=== PATIENT | male | born 1935 | race Caucasian/White ===

== ENCOUNTER 2017-09-25 11:55 | Inpatient (IN) | payer OTHER ==
[2017-09-25] MEDS ORDERED: NA CHLORIDE 0.9% 500 ML ONE ×2 (12:19→13:33)
[2017-09-25] MEDS ORDERED: LEVALBUTEROL 1.25 MG/3 ML NEB ONE (12:19)
[2017-09-25] MEDS ORDERED: ACETAMINOPHEN 325 MG TABLET ONE (12:20)
[2017-09-25 12:47] LABS: Absolute Lymphocytes (CBC) 0.6 K/uL (0.7-4.9); Absolute Monocytes 0.9 K/uL (0.1-1.3); Absolute Neutrophil 5.3 K/uL (1.8-8.0); Basophils % 0.5 % (0-1.3); Eosinophils % 0.2 % (0-4.4); Hematocrit 38.5 % (39.6-49.0); Lymphocytes % 8.1 % (15.3-44.8); MCH 30.7 pg (27.0-35.0); MCV 90.7 fL (80-100); MPV 8.2 fL (7.6-11.3); Monocytes % 12.6 % (3.3-12.3); RBC Red Blood Cell Count 4.24 M/uL (4.33-5.43)
[2017-09-25 13:06] LABS: Albumin 2.8 g/dL (3.4-5.0); Bilirubin Direct 0.1 mg/dL (0-0.2); Bilirubin Total 0.5 mg/dL (0.2-1.0); Potassium 3.7 mmol/L (3.5-5.1); Protein, Total 6.6 g/dL (6.4-8.2)
[2017-09-25 13:11] LABS: Urine Blood 2+ (NEG); Urine Glucose NEGATIVE (NEG); Urine Protein 2+ (NEG); Urine pH 5.5 (5.0-7.0)
[2017-09-25 13:18] LABS: Urine Bacteria >50 /HPF (NONE SEEN); Urine Culture Reflex Order NOT NEEDED
[2017-09-25] MEDS ORDERED: CEFTRIAXONE/SWI 1gm 1 GM/10 ML SYR ONE (13:33)
--- NOTE | 2017-09-25 14:16 | RAD REPORT ---
EXAM DESCRIPTION: [place] Single View09/25/2017 12:40 pm CLINICAL HISTORY: cough COMPARISON: January 2017 FINDINGS: The lungs appear clear of acute infiltrate. The heart is normal size IMPRESSION: No acute abnormalities displayed
[2017-09-25] MEDS ORDERED: ACETAMINOPHEN 500 MG TAB PO PRN (14:59)
[2017-09-25] MEDS ORDERED: ONDANSETRON 4 MG/2 ML VIAL IV PRN (14:59)
[2017-09-25] MEDS: NA CHLORIDE 0.9% 1,000 ML IV SCH ×2 (15:00→20:20)
--- NOTE | 2017-09-25 15:12 | ER ---
Nurse's Notes [facility] Name: Selvin Florentino Age: 82 yrs Sex: Male : 1935 Arrival Date: 09/25/2017 Time: 11:56 Bed 17 Private MD: Diagnosis: Urinary tract infection, site not specified;Altered mental status, unspecified;Dehydration Presentation: 09/25 12:04 Presenting complaint: EMS states: called out for weakness since the , pt bed bound em normally, SPO2 90% RA, placed on NC, 94% on 2L, BP 152/79, HR 89, denies chest pain or shortness of breath. Transition of care: patient was not received from another setting of care. Onset of symptoms was September 21, 2017. Risk Assessment: Do you want to hurt yourself or someone else? Patient reports no desire to harm self or others. Care prior to arrival: None. 12:04 Method Of Arrival: EMS: [facility] em 12:04 Acuity: TRACI 3 iw 12:42 Initial Sepsis Screen: Does the patient meet any 2 criteria? RR > 20 per min. Temp em <36.0*C (96.8*F)) or > 38.3*C (100.4*F). Yes Does the patient have a suspected source of infection? No. Patient's initial sepsis screen is negative. Triage Assessment: 12:09 General: Appears in no apparent distress. uncomfortable, Behavior is calm. Pain: Denies em pain. Historical: - Allergies: 12:09 No Known Allergies; em - Home Meds: 13:14 aspirin 81 mg Oral TbEC 1 tab once daily [Active]; lisinopril 2.5 mg oral tab 1 tab em once daily [Active]; omeprazole 40 mg oral cpDR 1 cap once daily [Active]; metformin 1,000 mg Oral tab 1 tab 2 times per day [Active]; metoprolol tartrate 50 mg oral tab [Active]; tamsulosin 0.4 mg Oral cp24 2 caps once daily [Active]; cetirizine 10 mg oral tab 1 tab once daily [Active]; - PMHx: 12:09 Diabetes - NIDDM; Hypertension; neuropathy; urinary incontinence; em - PSHx: 15:40 Hernia repair; Appendectomy; bunion; iw - Immunization history:: Adult Immunizations up to date. - Social history:: Smoking status: unknown. - Ebola Screening: : Patient negative for fever greater than or equal to 101.5 degrees Fahrenheit, and additional compatible Ebola Virus Disease symptoms Patient denies exposure to infectious person Patient denies travel to an Ebola-affected area in the 21 days before illness onset No symptoms or risks identified at this time. - Family history:: not pertinent. - Hospitalizations: : No recent hospitalization is reported. Screenin:11 Abuse screen: Denies threats or abuse. Nutritional screening: No deficits noted. em Tuberculosis screening: No symptoms or risk factors identified. Fall Risk None identified. Assessment: 12:33 General: Appears in no apparent distress. uncomfortable, warm to touch. Behavior is em calm, cooperative. Pain: Denies pain. Neuro: Level of Consciousness is awake, alert, obeys commands, Oriented to person, place, time, situation. Cardiovascular: Capillary refill < 3 seconds Patient's skin is warm and dry. Respiratory: Airway is patent Respiratory effort is even, shallow, Respiratory pattern is regular, tachypnea Breath sounds are diminished in right upper lobe, right middle lobe and right lower lobe Onset: The symptoms/episode began/occurred reports weakness since September,, the patient has mild shortness of breath Parent/caregiver reports the patient having cough that is non-productive. GI: Abdomen is flat, Bowel sounds present X 4 quads. Abd is soft and non tender X 4 quads. : Parent/caregiver report the patient having incontinence. EENT: No signs and/or symptoms were reported regarding the EENT system. Derm: Skin is intact, Skin is pink, warm \T\ dry. Musculoskeletal: Parent/caregiver report the patient having reports he is bed bound due to neuropathy. 12:45 Reassessment: Patient appears in no apparent distress at this time. I agree with above iw assessment by Sukhdeep Wilkins LVN. 13:30 Reassessment: Patient appears in no apparent distress at this time. Patient and/or em family updated on plan of care and expected duration. Pain level reassessed. Patient is alert, oriented x 3, equal unlabored respirations, skin warm/dry/pink. BP 90/57, HR 87, SPO2 94 2L via [place], Dr. Cole notified of VS, will continue to monitor. 14:18 Reassessment: Patient appears in no apparent distress at this time. resting comfortably em with eyes closed, family at bedside. 15:10 Reassessment: Patient appears in no apparent distress at this time. Patient and/or em family updated on plan of care and expected duration. Pain level reassessed. Patient states symptoms have improved. 15:41 Reassessment: Patient appears in no apparent distress at this time. Patient and/or iw family updated on plan of care and expected duration. Pain level reassessed. given socks and warm blanket. Vital Signs: 12:09 BP 152 / 79; Pulse 79; Resp 24; Pulse Ox 92% on 2 lpm NC; Weight 83.91 kg; Height 6 ft. em 2 in. (187.96 cm); Pain 0/10; 12:12 Temp 101.3(R); em 13:18 BP 95 / 59; Pulse 87; Resp 19; Pulse Ox 95% on 2 lpm NC; em 13:30 BP 90 / 57; Pulse 84; Resp 22; Pulse Ox 94% on 2 lpm NC; iw 14:00 BP 94 / 55; Pulse 82; Resp 22; Temp 99.2(R); Pulse Ox 92% on 2 lpm NC; em 14:30 BP 107 / 61; Pulse 76; Resp 20; Pulse Ox 97% on 2 lpm NC; em 12:09 Body Mass Index 23.75 (83.91 kg, 187.96 cm) em ED Course: 11:56 Patient arrived in ED. rn 11:56 Morris Cole MD is Attending Physician. rn 11:59 Sukhdeep Wilkins LVN is Primary Nurse. em 12:11 Arm band placed on. em 12:12 Patient has correct armband on for positive identification. Bed in low position. Call em light in reach. Side rails up X2. Adult w/ patient. 12:30 Initial lab(s) drawn, by id, sent to lab. First set of blood cultures drawn by id, [facility] Second set of blood cultures drawn by id. 12:36 Inserted saline lock: 22 gauge in right forearm, using aseptic technique. Blood 5 collected. 12:38 Pillow given. client representative on. Pulse ox on. NIBP on. mh5 12:40 XRAY CXR (1 view) In Process Unspecified. EDMS 13:08 Urine collected: straight cath specimen, cloudy, Amount Returned: 200mL. 5 13:09 Urine Culture Sent. 5 13:09 Urine Microscopic Only Sent. 5 13:10 Triage completed. iw 13:10 Lactate Sent. 5 13:10 Procalcitonin Sent. 5 13:10 Blood Culture Adult (2) Sent. 5 14:37 No provider procedures requiring assistance completed. em 15:11 Genevieve Lanier MD is Hospitalizing Provider. rn 15:38 Patient admitted, IV remains in place. iw Administered Medications: 12:29 Drug: Xopenex 1.25 mg Route: Inhalation; em 13:00 Follow up: Response: No adverse reaction em 12:29 Drug: Tylenol 650 mg Route: PO; em 14:15 Follow up: Response: No adverse reaction; Pain is decreased em 12:45 Drug: NS 0.9% 500 ml Route: IV; Rate: bolus; Site: right forearm; em 13:30 Follow up: IV Status: Completed infusion; IV Intake: 500ml em 13:34 Drug: NS 0.9% 500 ml Route: IV; Rate: bolus; Site: right forearm; em 14:16 Follow up: IV Status: Completed infusion; IV Intake: 500ml em 13:35 Drug: Rocephin - (cefTRIAXone) 1 grams Route: IVPB; Infused Over: 30 mins; Site: right iw forearm; 14:17 Follow up: IV Status: Completed infusion; IV Intake: 10ml em 15:21 Not Given (Physician Discretion): D5-NS 1000 ml IV at 125 ml/hr continuous iw 15:27 Drug: NS 0.9% 1000 ml Route: IV; Rate: 100 ml/hr; Site: right forearm; em 15:35 Follow up: IV Status: Infusion continued upon admission em Intake: 13:30 IV: 500ml; Total: 500ml. em 14:16 IV: 500ml; Total: 1000ml. em 14:17 IV: 10ml; Total: 1010ml. em Outcome: 15:11 Decision to Hospitalize by Provider. rn 15:42 Admitted to Tele accompanied by tech, family with patient, via stretcher, room 403, iw with oxygen, with chart, Report called to SHERIE Collier 15:42 Condition: good 15:42 Instructed on the need for admit, Demonstrated understanding of instructions. 16:00 Patient left the ED. em Signatures: Dispatcher [employer] EDSukhdeep Harman, IT ARCHITECT IT ARCHITECT em Kamila Moreland, Morris Najera RN, MD MD rn Martinez, Maria [facility] Corrections: (The following items were deleted from the chart) 12:12 12:04 Presenting complaint: EMS states: called out for weakness since the , pt bed em bound normally, SPO2 90% RA, placed on NC, 94% on 2L, BP 152/79, HR 89 em
--- NOTE | 2017-09-25 15:12 | EDPHYS ---
Physician Documentation [facility] Name: Selvin Flornetino Age: 82 yrs Sex: Male : 1935 Arrival Date: 09/25/2017 Time: 11:56 Bed 17 Private MD: ED Physician Morris Cole HPI: 09/25 12:11 This 82 yrs old Male presents to ER via EMS with complaints of altered mental rn status. 12:11 The patient presents with confusion, decreased responsiveness. Onset: The rn symptoms/episode began/occurred yesterday. Possible causes: unknown. Current symptoms: In the emergency department the patient's symptoms are unchanged from the initial presentation. It is unknown whether or not the patient has had similar symptoms in the past. + altered mental status since yesterday, + cough, feels warm, decreased responsiveness.. Historical: - Allergies: 12:09 No Known Allergies; em - Home Meds: 13:14 aspirin 81 mg Oral TbEC 1 tab once daily [Active]; lisinopril 2.5 mg oral tab 1 tab em once daily [Active]; omeprazole 40 mg oral cpDR 1 cap once daily [Active]; metformin 1,000 mg Oral tab 1 tab 2 times per day [Active]; metoprolol tartrate 50 mg oral tab [Active]; tamsulosin 0.4 mg Oral cp24 2 caps once daily [Active]; cetirizine 10 mg oral tab 1 tab once daily [Active]; - PMHx: 12:09 Diabetes - NIDDM; Hypertension; neuropathy; urinary incontinence; em - PSHx: 15:40 Hernia repair; Appendectomy; bunion; iw - Immunization history:: Adult Immunizations up to date. - Social history:: Smoking status: unknown. - Ebola Screening: : Patient negative for fever greater than or equal to 101.5 degrees Fahrenheit, and additional compatible Ebola Virus Disease symptoms Patient denies exposure to infectious person Patient denies travel to an Ebola-affected area in the 21 days before illness onset No symptoms or risks identified at this time. - Family history:: not pertinent. - Hospitalizations: : No recent hospitalization is reported. 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 Eyes: Pupils equal round and reactive to light, extra-ocular motions intact. Lids and lashes normal. Conjunctiva and sclera are non-icteric and not injected. Cornea within normal limits. Periorbital areas with no swelling, redness, or edema. ENT: dry MM Cardiovascular: Regular rate and rhythm with a normal S1 and S2. No gallops, murmurs, or rubs. Normal PMI, no JVD. No pulse deficits. Respiratory: + tachypnea with mouth breathing, diminished breath sounds right side Abdomen/GI: Soft, non-tender, with normal bowel sounds. No distension or tympany. No guarding or rebound. No evidence of tenderness throughout. Skin: Warm, dry, no evidence of cellulitis. MS/ Extremity: Pulses equal, no cyanosis. Neurovascular intact. Neuro: Somnolent, answers questions, moves all 4 extremities with moderate weakness, can't keep limbs off of bed, slow speech Vital Signs: 12:09 BP 152 / 79; Pulse 79; Resp 24; Pulse Ox 92% on 2 lpm NC; Weight 83.91 kg; Height 6 ft. em 2 in. (187.96 cm); Pain 0/10; 12:12 Temp 101.3(R); em 13:18 BP 95 / 59; Pulse 87; Resp 19; Pulse Ox 95% on 2 lpm NC; em 13:30 BP 90 / 57; Pulse 84; Resp 22; Pulse Ox 94% on 2 lpm NC; iw 14:00 BP 94 / 55; Pulse 82; Resp 22; Temp 99.2(R); Pulse Ox 92% on 2 lpm NC; em 14:30 BP 107 / 61; Pulse 76; Resp 20; Pulse Ox 97% on 2 lpm NC; em 12:09 Body Mass Index 23.75 (83.91 kg, 187.96 cm) em MDM: 11:56 Patient medically screened. rn 15:09 Differential Diagnosis: electrolyte abnormality, pneumonia, sepsis, UTI, volume rn depletion. Data reviewed: vital signs, nurses notes, lab test result(s), EKG, radiologic studies, plain films, and as a result, I will admit patient. Counseling: I had a detailed discussion with the patient and/or guardian regarding: the historical points, exam findings, and any diagnostic results supporting the discharge/admit diagnosis, lab results, radiology results, the need for further work-up and treatment in the hospital. Response to treatment: the patient's symptoms have mildly improved after treatment, and as a result, I will admit patient. Admission orders: after a detailed discussion of the patient's condition and case, the admit orders are written by me. ED course: Admitted to Dr. Lanier for UTI and delirium/dehydration. Improved BP with fluids.. 09/25 12:00 Order name: Blood Culture Adult (2) rn 09/25 12:00 Order name: BMP; Complete Time: 13:46 rn 09/25 12:00 Order name: CBC with Diff; Complete Time: 13:04 rn 09/25 12:00 Order name: Hepatic Function; Complete Time: 13:46 rn 09/25 12:00 Order name: Lipase; Complete Time: 13:46 rn 09/25 12:00 Order name: NT PRO-BNP; Complete Time: 13:46 rn 09/25 12:00 Order name: XRAY CXR (1 view); Complete Time: 14:17 rn 09/25 12:00 Order name: Troponin (emerg Dept Use Only); Complete Time: 13:46 rn 09/25 12:00 Order name: Procalcitonin; Complete Time: 13:46 rn 09/25 12:00 Order name: Lactate; Complete Time: 13:46 rn 09/25 12:00 Order name: Urine Microscopic Only; Complete Time: 13:46 rn 09/25 12:00 Order name: Urine Culture rn 09/25 13:09 Order name: Urine Dipstick--Ancillary (enter results); Complete Time: 13:46 bd 09/25 12:00 Order name: EKG; Complete Time: 12:00 rn 09/25 12:00 Order name: Cardiac monitoring; Complete Time: 12:13 rn 09/25 12:00 Order name: EKG - Nurse/Tech; Complete Time: 12:13 rn 09/25 12:00 Order name: IV Saline Lock; Complete Time: 12:13 rn 09/25 12:00 Order name: Labs collected and sent; Complete Time: 12: rn 09/25 12:00 Order name: O2 Per Protocol; Complete Time: 12:13 rn 09/25 12:00 Order name: O2 Sat Monitoring; Complete Time: 12: rn 09/25 12:00 Order name: Urine Dipstick-Ancillary (obtain specimen); Complete Time: 13: rn 09/25 15:02 Order name: Physical Therapy Consult EDMS 09/25 15:02 Order name: Heart Healthy EDMS Administered Medications: 12:29 Drug: Xopenex 1.25 mg Route: Inhalation; em 13:00 Follow up: Response: No adverse reaction em 12:29 Drug: Tylenol 650 mg Route: PO; em 14:15 Follow up: Response: No adverse reaction; Pain is decreased em 12:45 Drug: NS 0.9% 500 ml Route: IV; Rate: bolus; Site: right forearm; em 13:30 Follow up: IV Status: Completed infusion; IV Intake: 500ml em 13:34 Drug: NS 0.9% 500 ml Route: IV; Rate: bolus; Site: right forearm; em 14:16 Follow up: IV Status: Completed infusion; IV Intake: 500ml em 13:35 Drug: Rocephin - (cefTRIAXone) 1 grams Route: IVPB; Infused Over: 30 mins; Site: right iw forearm; 14:17 Follow up: IV Status: Completed infusion; IV Intake: 10ml em 15:21 Not Given (Physician Discretion): D5-NS 1000 ml IV at 125 ml/hr continuous iw 15:27 Drug: NS 0.9% 1000 ml Route: IV; Rate: 100 ml/hr; Site: right forearm; em 15:35 Follow up: IV Status: Infusion continued upon admission em Disposition: 09/25/17 15:11 Hospitalization ordered by Genevieve Lanier for Inpatient Admission. Preliminary diagnosis are Urinary tract infection, site not specified, Altered mental status, unspecified, Dehydration. - Bed requested for Telemetry/MedSurg (Inpatient). - Status is Inpatient Admission. em - Condition is Stable. - Problem is new. - Symptoms have improved. UTI on Admission? Yes Signatures: Dispatcher [employer] EDMS Katherine Jorgensen bd Maryjane Doshi, SHERIE REHMAN dw Sukhdeep Wilkins, BRAZING FURNACE FEEDER BRAZING FURNACE FEEDER em Kamila Moreland, RN SHERIE iw Morris Cole MD MD heel varnisher: (The following items were deleted from the chart) 15:24 15:11 Hospitalization Ordered by Genevieve Lanier MD for Inpatient Admission. Preliminary dw diagnosis is Urinary tract infection, site not specified; Altered mental status, unspecified; Dehydration. Bed requested for Telemetry/MedSurg (Inpatient). Status is Inpatient Admission. Condition is Stable. Problem is new. Symptoms have improved. UTI on Admission? Yes. rn 15:24 15:24 09/25/2017 15:11 Hospitalization Ordered by Genevieve Lanier MD for Inpatient bd Admission. Preliminary diagnosis is Urinary tract infection, site not specified; Altered mental status, unspecified; Dehydration. Bed requested for Telemetry/MedSurg (Inpatient). Status is Inpatient Admission. Condition is Stable. Problem is new. Symptoms have improved. UTI on Admission? Yes. dw 16:00 15:24 09/25/2017 15:11 Hospitalization Ordered by Genevieve Lanier MD for Inpatient em Admission. Preliminary diagnosis is Urinary tract infection, site not specified; Altered mental status, unspecified; Dehydration. Bed requested for Telemetry/MedSurg (Inpatient). Status is Inpatient Admission. Condition is Stable. Problem is new. Symptoms have improved. UTI on Admission? Yes. bd
--- NOTE | 2017-09-25 16:11 | P.HP ---
Certification for Inpatient Patient admitted to: Inpatient With expected LOS: >2 Midnights Patient will require the following post-hospital care: None Practitioner: I am a practitioner with admitting privileges, knowledge of patient current condition, hospital course, and medical plan of care. Services: Services provided to patient in accordance with Admission requirements found in Title 42 Section 412.3 of the Code of Federal Regulations Patient History Date of Service: 09/25/17 Primary Care Provider: Dr Emmett gunter Reason for admission: AMS History of Present Illness: This is a 82-year-old male with significant past medical history of AAA, diabetes, hypertension, CAD, hyperlipidemia, who presented to the ED complaining of having generalized weakness and has been somnolence since past 4 days. Patient's at bedside stated that patient has been increasingly sleepy for past 4 days and has been having some generalized weakness. Patient at baseline usually does sleep a lot per at bedside and his bed-bound does get around with electric scooter however noted that recently he has been sleeping more than usual and has been not able to get up to his electric scooter. Did have fever at the house however patient shins did not measure that at home and having some trouble urinating as well. No other complaints to offer this time denies having any shortness of breath chest pain nausea vomiting or any other associated symptoms at this time. In the ER patient was found to be hypotensive along with UA which was concerning for UTI and thus medicine team was consulted to admit the patient for further care. Patient also had a T-max of 101 in the ER. Allergies No Known Allergies Allergy (Unverified 01/19/17 07:00) Home Medications: Aspirin 81 mg PO DAILY 12/13/12 Fluvastatin Sodium [Lescol Xl] 80 mg PO DAILY 12/13/12 Tamsulosin [Flomax*] 2 cap PO BEDTIME 12/13/12 Ascorbate Calcium [Vitamin C] 500 mg PO DAILY 01/19/17 Cetirizine HCl 10 mg PO DAILY 01/19/17 Cinnamon Bark [Cinnamon] 1,000 mg PO DAILY 01/19/17 Cyanocobalamin (Vitamin B-12) [Vitamin B-12] 1,000 mcg PO DAILY 01/19/17 Suri Root 550 mg PO DAILY 01/19/17 Green Tea [place] Extract [Green Tea] 315 mg PO DAILY 01/19/17 Krill/[place]-3/Dha/Epa/Lipids [[place]-3 Krill Oil 500 mg Sfgl] 1 cap PO DAILY Lisinopril [Zestril] 2.5 mg PO DAILY 01/19/17 Lutein 20 mg PO DAILY 01/19/17 Magnesium Oxide [Magnesium] 500 mg PO DAILY 01/19/17 Metformin HCl 1,000 mg PO BID 01/19/17 Metoprolol Succinate [Toprol Xl] 50 mg PO DAILY 01/19/17 Niacin 500 mg PO DAILY 01/19/17 Omeprazole [Prilosec] 40 mg PO DAILY 01/19/17 Potassium 99 mg PO DAILY 01/19/17 Prasterone (Dhea) [Dhea] 50 mg PO DAILY 01/19/17 Red Yeast Rice 1,200 mg PO DAILY 01/19/17 Turmeric Root Extract [Turmeric] 500 mg PO DAILY 01/19/17 Ubidecarenone [Ultra Coq10] 1 cap PO DAILY 01/19/17 Zinc 50 mg PO DAILY 01/19/17 - Past Medical/Surgical History Diabetic: Yes -: diabetes -: high cholesterol -: GERD -: HTN -: pneumonia -: Inguinal hernia -: Aortic Stent -: Hernia repair -: appendectomy -: Cholecystectomy - Social History Alcohol use: No CD- Drugs: No Caffeine use: No Review of Systems General: As per HPI Physical Examination - Physical Exam General: In no apparent distress, Oriented x1, Other ([place]om[place]onentq) HEENT: Atraumatic Neck: Supple Respiratory: Clear to auscultation bilaterally, Normal air movement Cardiovascular: Regular rate/rhythm, Normal S1 S2 Gastrointestinal: Normal bowel sounds, Soft and benign, Non-distended, No tenderness Musculoskeletal: No tenderness Integumentary: No rashes Neurological: Normal gait, Normal speech, Normal strength at 5/5 x4 extr, Normal tone, Normal affect Lymphatics: No axilla or inguinal lymphadenopathy - Studies Laboratory Data (last 24 hrs) 09/25/17 12:15: WBC 6.8, Hgb 13.0 L, Hct 38.5 L, Plt Count 211 09/25/17 12:15: Sodium 139, Potassium 3.7, BUN 13, Creatinine 1.10, Glucose 176 H, Total Bilirubin 0.5, AST 10 L, ALT 15, Alkaline Phosphatase 78, Lipase 71 L Assessment and Plan - Problems (Diagnosis) (1) Toxic encephalopathy Current Visit: Yes Status: Acute Plan: AMS most likely secondary to urinary tract infection. -will go ahead and get an head CT to rule out any acute CVA. -UA was positive for more than 50 bacteria along with leuk Estrace. Patient will be started on IV antibiotics at this time. Will monitor for improvement. (2) UTI (urinary tract infection) Current Visit: Yes Status: Acute Plan: UA positive for UTI. -IV antibiotics at this time Rocephin. -will get blood culture and urine culture this time as well. -will follow up with labs in morning. Qualifiers: Urinary tract infection type: acute cystitis Hematuria presence: without hematuria Qualified Code(s): N30.00 - Acute cystitis without hematuria (3) Generalized weakness Current Visit: No Status: Chronic Plan: Generalized weakness most likely secondary to infectious disease. Will go ahead and hydrate patient along with IV antibiotics. Will also consult physical therapy at this time. Patient generally is not very mobile at home he uses electric scooter to get around. assists with his activities of daily living. At most patient is able to sit up in the chair or at the edge of the bed. Will go ahead and get physical therapy for rehab here in the hospital. (4) AAA (abdominal aortic aneurysm) Onset Date: 01/19/17 Current Visit: No Status: Chronic Plan: Currently stable at this time will go ahead and restart all the medications at this time. Qualifiers: Presence of rupture: without rupture (5) CAD (coronary artery disease) Onset Date: 01/19/17 Current Visit: No Status: Chronic Plan: Currently stable at this time in no chest pain noted. Will restart medications from home Qualifiers: Coronary Disease-Associated Artery/Lesion type: [place] artery [place] vs. transplanted heart: [place] heart Associated angina: without angina Qualified Code(s): I25.10 - Atherosclerotic heart disease of [place] coronary artery without angina pectoris (6) Diabetes mellitus Onset Date: 01/19/17 Current Visit: No Status: Chronic Plan: Will place patient on insulin sliding scale moderate at this Qualifiers: Diabetes mellitus type: type 2 Diabetes mellitus long-term insulin use: without long-term use Diabetes mellitus complication status: without complication Qualified Code(s): E11.9 - Type 2 diabetes mellitus without complications (7) HTN (hypertension) Onset Date: 01/19/17 Current Visit: No Status: Chronic Plan: Patient is initial blood pressure in the ER was hypotensive will hold blood pressure medication at this time. Most likely secondary to infectious process. Patient is currently status post 500 bolus and blood pressure has normalized. Will continue to monitor here along with cardiac tele. Qualifiers: Hypertension type: essential hypertension Discharge Plan: Home Plan to discharge in: 48 Hours - Advance Directives Does patient have a Living Will: No Does patient have a Durable POA for Healthcare: Yes - Code Status/Comfort Care Code Status Assessed: Yes Critical Care: No
[2017-09-25] MEDS: INSULIN -REGULAR HUMAN 50 UNIT/0.5 ML ML SQ SCH ×2 (16:30→20:20)
[2017-09-25 16:33] VITALS: BMI 23.2
[2017-09-25] MEDS: ENOXAPARIN 40 MG/0.4 ML SQ SCH (17:50)
[2017-09-25] MEDS: TAMSULOSIN 0.4 MG SR CAP PO SCH (20:20)
[2017-09-25] MEDS ORDERED: POTASSIUM 25 MEQ EFFERV TAB PO ONE (21:00)
[2017-09-26] MEDS: PANTOPRAZOLE 40MG TABLET PO SCH (05:31)
[2017-09-26 07:02] LABS: Absolute Lymphocytes (CBC) 0.8 K/uL (0.7-4.9); Absolute Monocytes 0.7 K/uL (0.1-1.3); Absolute Neutrophil 4.5 K/uL (1.8-8.0); Basophils % 0.5 % (0-1.3); Eosinophils % 0.3 % (0-4.4); Hematocrit 35.1 % (39.6-49.0); Lymphocytes % 12.5 % (15.3-44.8); MCH 30.8 pg (27.0-35.0); MCV 91.2 fL (80-100); MPV 8.5 fL (7.6-11.3); Monocytes % 11.8 % (3.3-12.3); RBC Red Blood Cell Count 3.85 M/uL (4.33-5.43)
[2017-09-26 07:11] LABS: Albumin 2.4 g/dL (3.4-5.0); Bilirubin Total 0.4 mg/dL (0.2-1.0); Magnesium 1.6 mg/dL (1.8-2.4); Phosphorus 2.8 mg/dL (2.5-4.9); Potassium 3.9 mmol/L (3.5-5.1); Protein, Total 5.8 g/dL (6.4-8.2)
[2017-09-26] MEDS: INSULIN -REGULAR HUMAN 50 UNIT/0.5 ML ML SQ SCH ×4 (07:30→21:00)
[2017-09-26] MEDS ORDERED: GLUCAGON 1 MG/VIAL IM PRN (07:32)
[2017-09-26] MEDS ORDERED: D50W 25 GM/50 ML SYRINGE IV PRN (07:32)
[2017-09-26] MEDS ORDERED: Magnesium Sulfate 1gm IVPB 1 GM/50 ML BAG IV ONE (07:45)
[2017-09-26] MEDS: LISINOPRIL 5 MG TAB PO SCH (08:31)
[2017-09-26] MEDS: METOPROLOL XL 50 MG TAB PO SCH (08:32)
[2017-09-26] MEDS: ASCORBIC ACID 500 MG TABLET PO SCH (08:32)
[2017-09-26] MEDS: CYANOCOBALAMIN 1,000 MCG TAB PO SCH (08:32)
[2017-09-26] MEDS: ASPIRIN 81 MG CHEWABLE TABLET PO SCH (08:32)
[2017-09-26] MEDS: CETIRIZINE HCL 5 MG TABLET PO SCH (08:32)
[2017-09-26] MEDS: CEFTRIAXONE/SWI 1gm 1 GM/10 ML SYR IV SCH (08:33)
[2017-09-26] MEDS ORDERED: CEFTRIAXONE 1 GM/NS 50 ML 1 GM/50 ML BAG IV SCH (09:00)
[2017-09-26] MEDS ORDERED: HOME MED 1 EA UNK (Omeprazole [Prilosec] 40 MG) PO SCH (09:00)
[2017-09-26] MEDS ORDERED: POTASSIUM 25 MEQ EFFERV TAB PO ONE (09:00)
[2017-09-26] MEDS: NA CHLORIDE 0.9% 1,000 ML IV SCH ×2 (11:00→22:54)
--- NOTE | 2017-09-26 12:23 | P.PN ---
Subjective Date of Service: 09/26/17 Primary Care Provider: Dr Emmett gunter Chief Complaint: AMS Patient seen and examined at bedside with RN. Chart reviewed. Currently patient is doing much better than before. Alert and oriented x2. Still appears to be a little drowsy however improved from yesterday. No other complaints to offer. Patient remained afebrile overnight did have runs of 7 seconds of V-tach at night time. Review of Systems General: As per HPI Physical Examination - Vital Signs Temperature: 98.6 F Blood Pressure: 160/78 Pulse: 68 Respirations: 16 Pulse Ox (%): 97 - Physical Exam General: Alert, In no apparent distress, Oriented x2 HEENT: Atraumatic, PERRLA, EOMI Neck: Supple, JVD not distended Respiratory: Clear to auscultation bilaterally, Normal air movement Cardiovascular: Regular rate/rhythm, Normal S1 S2 Gastrointestinal: Normal bowel sounds, No tenderness Musculoskeletal: No tenderness Integumentary: No rashes Neurological: Normal speech, Normal tone, Normal affect Lymphatics: No axilla or inguinal lymphadenopathy - Studies Laboratory Data (last 24 hrs) 09/25/17 12:15: WBC 6.8, Hgb 13.0 L, Hct 38.5 L, Plt Count 211 09/25/17 12:15: Sodium 139, Potassium 3.7, BUN 13, Creatinine 1.10, Glucose 176 H, Total Bilirubin 0.5, AST 10 L, ALT 15, Alkaline Phosphatase 78, Lipase 71 L Medications List Reviewed: Yes Assessment & Plan - Problems (Diagnosis) (1) Toxic encephalopathy Current Visit: Yes Status: Acute Plan: AMS most likely secondary to UTI -UA was positive for more than 50 bacteria along with leuk Estrace. -Patient on IV antibiotics at this time. Will monitor for improvement. (2) UTI (urinary tract infection) Current Visit: Yes Status: Acute Plan: UA positive for UTI. -IV antibiotics at this time Rocephin. -urine culture and blood culture pending this time -will follow up with labs in morning. Qualifiers: Urinary tract infection type: acute cystitis Hematuria presence: without hematuria Qualified Code(s): N30.00 - Acute cystitis without hematuria (3) Generalized weakness Current Visit: No Status: Chronic Plan: Generalized weakness most likely secondary to infectious disease. Will go ahead and hydrate patient along with IV antibiotics. Will also consult physical therapy at this time. Patient generally is not very mobile at home he uses electric scooter to get around. assists with his activities of daily living. At most patient is able to sit up in the chair or at the edge of the bed. Will go ahead and get physical therapy for rehab here in the hospital. (4) AAA (abdominal aortic aneurysm) Onset Date: 01/19/17 Current Visit: No Status: Chronic Plan: Currently stable at this time will go ahead and restart all the medications at this time. Qualifiers: Presence of rupture: without rupture (5) CAD (coronary artery disease) Onset Date: 01/19/17 Current Visit: No Status: Chronic Plan: Currently stable at this time in no chest pain noted. Will restart medications from home Qualifiers: Coronary Disease-Associated Artery/Lesion type: [place] artery [place] vs. transplanted heart: [place] heart Associated angina: without angina Qualified Code(s): I25.10 - Atherosclerotic heart disease of [place] coronary artery without angina pectoris (6) Diabetes mellitus Onset Date: 01/19/17 Current Visit: No Status: Chronic Plan: Will place patient on insulin sliding scale moderate at this Qualifiers: Diabetes mellitus type: type 2 Diabetes mellitus adjunct faculty for medical terminology insulin use: without adjunct faculty for medical terminology use Diabetes mellitus complication status: without complication Qualified Code(s): E11.9 - Type 2 diabetes mellitus without complications (7) HTN (hypertension) Onset Date: 01/19/17 Current Visit: No Status: Chronic Plan: Patient is initial blood pressure in the ER was hypotensive will hold blood pressure medication at this time. Most likely secondary to infectious process. Patient is currently status post 500 bolus and blood pressure has normalized. Will continue to monitor here along with cardiac tele. Qualifiers: Hypertension type: essential hypertension Discharge Plan: Home Plan to discharge in: 48 Hours - Code Status/Comfort Care Code Status Assessed: Yes Critical Care: No
[2017-09-26] MEDS: ENOXAPARIN 40 MG/0.4 ML SQ SCH (17:59)
[2017-09-26] MEDS: TAMSULOSIN 0.4 MG SR CAP PO SCH (21:02)
[2017-09-27 04:16] LABS: Absolute Lymphocytes (CBC) 0.8 K/uL (0.7-4.9); Absolute Monocytes 0.6 K/uL (0.1-1.3); Absolute Neutrophil 3.1 K/uL (1.8-8.0); Basophils % 0.7 % (0-1.3); Eosinophils % 4.1 % (0-4.4); Hematocrit 34.6 % (39.6-49.0); Lymphocytes % 17.1 % (15.3-44.8); MCH 31.1 pg (27.0-35.0); MCV 91.1 fL (80-100); MPV 8.2 fL (7.6-11.3); Monocytes % 13.5 % (3.3-12.3); RBC Red Blood Cell Count 3.79 M/uL (4.33-5.43)
[2017-09-27 04:28] LABS: Albumin 2.2 g/dL (3.4-5.0); Bilirubin Total 0.2 mg/dL (0.2-1.0); Potassium 4.2 mmol/L (3.5-5.1); Protein, Total 5.7 g/dL (6.4-8.2)
[2017-09-27] MEDS: PANTOPRAZOLE 40MG TABLET PO SCH (05:06)
[2017-09-27] MEDS: INSULIN -REGULAR HUMAN 50 UNIT/0.5 ML ML SQ SCH ×4 (07:30→20:56)
--- NOTE | 2017-09-27 07:46 | EKG ---
Test Date: 2017-09-25 Test Time: 12:03:33 Pan Dumper: LAINEY MEASUREMENT RESULTS: Intervals: Rate: 87 NM: 178 QRSD: 122 QT: 394 QTc: 474 [place]: P: 60 NM: 178 QRS: -39 T: 54 INTERPRETIVE STATEMENTS: Sinus rhythm with premature supraventricular complexes Left axis deviation Right bundle branch block Septal infarct, age undetermined Abnormal ECG Compared to ECG 01/19/2017 01:05:31 Atrial premature complex(es) now present Myocardial infarct finding now present First degree AV block no longer present Electronically Signed On 09-27-17 07:46:02 CDT by Forrest Zayas
[2017-09-27] MEDS: CEFTRIAXONE/SWI 1gm 1 GM/10 ML SYR IV SCH (08:27)
[2017-09-27] MEDS: CETIRIZINE HCL 5 MG TABLET PO SCH (08:28)
[2017-09-27] MEDS: CYANOCOBALAMIN 1,000 MCG TAB PO SCH (08:28)
[2017-09-27] MEDS: ASCORBIC ACID 500 MG TABLET PO SCH (08:28)
[2017-09-27] MEDS: LISINOPRIL 5 MG TAB PO SCH (08:28)
[2017-09-27] MEDS: ASPIRIN 81 MG CHEWABLE TABLET PO SCH (08:28)
[2017-09-27] MEDS: METOPROLOL XL 50 MG TAB PO SCH (08:28)
[2017-09-27] MEDS: NA CHLORIDE 0.9% 1,000 ML IV SCH ×3 (08:33→18:20)
[2017-09-27 08:48] VITALS: O2SAT 93
--- NOTE | 2017-09-27 11:51 | P.PN ---
Subjective Date of Service: 09/27/17 Primary Care Provider: Dr Emmett gunter Chief Complaint: AMS Patient seen and examined at bedside with RN. Chart reviewed. Currently patient is doing much better than before. Alert and oriented x2. Patient still exhibiting signs of generalized weakness. Currently has not worked with physical therapy today. Physically therapy saw the patient yesterday however patient was quite lethargic with them yesterday and had no strength bilateral lower extremity. Currently patient is awaiting physical therapy this morning. Review of Systems General: As per HPI Physical Examination - Vital Signs Temperature: 97.6 F Blood Pressure: 175/82 Pulse: 68 Respirations: 16 Pulse Ox (%): 93 - Physical Exam General: Alert, In no apparent distress, Oriented x2, [place] HEENT: Atraumatic, PERRLA, EOMI Neck: Supple, JVD not distended Respiratory: Clear to auscultation bilaterally, Normal air movement Cardiovascular: Regular rate/rhythm, Normal S1 S2 Gastrointestinal: Normal bowel sounds, No tenderness Musculoskeletal: No tenderness Integumentary: No rashes Neurological: Normal speech, Normal tone, Normal affect Lymphatics: No axilla or inguinal lymphadenopathy - Studies Microbiology Data (last 24 hrs): 09/25/17 13:07 Catheterized Urine Atkins Count - Final >100,000 CFU/ML. 09/25/17 13:07 Catheterized Urine - Final Escherichia Coli Medications List Reviewed: Yes Assessment & Plan - Problems (Diagnosis) (1) Generalized weakness Onset Date: 09/27/17 Current Visit: Yes Status: Chronic Plan: Generalized weakness most likely secondary to infectious disease. - Patient generally is not very mobile at home he uses electric scooter to get around. assists with his activities of daily living. At most patient is able to sit up in the chair or at the edge of the bed. - will have patient worked with physical therapy today. Give him 1 more days of IV antibiotics and therapy here in the hospital and will be able to be discharge in next 24-48 hr. (2) Toxic encephalopathy Onset Date: 09/27/17 Current Visit: Yes Status: Acute Plan: AMS most likely secondary to UTI, Resolved now -Urine culture positive for E. coli. [place] sensitive to of antibiotics. -patient currently on IV Rocephin can be switched to Augmentin on discharge. (3) UTI (urinary tract infection) Onset Date: 09/27/17 Current Visit: Yes Status: Acute Plan: UA positive for UTI. Urine culture positive for E. coli pansensitive to antibiotics. Will switch to Augmentin on discharge. Qualifiers: Urinary tract infection type: acute cystitis Hematuria presence: without hematuria Qualified Code(s): N30.00 - Acute cystitis without hematuria (4) AAA (abdominal aortic aneurysm) Onset Date: 01/19/17 Current Visit: No Status: Chronic Plan: Currently stable. Qualifiers: Presence of rupture: without rupture (5) CAD (coronary artery disease) Onset Date: 01/19/17 Current Visit: No Status: Chronic Plan: Currently stable at this time in no chest pain noted. Qualifiers: Coronary Disease-Associated Artery/Lesion type: [place] artery [place] vs. transplanted heart: [place] heart Associated angina: without angina Qualified Code(s): I25.10 - Atherosclerotic heart disease of [place] coronary artery without angina pectoris (6) Diabetes mellitus Onset Date: 01/19/17 Current Visit: No Status: Chronic Plan: On insulin sliding scale moderate at this Qualifiers: Diabetes mellitus type: type 2 Diabetes mellitus nursing home insulin use: without director human services use Diabetes mellitus complication status: without complication Qualified Code(s): E11.9 - Type 2 diabetes mellitus without complications (7) HTN (hypertension) Onset Date: 01/19/17 Current Visit: No Status: Chronic Plan: Currently stable. Restart home medication as needed. Qualifiers: Hypertension type: essential hypertension Discharge Plan: Home Plan to discharge in: 24 Hours - Code Status/Comfort Care Code Status Assessed: Yes Critical Care: No
[2017-09-27] MEDS: ENOXAPARIN 40 MG/0.4 ML SQ SCH (18:21)
[2017-09-27] MEDS: TAMSULOSIN 0.4 MG SR CAP PO SCH (20:56)
[2017-09-28] MEDS: NA CHLORIDE 0.9% 1,000 ML IV SCH ×2 (04:46→13:00)
[2017-09-28 05:53] LABS: Absolute Monocytes 0.7 K/uL (0.1-1.3); Absolute Neutrophil 2.9 K/uL (1.8-8.0); Basophils % 0.7 % (0-1.3); Eosinophils % 5.9 % (0-4.4); Hematocrit 35.5 % (39.6-49.0); Lymphocytes % 19.5 % (15.3-44.8); MCH 30.9 pg (27.0-35.0); MCV 91.4 fL (80-100); Monocytes % 14.7 % (3.3-12.3); RBC Red Blood Cell Count 3.88 M/uL (4.33-5.43)
[2017-09-28 06:07] LABS: Albumin 2.3 g/dL (3.4-5.0); Bilirubin Total 0.3 mg/dL (0.2-1.0); Magnesium 1.9 mg/dL (1.8-2.4); Protein, Total 5.7 g/dL (6.4-8.2)
[2017-09-28] MEDS: PANTOPRAZOLE 40MG TABLET PO SCH (06:34)
[2017-09-28] MEDS: INSULIN -REGULAR HUMAN 50 UNIT/0.5 ML ML SQ SCH ×2 (07:30→11:30)
[2017-09-28] MEDS: CEFTRIAXONE/SWI 1gm 1 GM/10 ML SYR IV SCH (10:38)
[2017-09-28] MEDS: LISINOPRIL 5 MG TAB PO SCH (10:40)
[2017-09-28] MEDS: METOPROLOL XL 50 MG TAB PO SCH (10:41)
[2017-09-28] MEDS: CETIRIZINE HCL 5 MG TABLET PO SCH (10:42)
[2017-09-28] MEDS: ASCORBIC ACID 500 MG TABLET PO SCH (10:42)
[2017-09-28] MEDS: ASPIRIN 81 MG CHEWABLE TABLET PO SCH (10:43)
[2017-09-28] MEDS: CYANOCOBALAMIN 1,000 MCG TAB PO SCH (10:43)
[2017-09-28 13:26] VITALS: BP 110/63; TEMP 97.1
--- NOTE | 2017-09-28 13:47 | P.DS ---
Admission Date: 09/25/17 Discharge Date: 09/28/17 Primary Care Provider: Dr. Christine([place], [place]); [facility] Disposition: ROUTINE DISCHARGE Discharge Condition: GOOD Reason for Admission: AMS - Problems (1) Toxic encephalopathy Onset Date: 09/27/17 Current Visit: Yes Status: Acute (2) UTI (urinary tract infection) Onset Date: 09/27/17 Current Visit: Yes Status: Acute Qualifiers: Urinary tract infection type: acute cystitis Hematuria presence: without hematuria Qualified Code(s): N30.00 - Acute cystitis without hematuria (3) CAD (coronary artery disease) Onset Date: 01/19/17 Current Visit: No Status: Chronic Qualifiers: Coronary Disease-Associated Artery/Lesion type: [place] artery [place] vs. transplanted heart: [place] heart Associated angina: without angina Qualified Code(s): I25.10 - Atherosclerotic heart disease of [place] coronary artery without angina pectoris (4) Diabetes mellitus Onset Date: 01/19/17 Current Visit: No Status: Chronic Qualifiers: Diabetes mellitus type: type 2 Diabetes mellitus half-way insulin use: without termination clerk use Diabetes mellitus complication status: without complication Qualified Code(s): E11.9 - Type 2 diabetes mellitus without complications (5) HTN (hypertension) Onset Date: 01/19/17 Current Visit: No Status: Chronic Qualifiers: Hypertension type: essential hypertension (6) BPH (benign prostatic hyperplasia) Current Visit: Yes Status: Chronic Qualifiers: Lower urinary tract symptom presence: unspecified whether lower urinary tract symptoms present Qualified Code(s): N40.0 - Benign prostatic hyperplasia without lower urinary tract symptoms (7) Hyperlipidemia Current Visit: Yes Status: Chronic Qualifiers: Hyperlipidemia type: unspecified Qualified Code(s): E78.5 - Hyperlipidemia , unspecified Brief History of Present Illness: 82-year-old male presented emergency room with altered mental status and increased fatigue. Patient found to have a UTI. Patient was admitted for treatment. Hospital Course: During the course of his stay the patient was treated for UTI. Patient responded well to medical therapy. Urine culture was positive for E coli. At discharge patient will continue with Bactrim DS 1 pill twice daily for 7 days. Recommendation on UTI prevention will need to be enforced. Patient has hypertension. Patient will continue with his medication including lisinopril 2.5 mg daily. Recommendation is to maintain blood pressures less 150 /80. Further adjust can be done by his PCP. Patient has Hyperlipidemia. He may continue with his medication-Niacin. Patient has BPH. He may continue with Flomax 0.8mg daily. Patient has DM. He may continue with Metformin 1000 mg one pill twice daily. Recommendation for BS less than 140 fasting and less than 200 after meals. Further adjustment can be done by his PCP. Fall precautions addressed. Patient may need PT as an outpatient. This can be done with the help of his PCP. Vital Signs/Physical Exam: Temp Pulse Resp BP Pulse Ox 97.1 F 76 20 110/63 95 09/28/17 12:00 09/28/17 12:00 09/28/17 12:00 09/28/17 12:00 09/28/17 12:00 General: Alert, In no apparent distress, Oriented x3, Cooperative HEENT: Atraumatic Neck: Supple Respiratory: Clear to auscultation bilaterally, Normal air movement Cardiovascular: Normal pulses, Regular rate/rhythm Gastrointestinal: Normal bowel sounds, Soft and benign, Non-distended, No tenderness, No masses, No rebound, No guarding Musculoskeletal: No erythema, No tenderness, No warmth Integumentary: No tenderness/swelling, No erythema, No warmth, No cyanosis Neurological: Normal speech, Normal strength at 5/5 x4 extr, Normal tone Laboratory Data at Discharge: WBC 4.9 K/uL (4.3-10.9) 09/28/17 05:21 Hgb 12.0 g/dL (13.6-17.9) L 09/28/17 05:21 Hct 35.5 % (39.6-49.0) L 09/28/17 05:21 Plt Count 240 K/uL (152-406) D 09/28/17 05:21 Sodium 141 mmol/L (136-145) 09/28/17 05:21 Potassium 4.0 mmol/L (3.5-5.1) 09/28/17 05:21 BUN 14 mg/dL (7-18) 09/28/17 05:21 Creatinine 0.90 mg/dL (0.55-1.3) 09/28/17 05:21 Glucose 139 mg/dL (74-106) H 09/28/17 05:21 Phosphorus 2.8 mg/dL (2.5-4.9) 09/26/17 06:02 Magnesium 1.9 mg/dL (1.8-2.4) 09/28/17 05:21 Total Bilirubin 0.3 mg/dL (0.2-1.0) 09/28/17 05:21 AST 15 U/L (15-37) 09/28/17 05:21 ALT 24 U/L (12-78) 09/28/17 05:21 Alkaline Phosphatase 60 U/L (45-117) 09/28/17 05:21 Lipase 71 U/L (73-393) L 09/25/17 12:15 Home Medications: Aspirin 81 mg PO DAILY 12/13/12 Tamsulosin [Flomax*] 2 cap PO BEDTIME 12/13/12 Ascorbate Calcium [Vitamin C] 500 mg PO DAILY 01/19/17 Cetirizine HCl 10 mg PO DAILY 01/19/17 Cinnamon Bark [Cinnamon] 1,000 mg PO DAILY 01/19/17 Cyanocobalamin (Vitamin B-12) [Vitamin B-12] 1,000 mcg PO DAILY 01/19/17 Suri Root 550 mg PO DAILY 01/19/17 Green Tea [place] Extract [Green Tea] 315 mg PO DAILY 01/19/17 Krill/[place]-3/Dha/Epa/Lipids [[place]-3 Krill Oil 500 mg Sfgl] 1 cap PO DAILY Lisinopril [Zestril] 2.5 mg PO DAILY 01/19/17 Lutein 20 mg PO DAILY 01/19/17 Magnesium Oxide [Magnesium] 500 mg PO DAILY 01/19/17 Metformin HCl 1,000 mg PO BID 01/19/17 Metoprolol Succinate [Toprol Xl] 50 mg PO DAILY 01/19/17 Niacin 500 mg PO DAILY 01/19/17 Omeprazole [Prilosec] 40 mg PO DAILY 01/19/17 Prasterone (Dhea) [Dhea] 50 mg PO DAILY 01/19/17 Red Yeast Rice 1,200 mg PO DAILY 01/19/17 Turmeric Root Extract [Turmeric] 500 mg PO DAILY 01/19/17 Ubidecarenone [Ultra Coq10] 100 mg PO DAILY 01/19/17 Zinc 50 mg PO DAILY 01/19/17 [place] 250 mg PO DAILY 09/25/17 Sulfamethoxazole/Trimethoprim [Bactrim Ds Tablet] 1 each PO BID #14 tablet 09/28 New Medications: Sulfamethoxazole/Trimethoprim [Bactrim Ds Tablet] 1 each PO BID #14 tablet Patient Discharge Instructions: 1. Follow up with PCP in one week. 2. Patient found to have a UTI. Patient responded well to medical therapy. Urine culture was positive for E coli. At discharge patient will continue with Bactrim DS 1 pill twice daily for 7 days. Recommendation on UTI prevention will need to be enforced. 3. Patient has hypertension. Patient will continue with his medication including lisinopril 2.5 mg daily. Recommendation is to maintain blood pressures less 150/80. Further adjust can be done by his PCP. 4. Patient has Hyperlipidemia. He may continue with his medication-Niacin. 5. Patient has BPH. He may continue with Flomax 0.8mg daily. 6. Patient has DM. He may continue with Metformin 1000 mg one pill twice daily. Recommendation for BS less than 140 fasting and less than 200 after meals. Further adjustment can be done by his PCP. 7. Fall precautions addressed. Patient may need PT as an outpatient. This can be done with the help of his PCP. Diet: AHA Activity: Fall precautions Time spent managing pt's care (in minutes): 55
== END 2017-09-28 15:19 | disposition home health service (06) | DRG 689 ==
LOC: ER 11:55 → ERHOLD 14:59 → 4TH 15:49
PROVIDERS: ADMIT Family Medicine; ATTEND Family Medicine
DX: N30.00 Acute cystitis without hematuria (principal); G92 Toxic encephalopathy; E86.0 Dehydration; I10 Essential (primary) hypertension; E11.40 Type 2 diabetes mellitus with diabetic neuropathy, unspecified; I25.10 Atherosclerotic heart disease of native coronary artery without angina pectoris; K21.9 Gastro-esophageal reflux disease without esophagitis; N40.0 Benign prostatic hyperplasia without lower urinary tract symptoms; E78.5 Hyperlipidemia, unspecified; B96.20 Unspecified Escherichia coli [E. coli] as the cause of diseases classified elsewhere; R53.1 Weakness; I71.4 Abdominal aortic aneurysm, without rupture; Z79.82 Long term (current) use of aspirin; Z79.84 Long term (current) use of oral hypoglycemic drugs; Z74.01 Bed confinement status
CPT/HCPCS: 36415; 71045; 80048; 80053; 80076; 81003; 81015; 82962; 83605; 83690; 83735; 83880; 84100; 84145; 84484; 85025; 87040; 87077; 87086; 87088; 87186; 93005; 96361; 96365; 97163; 99285; J0696; J1650; J3475; J7030

== ENCOUNTER 2018-05-24 23:33 | Observation (INO) | payer OTHER ==
[2018-05-25 00:15] LABS: Absolute Monocytes 0.6 K/uL (0.1-1.3); Absolute Neutrophil 5.8 K/uL (1.8-8.0); Basophils % 0.7 % (0-1.3); Eosinophils % 2.7 % (0-4.4); Hematocrit 39.5 % (39.6-49.0); Lymphocytes % 12.5 % (15.3-44.8); MPV 8.9 fL (7.6-11.3); RBC Red Blood Cell Count 4.17 M/uL (4.33-5.43)
[2018-05-25 00:37] LABS: ALT/SGPT 24 U/L (12-78); AST/SGOT 12 U/L (15-37); Albumin 3.4 g/dL (3.4-5.0); Alkaline Phosphatase 103 U/L (45-117); BUN Blood Urea Nitrogen 21 mg/dL (7-18); Bicarbonate 27 mmol/L (21-32); Bilirubin Direct 0.2 mg/dL (0-0.2); Bilirubin Total 0.4 mg/dL (0.2-1.0); Glucose Level 165 mg/dL (74-106); Magnesium 1.9 mg/dL (1.8-2.4); NT PRO-BNP 170 pg/mL (<450); Potassium 4.5 mmol/L (3.5-5.1); Protein, Total 6.4 g/dL (6.4-8.2); Sodium Level 141 mmol/L (136-145); Troponin (Emerg Dept Use Only) < 0.02 ng/mL (0.0-0.045)
--- NOTE | 2018-05-25 01:50 | ER ---
Nurse's Notes [facility] Name: Selvin Florentino Age: 83 yrs Sex: Male : 1935 Arrival Date: 05/24/2018 Time: 23:38 Bed 4 Private MD: Diagnosis: Syncope and collapse;Hypotension, unspecified Presentation: 05/24 23:38 Presenting complaint: EMS states: pt with diarrhea [id number]. pt in restroom at home ak1 feeling weak, dizzy. FSBG 176. 500mL NS given in route. pt with gait belt on, ambulates with assistance at home. at bedside. Transition of care: patient was not received from another setting of care. Onset of symptoms was May 24, 2018. Risk Assessment: Do you want to hurt yourself or someone else? Patient reports no desire to harm self or others. Initial Sepsis Screen: Does the patient meet any 2 criteria? No. Patient's initial sepsis screen is negative. Does the patient have a suspected source of infection? No. Patient's initial sepsis screen is negative. Care prior to arrival: IV in place. 23:38 Method Of Arrival: EMS: [facility] ak1 23:38 Acuity: TRACI 3 ak1 Triage Assessment: 23:43 General: Appears ill, slender, Behavior is cooperative, quiet. Pain: Denies pain. EENT: ak1 No signs and/or symptoms were reported regarding the EENT system. Neuro: Level of Consciousness is awake, alert, obeys commands, Oriented to person, place, situation, Moves all extremities. Speech is normal. Cardiovascular: No deficits noted. Respiratory: No deficits noted. GI: Reports diarrhea. : Reports incontinence. Derm: No signs and/or symptoms reported regarding the dermatologic system. Musculoskeletal: Reports weakness in general weakness. Historical: - Allergies: 23:43 No Known Allergies; ak1 - Home Meds: 23:43 aspirin 81 mg Oral TbEC 1 tab once daily [Active]; cetirizine 10 mg Oral tab 1 tab once ak1 daily [Active]; lisinopril 2.5 mg Oral tab 1 tab once daily [Active]; metoprolol tartrate 100 mg oral tab 1 tab once daily [Active]; metformin 1,000 mg Oral tab 1 tab 2 times per day [Active]; tamsulosin 0.4 mg Oral cp24 2 caps once daily [Active]; atorvastatin 80 mg oral tab 1 tab once daily [Active]; 23:58 magnesium oral 500 mg daily oral [Active]; niacin 500 mg daily [Active]; omega-3 Srill bb oil 500 mg daily [Active]; Zinc 50 mg daily [Active]; ultra CoQ10 100 mg daily [Active]; Cinnamon oral 1000 mg daily oral [Active]; potassium 99 mg daily [Active]; Vitamin C 500 mg daily [Active]; B-12 1000 mcg daily [Active]; lutein 20 mg daily [Active]; DHEA 50 mg daily [Active]; Lemon grass 400 mg daily [Active]; turmeric curcumin 500 mg daily [Active]; bilberry 250 mg daily [Active]; garlic 1000 mg miller [Active]; Vit E 400 IU daily [Active]; Folic acid 800 mcg daily [Active]; L-Carnitine 500 mg Oral tab daily [Active]; - PMHx: 23:43 Diabetes - NIDDM; Hypertension; Urinary incontinence; neuropathy; ak1 - PSHx: 23:43 Hernia repair; Appendectomy; bunion; ak1 - Immunization history:: Adult Immunizations unknown. - Social history:: Smoking status: unknown. - Ebola Screening: : No symptoms or risks identified at this time. Screenin:45 Abuse screen: Denies threats or abuse. Denies injuries from another. Nutritional ak1 screening: No deficits noted. Tuberculosis screening: No symptoms or risk factors identified. Fall Risk IV access (20 points). Ambulatory Aid- None/Bed Rest/Nurse Assist (0 pts). Gait- Weak (10 pts.). Assessment: 23:46 General: Appears ill, slender, pale. Behavior is cooperative, quiet. ak1 05/25 01:21 Reassessment: Patient appears in no apparent distress at this time. Patient and/or ak1 family updated on plan of care and expected duration. Pain level reassessed. Patient is alert, oriented x 3, equal unlabored respirations, skin warm/dry/pink. Patient states feeling better. Patient states symptoms have improved. 02:23 Reassessment: Patient appears in no apparent distress at this time. No changes from ak1 previously documented assessment. Patient and/or family updated on plan of care and expected duration. Pain level reassessed. Patient is alert, oriented x 3, equal unlabored respirations, skin warm/dry/pink. Patient states symptoms have improved. Vital Signs: 05/24 23:43 BP 112 / 66; Pulse 57; Resp 16; Temp 97.7(A); Pulse Ox 99% on R/A; Weight 79.38 kg (R); ak1 Height 6 ft. 2 in. (187.96 cm) (R); Pain 0/10; 05/25 01:02 BP 105 / 57; Pulse 61; Resp 16; Temp 97.7; Pulse Ox 99% on R/A; ak1 01:20 BP 100 / 62; Pulse 59; Resp 14; Temp 97.9(A); Pulse Ox 100% on R/A; ak1 01:38 BP 84 / 55; Pulse 58; bb 02:23 BP 110 / 62; Pulse 66; Resp 20; Temp 97.6; Pulse Ox 99% on R/A; Pain 0/10; ak1 05/24 23:43 Body Mass Index 22.47 (79.38 kg, 187.96 cm) ak1 ED Course: 05/24 23:38 Patient arrived in ED. ak1 23:38 Des Seaman MD is Attending Physician. tw4 23:40 Triage completed. ak1 23:43 Arm band placed on Patient placed in an exam room, on a stretcher, on oxygen, on ak1 monitoring tech, on pulse oximetry, Patient notified of wait time. 23:45 Patient has correct armband on for positive identification. Placed in gown. Bed in low ak1 position. Call light in reach. Side rails up X2. Adult w/ patient. court recording monitor on. Pulse ox on. NIBP on. Door closed. Warm blanket given. 23:45 Maintain EMS IV. Dressing intact. Site clean \T\ dry. Gauge \T\ site: 20g left AC. ak 1 23:47 Maddie Lujan RN is Primary Nurse. ak1 23:53 X-ray completed. Portable x-ray completed in exam room. Patient tolerated procedure kw well. 23:54 XRAY Chest (1 view) In Process Unspecified. EDMS 05/25 01:48 Cristiana Pavon MD is Hospitalizing Provider. tw4 02:24 No provider procedures requiring assistance completed. Straight cath inserted, using ak1 sterile technique, 16 Fr. Specimen obtained. Patient admitted, IV remains in place. Administered Medications: :49 Drug: NS 0.9% 1000 ml Route: IV; Rate: 1 bolus; Site: left antecubital; bb 03:40 Follow up: IV Status: Completed infusion ak1 Outcome: :49 Decision to Hospitalize by Provider. tw4 02:25 Admitted to Med/surg accompanied by nurse, via wheelchair, room 214, with oxygen, with ak1 chart. 02:25 Condition: good 02:25 Instructed on the need for admit. 03:40 Patient left the ED. ak1 Signatures: Dispatcher [employer] EDMS Kayce Mora, RN RN Saskia Geronimo Amber, RN RN ak1 Des Seaman MD MD tw4
--- NOTE | 2018-05-25 01:50 | EDPHYS ---
Physician Documentation [facility] Name: Selvin Florentino Age: 83 yrs Sex: Male : 1935 Arrival Date: 05/24/2018 Time: 23:38 Bed 4 Private MD: ED Physician Des Seaman HPI: 05/25 01:21 This 83 yrs old Male presents to ER via EMS with complaints of General tw4 Weakness, Diarrhea. 01:21 The patient presents to the emergency department with nausea, vomiting, diarrhea. tw4 Onset: The symptoms/episode began/occurred today. Possible causes: unknown. The symptoms are aggravated by nothing. The symptoms are alleviated by nothing. Associated signs and symptoms: The patient has no apparent associated signs or symptoms. Severity of symptoms: At their worst the symptoms were moderate in the emergency department the symptoms are unchanged. The patient has not experienced similar symptoms in the past. Historical: - Allergies: 05/24 23:43 No Known Allergies; ak1 - Home Meds: 23:43 aspirin 81 mg Oral TbEC 1 tab once daily [Active]; cetirizine 10 mg Oral tab 1 tab once ak1 daily [Active]; lisinopril 2.5 mg Oral tab 1 tab once daily [Active]; metoprolol tartrate 100 mg oral tab 1 tab once daily [Active]; metformin 1,000 mg Oral tab 1 tab 2 times per day [Active]; tamsulosin 0.4 mg Oral cp24 2 caps once daily [Active]; atorvastatin 80 mg oral tab 1 tab once daily [Active]; 23:58 magnesium oral 500 mg daily oral [Active]; niacin 500 mg daily [Active]; omega-3 Srill bb oil 500 mg daily [Active]; Zinc 50 mg daily [Active]; ultra CoQ10 100 mg daily [Active]; Cinnamon oral 1000 mg daily oral [Active]; potassium 99 mg daily [Active]; Vitamin C 500 mg daily [Active]; B-12 1000 mcg daily [Active]; lutein 20 mg daily [Active]; DHEA 50 mg daily [Active]; Lemon grass 400 mg daily [Active]; turmeric curcumin 500 mg daily [Active]; bilberry 250 mg daily [Active]; garlic 1000 mg miller [Active]; Vit E 400 IU daily [Active]; Folic acid 800 mcg daily [Active]; L-Carnitine 500 mg Oral tab daily [Active]; - PMHx: 23:43 Diabetes - NIDDM; Hypertension; Urinary incontinence; neuropathy; ak1 - PSHx: 23:43 Hernia repair; Appendectomy; bunion; ak1 - Immunization history:: Adult Immunizations unknown. - Social history:: Smoking status: unknown. - Ebola Screening: : No symptoms or risks identified at this time. ROS: 05/25 01:21 Constitutional: Negative for fever, chills, and weight loss, Eyes: Negative for injury, tw4 pain, redness, and discharge, Cardiovascular: Negative for chest pain, palpitations, and edema, Respiratory: Negative for shortness of breath, cough, wheezing, and pleuritic chest pain, Abdomen/GI: Negative for abdominal pain, nausea, vomiting, diarrhea, and constipation, Back: Negative for injury and pain, MS/Extremity: Negative for injury and deformity, Skin: Negative for injury, rash, and discoloration. Exam: 01:21 Constitutional: This is a well developed, well nourished patient who is awake, alert, tw4 and in no acute distress. Head/Face: Normocephalic, atraumatic. Chest/axilla: Normal chest wall appearance and motion. Nontender with no deformity. No lesions are appreciated. Cardiovascular: Regular rate and rhythm with a normal S1 and S2. No gallops, murmurs, or rubs. Normal PMI, no JVD. No pulse deficits. Respiratory: Lungs have equal breath sounds bilaterally, clear to auscultation and percussion. No rales, rhonchi or wheezes noted. No increased work of breathing, no retractions or nasal flaring. Abdomen/GI: Soft, non-tender, with normal bowel sounds. No distension or tympany. No guarding or rebound. No evidence of tenderness throughout. Back: No spinal tenderness. No costovertebral tenderness. Full range of motion. MS/ Extremity: Pulses equal, no cyanosis. Neurovascular intact. Full, normal range of motion. Neuro: Awake and alert, GCS 15, oriented to person, place, time, and situation. Cranial nerves II-XII grossly intact. Motor strength 5/5 in all extremities. Sensory grossly intact. Cerebellar exam normal. Normal gait. Vital Signs: 05/24 23:43 BP 112 / 66; Pulse 57; Resp 16; Temp 97.7(A); Pulse Ox 99% on R/A; Weight 79.38 kg (R); ak1 Height 6 ft. 2 in. (187.96 cm) (R); Pain 0/10; 05/25 01:02 BP 105 / 57; Pulse 61; Resp 16; Temp 97.7; Pulse Ox 99% on R/A; ak1 01:20 BP 100 / 62; Pulse 59; Resp 14; Temp 97.9(A); Pulse Ox 100% on R/A; ak1 01:38 BP 84 / 55; Pulse 58; bb 02:23 BP 110 / 62; Pulse 66; Resp 20; Temp 97.6; Pulse Ox 99% on R/A; Pain 0/10; ak1 05/24 23:43 Body Mass Index 22.47 (79.38 kg, 187.96 cm) ak MDM: 05/24 23:44 Patient medically screened. 4 05/25 01:21 Differential diagnosis: Nonspecific abd pain, gastritis. Data reviewed: vital signs, tw4 nurses notes. Data interpreted: Pulse oximetry: Interpretation:. Counseling: I had a detailed discussion with the patient and/or guardian regarding: the historical points, exam findings, and any diagnostic results supporting the discharge/admit diagnosis, lab results, radiology results. 05/24 23:39 Order name: Basic Metabolic Panel; Complete Time: 01:31 [facility] 05/24 23:39 Order name: CBC with Diff; Complete Time: 01:32 [facility] 05/24 23:39 Order name: LFT's [facility] 05/24 23:39 Order name: Magnesium tw 05/24 23:39 Order name: NT PRO-BNP [facility] 05/24 23:39 Order name: PT-INR [facility] 05/24 23:39 Order name: Troponin (emerg Dept Use Only) [facility] 05/24 23:39 Order name: XRAY Chest (1 view) [facility] 05/24 23:39 Order name: EKG; Complete Time: 23:40 tw 05/24 23:39 Order name: Cardiac monitoring; Complete Time: 23:47 [facility] 05/25 01:45 Order name: Urinalysis EDMS 05/25 02:23 Order name: Urine Dipstick--Ancillary (enter results) 2 05/25 02:30 Order name: Urine Dipstick-Ancillary EDNY 05/24 23:39 Order name: EKG - Nurse/Tech; Complete Time: 00:03 tw4 05/24 23:39 Order name: IV Saline Lock; Complete Time: 23:47 tw4 05/24 23:39 Order name: Labs collected and sent; Complete Time: 00:03 tw4 05/24 23:39 Order name: O2 Per Protocol; Complete Time: 23:47 tw4 05/24 23:39 Order name: O2 Sat Monitoring; Complete Time: 23:47 tw4 EC: Rate is 55 beats/min. Rhythm is regular, 1st Degree Block with Right bundle branch tw4 block. QRS Ackerly is Normal. QRS interval is normal. QT interval is normal. No Q waves. T waves are Normal. No ST changes noted. Clinical impression: 1st degree heart block. Interpreted by me. Reviewed by me. Administered Medications: 01:49 Drug: NS 0.9% 1000 ml Route: IV; Rate: 1 bolus; Site: left antecubital; wayne 03:40 Follow up: IV Status: Completed infusion ak1 Disposition: 05/25/18 01:49 Hospitalization ordered by Cristiana Pavon for Observation. Preliminary diagnosis are Syncope and collapse, Hypotension, unspecified. - Bed requested for Telemetry/MedSurg (observation). - Status is Observation. ak1 - Condition is Stable. - Problem is new. - Symptoms are unchanged. UTI on Admission? No Signatures: Dispatcher [employer] EDNY Arlet Carbone RN RN mw Ballard, Brenda RN Maddie Argueta RN RN ak1 Des Seaman MD MD tw4 Corrections: (The following items were deleted from the chart) 02:05 01:49 Hospitalization Ordered by Cristiana Pavon MD for Observation. Preliminary mw diagnosis is Syncope and collapse; Hypotension, unspecified. Bed requested for Telemetry/MedSurg (observation). Status is Observation. Condition is Stable. Problem is new. Symptoms are unchanged. UTI on Admission? No. tw4 03:40 02:05 05/25/2018 01:49 Hospitalization Ordered by Cristiana Pavon MD for Observation. ak1 Preliminary diagnosis is Syncope and collapse; Hypotension, unspecified. Bed requested for Telemetry/MedSurg (observation). Status is Observation. Condition is Stable. Problem is new. Symptoms are unchanged. UTI on Admission? No. mw
[2018-05-25] MEDS ORDERED: NA CHLORIDE 0.9% 1,000 ML ONE (01:51)
--- NOTE | 2018-05-25 02:01 | P.HP ---
Certification for Inpatient Patient admitted to: Inpatient With expected LOS: >2 Midnights Practitioner: I am a practitioner with admitting privileges, knowledge of patient current condition, hospital course, and medical plan of care. Services: Services provided to patient in accordance with Admission requirements found in Title 42 Section 412.3 of the Code of Federal Regulations Patient History Date of Service: 05/25/18 Reason for admission: pre-syncope, volume depleteion, hypotension History of Present Illness: Mr Florentino is an 83 years old male with history of DM II, hypertension, urinary incontinence, neuropathy, who start this morning with diarrhea. He had 2 episodes of diarrhea. His gave him Imodium, subsequently diarrhea stop. Then, the patient went to the restroom again, and he become pale, weak, unable to stand up from the toilette, never loss his conscious. His then called 911. When EMS arrived found the patient hypotensive. No history of fever or chills. No abdominal pain, nausea or vomiting. Wild Life Photographer started an IV and transferred the patient to ER. At arrival his BP was 112/66. Subsequent BP readings were lower, 74/50's. O2 sat was 99% on RA, he denied chest pain or SOB. Allergies No Known Allergies Allergy (Unverified 01/19/17 07:00) Home medications list reviewed: Yes Home Medications: Aspirin 81 mg PO DAILY 12/13/12 Tamsulosin [Flomax*] 2 cap PO BEDTIME 12/13/12 Ascorbate Calcium [Vitamin C] 500 mg PO DAILY 01/19/17 Cetirizine HCl 10 mg PO DAILY 01/19/17 Cinnamon Bark [Cinnamon] 1,000 mg PO DAILY 01/19/17 Cyanocobalamin (Vitamin B-12) [Vitamin B-12] 1,000 mcg PO DAILY 01/19/17 Suri Root 550 mg PO DAILY 01/19/17 Green Tea Glasco Extract [Green Tea] 315 mg PO DAILY 01/19/17 Krill/Hickory-3/Dha/Epa/Lipids [Hickory-3 Krill Oil 500 mg Sfgl] 1 cap PO DAILY Lisinopril [Zestril] 2.5 mg PO DAILY 01/19/17 Lutein 20 mg PO DAILY 01/19/17 Magnesium Oxide [Magnesium] 500 mg PO DAILY 01/19/17 Metformin HCl 1,000 mg PO BID 01/19/17 Metoprolol Succinate [Toprol Xl] 50 mg PO DAILY 01/19/17 Niacin 500 mg PO DAILY 01/19/17 Omeprazole [Prilosec] 40 mg PO DAILY 01/19/17 Prasterone (Dhea) [Dhea] 50 mg PO DAILY 01/19/17 Red Yeast Rice 1,200 mg PO DAILY 01/19/17 Turmeric Root Extract [Turmeric] 500 mg PO DAILY 01/19/17 Ubidecarenone [Ultra Coq10] 100 mg PO DAILY 01/19/17 Zinc 50 mg PO DAILY 01/19/17 Bilberry 250 mg PO DAILY 09/25/17 Sulfamethoxazole/Trimethoprim [Bactrim Ds Tablet] 1 each PO BID #14 tablet 09/28 - Past Medical/Surgical History Diabetic: Yes -: diabetes -: high cholesterol -: GERD -: HTN -: pneumonia -: Inguinal hernia -: Aortic Stent -: Hernia repair -: appendectomy -: Cholecystectomy - Family History Father -: Hypertension, Diabetes - Social History Smoking Status: Former smoker Alcohol use: No CD- Drugs: No Caffeine use: No Place of Residence: Home Review of Systems 10-point ROS is otherwise unremarkable Physical Examination - Physical Exam General: Alert, In no apparent distress HEENT: Atraumatic, PERRLA, Mucous membr. moist/pink, EOMI, Sclerae nonicteric Neck: Supple, 2+ carotid pulse no bruit, No LAD, Without JVD or thyroid abnormality Respiratory: Clear to auscultation bilaterally, Normal air movement Cardiovascular: Normal S1 S2, No gallops Gastrointestinal: Normal bowel sounds, No tenderness Musculoskeletal: No tenderness Integumentary: No rashes Neurological: Normal speech, Normal strength at 5/5 x4 extr, Normal tone, Normal affect Lymphatics: No axilla or inguinal lymphadenopathy - Studies Laboratory Data (last 24 hrs) 05/24/18 23:59: PT 11.8, INR 1.00 05/24/18 23:59: WBC 7.7, Hgb 13.1 L, Hct 39.5 L, Plt Count 181 05/24/18 23:59: Sodium 141, Potassium 4.5, BUN 21 H, Creatinine 1.17, Glucose 165 H, Magnesium 1.9, Total Bilirubin 0.4, AST 12 L, ALT 24, Alkaline Phosphatase 103 Assessment and Plan - Problems (Diagnosis) (1) Pre-syncope Current Visit: Yes Status: Acute (2) Acute renal injury Current Visit: Yes Status: Acute (3) Volume depletion Current Visit: Yes Status: Acute (4) Diabetes mellitus Onset Date: 01/19/17 Current Visit: No Status: Chronic Qualifiers: Diabetes mellitus type: type 2 Diabetes mellitus residential insulin use: without termite control service representative use Diabetes mellitus complication status: without complication Qualified Code(s): E11.9 - Type 2 diabetes mellitus without complications (5) Generalized weakness Onset Date: 09/27/17 Current Visit: No Status: Chronic - Plan Will admit the patient to the hospital due to pre-syncopal episode in context of hypotension due to volume depletion. Perhaps underlying infection as precipitant, however, no obvious source so far. Awaiting UA. WKG shows no acute changes on ST-T. Will continue aggressive volume replacement. - Advance Directives Does patient have a Living Will: No Does patient have a Durable POA for Healthcare: Yes - Code Status/Comfort Care Code Status Assessed: Yes Code Status: Full Code
[2018-05-25 02:30] LABS: Urine Blood NEGATIVE (NEG); Urine Glucose NEGATIVE (NEG); Urine Protein TRACE (NEG); Urine Specific Gravity >1.030 (1.005-1.030); Urine pH 5.5 (5.0-7.0)
[2018-05-25 03:09] VITALS: BMI 22.4
[2018-05-25 04:01] LABS: Urine Appearance CLEAR; Urine Bilirubin NEGATIVE (NEG); Urine Blood NEGATIVE (NEG); Urine Color YELLOW; Urine Glucose NEGATIVE (NEG); Urine Protein NEGATIVE (NEG); Urine Urobilinogen 0.2 mg/dL (0.2-1.0); Urine pH 5.5 (5.0-7.0)
[2018-05-25] MEDS ORDERED: ONDANSETRON 4 MG/2 ML VIAL IV PRN (04:10)
[2018-05-25] MEDS ORDERED: NA CHLORIDE 0.9% 1,000 ML IV SCH (04:10)
[2018-05-25 04:26] LABS: Urine Microscopic Reflex ORDER UMIC
[2018-05-25 05:10] LABS: Urine Bacteria >50 /HPF (NONE SEEN); Urine Culture Reflex Order REFLEXED; Urine RBC NONE SEEN /HPF (NONE SEEN)
[2018-05-25 05:11] LABS: Urine Mucus MOD /HPF (NONE SEEN)
[2018-05-25 06:39] LABS: Absolute Lymphocytes (CBC) 0.8 K/uL (0.7-4.9); Absolute Monocytes 0.5 K/uL (0.1-1.3); Basophils % 0.4 % (0-1.3); Eosinophils % 1.1 % (0-4.4); Hematocrit 35.6 % (39.6-49.0); Lymphocytes % 11.8 % (15.3-44.8); MPV 9.5 fL (7.6-11.3); Monocytes % 7.7 % (3.3-12.3); RBC Red Blood Cell Count 3.76 M/uL (4.33-5.43)
[2018-05-25 06:56] LABS: Potassium 4.3 mmol/L (3.5-5.1)
[2018-05-25] MEDS: INSULIN -REGULAR HUMAN 50 UNIT/0.5 ML ML SQ SCH ×3 (07:30→16:30)
--- NOTE | 2018-05-25 07:41 | EKG ---
Test Date: 2018-05-24 Test Time: 23:43:33 Electroplating Worker: AER MEASUREMENT RESULTS: Intervals: Rate: 55 WA: 304 QRSD: 120 QT: 470 QTc: 449 [place]: P: 82 WA: 304 QRS: -34 T: 12 INTERPRETIVE STATEMENTS: Sinus bradycardia with 1st degree AV block with premature atrial complexes Left axis deviation Right bundle branch block Abnormal ECG Compared to ECG 09/25/2017 12:03:33 First degree AV block now present Sinus rhythm no longer present Myocardial infarct finding no longer present Electronically Signed On 05-25-18 07:40:36 CDT by Forrest Zayas
[2018-05-25] MEDS: NA CHLORIDE 0.9% 1,000 ML IV SCH ×2 (08:00→16:48)
--- NOTE | 2018-05-25 08:32 | RAD REPORT ---
EXAM DESCRIPTION: [place] Single View05/24/2018 11:56 pm CLINICAL HISTORY: Chest pain COMPARISON: September 2017 FINDINGS: Left basilar opacities are unchanged consistent with scarring The lungs appear clear of acute infiltrate. The heart is borderline enlarged IMPRESSION: No acute abnormalities displayed
[2018-05-25] MEDS ORDERED: GARLIC 1000 MG PO SCH (09:00)
[2018-05-25] MEDS ORDERED: FOLIC ACID 1 MG TABLET PO SCH (09:00)
[2018-05-25] MEDS ORDERED: ASPIRIN 81 MG CHEWABLE TABLET PO SCH (09:00)
[2018-05-25] MEDS ORDERED: LMEFOLATE CA PO SCH (09:00)
[2018-05-25] MEDS ORDERED: ASCORB SOD PO SCH (09:00)
[2018-05-25] MEDS ORDERED: VIT C PO SCH (09:00)
[2018-05-25] MEDS ORDERED: NIACIN 500 MG SR TAB PO SCH (09:00)
[2018-05-25] MEDS ORDERED: VIT B6 PO SCH (09:00)
[2018-05-25] MEDS ORDERED: B2 PO SCH (09:00)
[2018-05-25] MEDS ORDERED: CALCIUM CARB PO SCH (09:00)
[2018-05-25] MEDS ORDERED: ZINC SULFATE 220 MG CAP PO SCH (09:00)
[2018-05-25] MEDS ORDERED: CINNAMON BARK 1000 MG PO SCH (09:00)
[2018-05-25] MEDS ORDERED: VITAMIN E 400 IU CAP PO SCH (09:00)
[2018-05-25] MEDS ORDERED: MULTIVIT MIN PO SCH (09:00)
[2018-05-25] MEDS ORDERED: PRASTERONE PO SCH (09:00)
[2018-05-25] MEDS ORDERED: [UNRECOGNIZED DRUG - OTHER] PO SCH (09:00)
[2018-05-25] MEDS ORDERED: TAMSULOSIN 0.4 MG SR CAP PO SCH (09:00)
[2018-05-25] MEDS ORDERED: ENOXAPARIN 40 MG/0.4 ML SQ SCH (09:00)
[2018-05-25] MEDS ORDERED: VIT B12 PO SCH (09:00)
[2018-05-25] MEDS ORDERED: MAGNESIUM OXIDE 400 MG TAB PO SCH (09:00)
[2018-05-25] MEDS ORDERED: UBIDECARENONE 100 MG PO SCH (09:00)
[2018-05-25] MEDS ORDERED: CETIRIZINE HCL 5 MG TABLET PO SCH (09:00)
[2018-05-25] MEDS ORDERED: HOME MED 1 EA UNK (Omega-3/Dha/Epa/Fish Oil [Omega 3 500 Softgel] 1 CAP) PO SCH (09:00)
--- NOTE | 2018-05-25 09:40 | P.PN ---
Subjective Date of Service: 05/25/18 Chief Complaint: pre-syncope, volume depleteion, hypotension Subjective: Improving (Patient appears improved. Patient sitting waiting for breakfast.) Physical Examination - Vital Signs Temperature: 97.6 F Blood Pressure: 100/55 Pulse: 64 Respirations: 16 Pulse Ox (%): 95 - Physical Exam General: Alert, In no apparent distress, Oriented x3, Cooperative HEENT: Atraumatic Neck: Supple Respiratory: Clear to auscultation bilaterally, Normal air movement Cardiovascular: Normal pulses, Regular rate/rhythm Gastrointestinal: Normal bowel sounds, Soft and benign, Non-distended, No tenderness, No masses, No rebound, No guarding Musculoskeletal: No erythema, No tenderness, No warmth Integumentary: No tenderness/swelling, No erythema, No warmth, No cyanosis Neurological: Normal speech, Normal strength at 5/5 x4 extr, Normal tone, Normal affect - Studies Laboratory Data (last 24 hrs) 05/24/18 23:59: PT 11.8, INR 1.00 05/24/18 23:59: WBC 7.7, Hgb 13.1 L, Hct 39.5 L, Plt Count 181 05/24/18 23:59: Sodium 141, Potassium 4.5, BUN 21 H, Creatinine 1.17, Glucose 165 H, Magnesium 1.9, Total Bilirubin 0.4, AST 12 L, ALT 24, Alkaline Phosphatase 103 Medications List Reviewed: Yes Assessment & Plan Discharge Plan: Home Plan to discharge in: 24 Hours Physician Review Additional Text: Impression: Acute renal injury likely from dehydration and recent diarrhea Hypertension Diabetes mellitus type 2 BPH Hyperlipidemia Plan: Acute renal injury likely from dehydration and recent diarrhea: Blood pressure improved. Continue to hold blood pressure medication at this time. Continue IV fluids. No more diarrhea noted. Lab work shows improvement. Will have physical therapy assess ambulation. If taking good oral intake will stop IV fluids today. Anticipate discharge in the next 24 hr. Patient may require home health at discharge. Hypertension: Patient takes metoprolol and lisinopril at home. Will continue to hold medication due to dehydration and low blood pressure. Diabetes mellitus type 2: Continue sliding scale. BPH: Continue home medication. Hyperlipidemia: Continue home medication. Time Spent Managing Pts Care (In Minutes): 55
[2018-05-25 13:10] VITALS: TEMP 99.1
[2018-05-25 13:13] VITALS: O2SAT 96
--- NOTE | 2018-05-25 16:02 | P.DS ---
Admission Date: 05/25/18 Discharge Date: 05/25/18 Primary Care Provider: unknown Disposition: DC HOME/HOME HEALTH CARE Discharge Condition: GOOD Reason for Admission: pre-syncope, volume depleteion, hypotension Consultations: None Procedures: Medical problem list: Acute renal injury likely from dehydration and recent diarrhea Hypertension Diabetes mellitus type 2 BPH Hyperlipidemia Brief History of Present Illness: 83-year-old male presented to emergency room with dehydration and recent diarrhea. Patient was evaluated and found to have low blood pressure. Patient was admitted for treatment. Hospital Course: Patient presented with acute renal injury likely from dehydration and recent diarrhea. Patient given IV fluids. No more diarrhea noted. Lab shows improvement. At discharge patient will continue back home. Physical therapy did evaluate the patient. Will recommend home health and physical therapy at discharge. Will help arrange. This was discussed with who takes care of him. Patient with underlying hypertension, diabetes, BPH and hyperlipidemia. Patient may continue his current medication. Recommend to follow up with his PCP in 1 week to follow up this hospitalization. Recommend to monitor blood pressures closely. Blood pressure medication may need to be held if blood pressure systolic less than 120. Vital Signs/Physical Exam: Temp Pulse Resp BP Pulse Ox 99.1 F 73 18 160/85 H 97 05/25/18 12:00 05/25/18 12:00 05/25/18 12:00 05/25/18 12:00 05/25/18 12:00 General: Alert, In no apparent distress, Oriented x3, Cooperative HEENT: Atraumatic Neck: Supple Respiratory: Clear to auscultation bilaterally, Normal air movement Cardiovascular: Normal pulses, Regular rate/rhythm Gastrointestinal: Normal bowel sounds, Soft and benign, Non-distended Musculoskeletal: No erythema, No tenderness, No warmth Integumentary: No tenderness/swelling, No erythema, No warmth, No cyanosis Neurological: Normal speech, Normal strength at 5/5 x4 extr, Normal tone, Normal affect Laboratory Data at Discharge: WBC 6.4 K/uL (4.3-10.9) D 05/25/18 05:37 Hgb 11.7 g/dL (13.6-17.9) L 05/25/18 05:37 Hct 35.6 % (39.6-49.0) L 05/25/18 05:37 Plt Count 185 K/uL (152-406) 05/25/18 05:37 PT 11.8 SECONDS (9.5-12.5) 05/24/18 23:59 INR 1.00 05/24/18 23:59 Sodium 142 mmol/L (136-145) 05/25/18 05:37 Potassium 4.3 mmol/L (3.5-5.1) 05/25/18 05:37 BUN 20 mg/dL (7-18) H 05/25/18 05:37 Creatinine 0.86 mg/dL (0.55-1.3) 05/25/18 05:37 Glucose 144 mg/dL (74-106) H 05/25/18 05:37 Magnesium 1.9 mg/dL (1.8-2.4) 05/24/18 23:59 Total Bilirubin 0.4 mg/dL (0.2-1.0) 05/24/18 23:59 AST 12 U/L (15-37) L 05/24/18 23:59 ALT 24 U/L (12-78) 05/24/18 23:59 Alkaline Phosphatase 103 U/L (45-117) 05/24/18 23:59 Home Medications: Acetylcarnitine [Acetyl l-Carnitine] 500 mg PO DAILY 05/25/18 Aspirin 81 mg PO DAILY 05/25/18 Atorvastatin Calcium [Lipitor] 80 mg PO DAILY 05/25/18 Bilberry 250 mg PO DAILY 05/25/18 Cetirizine HCl 10 mg PO DAILY 05/25/18 Cinnamon Bark [Cinnamon] 1,000 mg PO DAILY 05/25/18 Folic Acid 800 mcg PO DAILY 05/25/18 Garlic 1,000 mg PO DAILY 05/25/18 Lemon Grass 400 mg PO DAILY 05/25/18 Lisinopril [Zestril] 2.5 mg PO DAILY 05/25/18 Lutein 20 mg PO DAILY 05/25/18 Magnesium Oxide [Magnesium] 500 mg PO DAILY 05/25/18 Metformin HCl [Metformin ER Gastric] 1,000 mg PO DAILY 05/25/18 Metoprolol Succinate [Toprol Xl] 100 mg PO DAILY 05/25/18 Niacin [Niacin ER] 500 mg PO DAILY 05/25/18 [place]-3/Dha/Epa/Fish Oil [[place] 3 500 Softgel] 1 cap PO DAILY 05/25/18 Prasterone (Dhea)/Calcium Carb [Dhea 50 mg Tablet] 1 tab PO DAILY 05/25/18 Tamsulosin [Flomax*] 0.4 mg PO BID 05/25/18 Turmeric Root Extract [Turmeric] 500 mg PO DAILY 05/25/18 Ubidecarenone [Ultra Coq10] 100 mg PO DAILY 05/25/18 Vit B12/Lmefolate Ca/Vit B6/B2 [Metafolbic Tablet] 1 tab PO DAILY 05/25/18 Vit C/Ascorb Sod/Multivit-Min [Emergen-C 500 mg Chewable Tab] 500 mg PO DAILY Vitamin E [Vitamin E*] 400 iu PO DAILY 05/25/18 Zinc 50 mg PO DAILY 05/25/18 Patient Discharge Instructions: 1. Recommend to follow up with his PCP within 1 week to follow up this hospitalization. 2. Home health and physical therapy will be arranged prior to discharge. 3. Patient presented with acute renal injury likely from dehydration and recent diarrhea. Patient given IV fluids. No more diarrhea noted. Lab shows improvement. At discharge patient will continue back home. Physical therapy did evaluate the patient. Will recommend home health and physical therapy at discharge. Will help arrange. This was discussed with who takes care of him. Patient with underlying hypertension , diabetes, BPH and hyperlipidemia. Patient may continue his current medication. Recommend to follow up with his PCP in 1 week to follow up this hospitalization. 4. Recommend to monitor blood pressures closely. Blood pressure medication may need to be held if blood pressure systolic less than 120. Diet: AHA Activity: Fall precautions Time spent managing pt's care (in minutes): 55
[2018-05-25] MEDS ORDERED: HYDRALAZINE HCL 20 MG/ML VIAL IV ONE (17:00)
[2018-05-25 17:45] VITALS: BP 190/85
[2018-05-25] MEDS ORDERED: ATORVASTATIN 80 MG TAB PO SCH (21:00)
== END 2018-05-25 18:48 | disposition home health service (06) ==
LOC: ER 23:33 → INTOOBSV 05-25 02:00 → ERHOLD 05-25 02:00 → 2ND 05-25 03:19
PROVIDERS: ADMIT Internal Medicine; ATTEND Internal Medicine
DX: N17.9 Acute kidney failure, unspecified (principal); I10 Essential (primary) hypertension; E11.9 Type 2 diabetes mellitus without complications; N40.0 Benign prostatic hyperplasia without lower urinary tract symptoms; E78.5 Hyperlipidemia, unspecified
CPT/HCPCS: 36415; 51702; 71045; 80048; 80076; 81003; 81015; 82962; 83605; 83735; 83880; 84145; 84484; 85025; 85610; 87040; 87077; 87086; 87088; 87186; 93005; 94760; 96360; 96361; 97163; 99285; G0378; J0360; J1650; J7030

== ENCOUNTER 2019-04-24 00:31 | Inpatient (IN) | payer OTHER ==
[2019-04-24] MEDS ORDERED: NA CHLORIDE 0.9% 2,000 ML ONE (00:50)
[2019-04-24 01:05] LABS: Absolute Lymphocytes (CBC) 0.4 K/uL (0.7-4.9); Basophils % 0.5 % (0-1.3); Hematocrit 37.7 % (39.6-49.0); Lymphocytes % 5.6 % (15.3-44.8); RBC Red Blood Cell Count 3.98 M/uL (4.33-5.43)
[2019-04-24 01:08] LABS: Protime INR 0.98
[2019-04-24 01:21] LABS: ALT/SGPT 36 U/L (12-78); AST/SGOT 24 U/L (15-37); Albumin 3.4 g/dL (3.4-5.0); Alkaline Phosphatase 99 U/L (45-117); Amylase Level 52 U/L (25-115); BUN Blood Urea Nitrogen 16 mg/dL (7-18); Bicarbonate 24 mmol/L (21-32); Bilirubin Direct 0.2 mg/dL (0-0.2); Bilirubin Total 0.7 mg/dL (0.2-1.0); CKMB Creatine Kinase MB 1.1 ng/mL (0.3-3.6); Creatine Phosphokinase 59 U/L (39-308); Glucose Level 133 mg/dL (74-106); Lipase 201 U/L (73-393); Potassium 4.5 mmol/L (3.5-5.1); Protein, Total 6.5 g/dL (6.4-8.2); Sodium Level 140 mmol/L (136-145); Troponin (Emerg Dept Use Only) < 0.02 ng/mL (0.0-0.045)
[2019-04-24] MEDS ORDERED: CEFTRIAXONE/SWI 1gm 1 GM/10 ML SYR ONE (01:29)
--- NOTE | 2019-04-24 01:58 | ER ---
Nurse's Notes [facility] Name: Selvin Florentino Age: 84 yrs Sex: Male : 1935 Arrival Date: 04/24/2019 Time: 00:34 Bed 14 Private MD: Diagnosis: Cystitis, unspecified without hematuria;Sepsis due to other Gram-negative organisms;Altered mental status, unspecified Presentation: 04/24 00:40 Presenting complaint: EMS states: we were called for a patient as per the caregiver, rr5 started yesterday complaining of shaky movement both legs and feet. normally only his arms is shaking. he feels nauseous and no BM for 7 days. he become more sleepy than usual. 00:40 Transition of care: patient was not received from another setting of care. Onset of rr5 symptoms was April 23, 2019. Risk Assessment: Do you want to hurt yourself or someone else? Patient reports no desire to harm self or others. Initial Sepsis Screen: Does the patient meet any 2 criteria? RR > 20 per min. Altered Mental Status. Yes Does the patient have a suspected source of infection? Yes: Productive cough/pneumonia Other: decrease LOC If YES to both, name of provider notified: Adrienne Avila MD. Care prior to arrival: Medication(s) given: Normal saline infusion, zofran 4 mg. 00:40 Method Of Arrival: EMS: [facility] rr5 00:40 Acuity: TRACI 2 rr5 Historical: - Allergies: 00:54 No Known Allergies; rr5 - Home Meds: 00:54 aspirin 81 mg Oral TbEC 1 tab once daily [Active]; metoprolol tartrate 100 mg Oral tab rr5 1 tab once daily [Active]; metformin 1,000 mg Oral tab 1 tab 2 times per day [Active]; lisinopril 2.5 mg Oral tab 1 tab once daily [Active]; cetirizine 10 mg Oral tab 1 tab once daily [Active]; tamsulosin 0.4 mg Oral cp24 2 caps once daily [Active]; atorvastatin 80 mg Oral tab 1 tab once daily [Active]; magnesium 500 mg daily Oral [Active]; niacin 500 mg daily [Active]; omega-3 Srill oil 500 mg daily [Active]; Zinc 50 mg daily [Active]; ultra CoQ10 100 mg daily [Active]; Cinnamon 1000 mg daily Oral [Active]; turmeric curcumin 500 mg daily [Active]; Folic acid 800 mcg daily [Active]; Vit E 400 IU daily [Active]; garlic 1000 mg miller [Active]; DHEA 50 mg daily [Active]; lutein 20 mg daily [Active]; L-Carnitine 500 mg Oral tab daily [Active]; B-12 1000 mcg daily [Active]; bilberry 250 mg daily [Active]; Lemon grass 400 mg daily [Active]; potassium 99 mg daily [Active]; Vitamin C 500 mg daily [Active]; - PMHx: 00:54 Diabetes - NIDDM; Hypertension; neuropathy; Urinary incontinence; rr5 - PSHx: 00:54 Appendectomy; Heart stents; back surgery; rr5 - Immunization history:: Adult Immunizations up to date. - Coronavirus screen:: The patient has NOT traveled to [place] in the past 14 days. - Social history:: Patient/guardian denies using alcohol, street drugs, The patient lives with family, Smoking status: unknown. - Family history:: not pertinent. - Ebola Screening: : Patient negative for fever greater than or equal to 101.5 degrees Fahrenheit, and additional compatible Ebola Virus Disease symptoms Patient denies exposure to infectious person Patient denies travel to an Ebola-affected area in the 21 days before illness onset. - Hospitalizations: : No recent hospitalization is reported. Screenin:48 Abuse screen: Denies threats or abuse. Denies injuries from another. Nutritional rv screening: No deficits noted. Tuberculosis screening: No symptoms or risk factors identified. Fall Risk None identified. Assessment: 01:00 General: Appears in no apparent distress. Behavior is drowsy. rv 01:00 Pain: Denies pain. Neuro: Level of Consciousness is confused, Oriented to person, rv place. Cardiovascular: Patient's skin is warm and dry. Respiratory: Airway is patent Respiratory pattern is tachypnea. GI: Parent/caregiver reports the patient having constipation. Derm: Skin with poor turgor. 02:40 Reassessment: Patient appears in no apparent distress at this time. Patient and/or rv family updated on plan of care and expected duration. Pain level reassessed. Patient is alert, oriented x 3, equal unlabored respirations, skin warm/dry/pink. blood pressure is dropping below systolic 90s. referred to Dr Avila. NS bolus given as ordered. 03:40 Reassessment: Patient appears in no apparent distress at this time. Patient and/or rv family updated on plan of care and expected duration. Pain level reassessed. Patient is alert, oriented x 3, equal unlabored respirations, skin warm/dry/pink. blood pressure elevated. vital signs stable. 03:57 Reassessment: CONFIRMED WITH DR AVILA IF THE PATIENT NEEDS ADDITIONAL ANTIBIOTICS. rv Vital Signs: 00:40 BP 181 / 74; Pulse 63; Resp 25; Temp 98.6; Pulse Ox 93% ; Weight 85.73 kg; Height 6 ft. rv 2 in. (187.96 cm); 01:00 BP 119 / 61; Pulse 88; Resp 26; Pulse Ox 93% on R/A; rv 01:30 BP 121 / 64; Pulse 84; Resp 21; Pulse Ox 95% on R/A; rv 02:00 BP 96 / 59; Pulse 90; Resp 25; Pulse Ox 94% on R/A; rv 02:15 BP 93 / 53; Pulse 91; Resp 24; Pulse Ox 94% on R/A; rv 02:30 BP 89 / 49; Pulse 88; Resp 21; Pulse Ox 95% on R/A; rv 02:45 BP 101 / 54; Pulse 89; Resp 19; Pulse Ox 94% on R/A; rv 03:00 BP 98 / 56; Pulse 87; Resp 18; Pulse Ox 94% on R/A; rv 03:15 BP 92 / 55; Pulse 91; Resp 20; Pulse Ox 95% on R/A; rv 03:55 BP 99 / 57; Pulse 90; Resp 18; Pulse Ox 95% on R/A; rv 00:40 Body Mass Index 24.27 (85.73 kg, 187.96 cm) rv Johny Coma Score: 00:40 Eye Response: to voice(3). Verbal Response: confused(4). Motor Response: obeys rr5 commands(6). Total: 13. ED Course: 00:34 Patient arrived in ED. rr5 00:35 Adrienne Avila MD is Attending Physician. ma2 00:40 Arm band placed on. rr5 00:40 Patient has correct armband on for positive identification. Placed in gown. Bed in low rr5 position. Call light in reach. Side rails up X2. Adult w/ patient. court recording monitor on. Pulse ox on. NIBP on. 00:40 First set of blood cultures drawn by me. rv 00:48 Triage completed. rr5 00:53 Vineet Umanzor, SHERIE is Primary Nurse. rv 00:55 Maintain EMS IV. Dressing intact. Good blood return noted. Site clean \T\ dry. Gauge \T\ rv site: g20 RIGHT FA. 01:20 Inserted saline lock: 18 gauge in left forearm, using aseptic technique. rv 01:20 Second set of blood cultures drawn by me. rv 01:30 Straight cath inserted, using sterile technique, 16 Fr. Specimen obtained. Returned rr5 cloudy urine. Patient tolerated well. 01:50 Chest Single View XRAY In Process Unspecified. EDMS 01:50 CT Head Brain wo Cont In Process Unspecified. EDMS 01:54 Adrienne Jacobs MD is Hospitalizing Provider. ma2 03:41 No provider procedures requiring assistance completed. Patient admitted, IV remains in rv place. Administered Medications: 00:45 Drug: NS 0.9% (30 ml/kg) 30 ml/kg Route: IV; Rate: bolus; Site: right forearm; rv 02:48 Follow up: IV Status: Completed infusion; IV Intake: 2000ml rv 01:31 Drug: Rocephin 1 grams Route: IV; Rate: calculated rate; Site: left forearm; rr5 02:48 Follow up: IV Status: Completed infusion rv 02:42 Drug: NS 0.9% 1000 ml Route: IV; Rate: 1 bolus; Site: right forearm; rv 03:21 Follow up: IV Status: Completed infusion; IV Intake: 1000ml rv Intake: 02:48 IV: 2000ml; Total: 2000ml. rv 03:21 IV: 1000ml; Total: 3000ml. rv Output: 01:30 Urine: 100ml (Straight Cath); Total: 100ml. rr5 Outcome: 01:55 Decision to Hospitalize by Provider. ma2 03:41 Admitted to Med/surg accompanied by nurse, via stretcher, room 202, with chart, Report rv called to ROBIN 03:41 Condition: stable 03:41 Discharge instructions given to patient, family, Instructed on the need for admit, Demonstrated understanding of instructions. 03:59 Patient left the ED. rv Signatures: Dispatcher [facility] Adrienne Medina MD MD ma2 Vineet Umanzor RN RN rv Yonis Brown RN RN rr5 Corrections: (The following items were deleted from the chart) 01:55 00:40 BP 181 / 74; Pulse 63bpm; Resp 15bpm; Pulse Ox 93%; Temp 98.6F; 85.73 kg; Height rv 6 ft. 2 in.; BMI: 24.2; rr5 01:56 00:40 Initial Sepsis Screen: Does the patient meet any 2 criteria? Altered Mental rr5 Status. Yes Does the patient have a suspected source of infection? Yes: Other: decrease LOC If YES to both, name of provider notified: Adrienne Avila MD rr5 02:48 02:47 IV Status: Completed infusion; IV Intake: 2000ml rv rv 03:40 03:40 Reassessment: blood pressure elevated. vital signs stable. rv rv
--- NOTE | 2019-04-24 01:58 | EDPHYS ---
Physician Documentation [facility] Name: Selvin Florentino Age: 84 yrs Sex: Male : 1935 Arrival Date: 04/24/2019 Time: 00:34 Bed 14 Private MD: ED Physician Adrienne Whitehead HPI: 04/24 01:52 This 84 yrs old Male presents to ER via EMS with complaints of tremors, ma2 nausea and no BM. 01:52 The patient presents with confusion. Onset: The symptoms/episode began/occurred ma2 gradually, 2 day(s) ago. Possible causes: low blood sugar, sepsis. Associated signs and symptoms: Pertinent positives: Pertinent negatives: ataxia, chest pain, combativeness, diaphoresis, diarrhea. The patient has experienced similar episodes in the past. Historical: - Allergies: 00:54 No Known Allergies; rr5 - Home Meds: 00:54 aspirin 81 mg Oral TbEC 1 tab once daily [Active]; metoprolol tartrate 100 mg Oral tab rr5 1 tab once daily [Active]; metformin 1,000 mg Oral tab 1 tab 2 times per day [Active]; lisinopril 2.5 mg Oral tab 1 tab once daily [Active]; cetirizine 10 mg Oral tab 1 tab once daily [Active]; tamsulosin 0.4 mg Oral cp24 2 caps once daily [Active]; atorvastatin 80 mg Oral tab 1 tab once daily [Active]; magnesium 500 mg daily Oral [Active]; niacin 500 mg daily [Active]; omega-3 Srill oil 500 mg daily [Active]; Zinc 50 mg daily [Active]; ultra CoQ10 100 mg daily [Active]; Cinnamon 1000 mg daily Oral [Active]; turmeric curcumin 500 mg daily [Active]; Folic acid 800 mcg daily [Active]; Vit E 400 IU daily [Active]; garlic 1000 mg miller [Active]; DHEA 50 mg daily [Active]; lutein 20 mg daily [Active]; L-Carnitine 500 mg Oral tab daily [Active]; B-12 1000 mcg daily [Active]; bilberry 250 mg daily [Active]; Lemon grass 400 mg daily [Active]; potassium 99 mg daily [Active]; Vitamin C 500 mg daily [Active]; - PMHx: 00:54 Diabetes - NIDDM; Hypertension; neuropathy; Urinary incontinence; rr5 - PSHx: 00:54 Appendectomy; Heart stents; back surgery; rr5 - Immunization history:: Adult Immunizations up to date. - Coronavirus screen:: The patient has NOT traveled to [place] in the past 14 days. - Social history:: Patient/guardian denies using alcohol, street drugs, The patient lives with family, Smoking status: unknown. - Family history:: not pertinent. - Ebola Screening: : Patient negative for fever greater than or equal to 101.5 degrees Fahrenheit, and additional compatible Ebola Virus Disease symptoms Patient denies exposure to infectious person Patient denies travel to an Ebola-affected area in the 21 days before illness onset. - Hospitalizations: : No recent hospitalization is reported. ROS: 01:52 Constitutional: Negative for fever, chills, and weight loss. ma2 01:52 All other systems are negative. Exam: 01:52 Head/Face: Normocephalic, atraumatic. Eyes: Pupils equal round and reactive to light, ma2 extra-ocular motions intact. Lids and lashes normal. Conjunctiva and sclera are non-icteric and not injected. Cornea within normal limits. Periorbital areas with no swelling, redness, or edema. ENT: Nares patent. No nasal discharge, no septal abnormalities noted. Tympanic membranes are normal and external auditory canals are clear. Oropharynx with no redness, swelling, or masses, exudates, or evidence of obstruction, uvula midline. Mucous membranes moist. Neck: Trachea midline, no thyromegaly or masses palpated, and no cervical lymphadenopathy. Supple, full range of motion without nuchal rigidity, or vertebral point tenderness. No Meningismus. Chest/axilla: Normal chest wall appearance and motion. Nontender with no deformity. No lesions are appreciated. Cardiovascular: Regular rate and rhythm with a normal S1 and S2. No gallops, murmurs, or rubs. Normal PMI, no JVD. No pulse deficits. Respiratory: Lungs have equal breath sounds bilaterally, clear to auscultation and percussion. No rales, rhonchi or wheezes noted. No increased work of breathing, no retractions or nasal flaring. Abdomen/GI: Soft, non-tender, with normal bowel sounds. No distension or tympany. No guarding or rebound. No evidence of tenderness throughout. 01:52 Constitutional: The patient appears lethargic. 01:52 Neuro: Orientation: unable to test, Mentation: slow to respond, confused. Vital Signs: 00:40 BP 181 / 74; Pulse 63; Resp 25; Temp 98.6; Pulse Ox 93% ; Weight 85.73 kg; Height 6 ft. rv 2 in. (187.96 cm); 01:00 BP 119 / 61; Pulse 88; Resp 26; Pulse Ox 93% on R/A; rv 01:30 BP 121 / 64; Pulse 84; Resp 21; Pulse Ox 95% on R/A; rv 02:00 BP 96 / 59; Pulse 90; Resp 25; Pulse Ox 94% on R/A; rv 02:15 BP 93 / 53; Pulse 91; Resp 24; Pulse Ox 94% on R/A; rv 02:30 BP 89 / 49; Pulse 88; Resp 21; Pulse Ox 95% on R/A; rv 02:45 BP 101 / 54; Pulse 89; Resp 19; Pulse Ox 94% on R/A; rv 03:00 BP 98 / 56; Pulse 87; Resp 18; Pulse Ox 94% on R/A; rv 03:15 BP 92 / 55; Pulse 91; Resp 20; Pulse Ox 95% on R/A; rv 03:55 BP 99 / 57; Pulse 90; Resp 18; Pulse Ox 95% on R/A; rv 00:40 Body Mass Index 24.27 (85.73 kg, 187.96 cm) rv [place] Coma Score: 00:40 Eye Response: to voice(3). Verbal Response: confused(4). Motor Response: obeys rr5 commands(6). Total: 13. MDM: 00:35 Patient medically screened. ma2 01:52 Differential Diagnosis: electrolyte abnormality, sepsis, UTI, volume depletion. Data ma2 reviewed: vital signs, nurses notes. Counseling: I had a detailed discussion with the patient and/or guardian regarding: the historical points, exam findings, and any diagnostic results supporting the discharge/admit diagnosis, the presence of at least one elevated blood pressure reading (>120/80) during this emergency department visit, the need for outpatient follow up. Response to treatment: the patient's symptoms have markedly improved after treatment. 04/24 00:42 Order name: Urine Culture ma2 04/24 00:42 Order name: Amylase, Serum ut2 04/24 00:42 Order name: Basic Metabolic Panel ut2 04/24 00:42 Order name: Blood Culture Adult (2) ut2 04/24 00:42 Order name: CBC with Diff ut2 04/24 00:42 Order name: Ckmb ut2 04/24 00:42 Order name: CPK ut2 04/24 00:42 Order name: Lactate ut2 04/24 00:42 Order name: LFT's ut2 04/24 00:42 Order name: Lipase ut2 04/24 00:42 Order name: Procalcitonin ut2 04/24 00:42 Order name: Protime (+inr) ut2 04/24 00:42 Order name: Ptt, Activated [facility] 04/24 00:42 Order name: Troponin (emerg Dept Use Only) ut2 04/24 00:42 Order name: Urine Microscopic Only ut2 04/24 01:02 Order name: Glucose, Ancillary Testing; Complete Time: 01: EDCO 04/24 01:13 Order name: Protime (+INR); Complete Time: 01: EDMS 04/24 01:13 Order name: PTT, Activated Partial Thromb; Complete Time: 01: EDMS 04/24 01:14 Order name: CBC with Automated Diff EDCO 04/24 01:22 Order name: Basic Metabolic Panel; Complete Time: 01: EDMS 04/24 01:22 Order name: Liver (Hepatic) Function; Complete Time: 01:31 EDMS 04/24 01:23 Order name: Creatine Phosphokinase; Complete Time: 01: EDMS 04/24 01:23 Order name: CKMB Creatine Kinase MB; Complete Time: 01:31 EDMS 04/24 01:23 Order name: Troponin (Emerg Dept Use Only); Complete Time: 01:31 EDMS 04/24 01:23 Order name: Amylase Level; Complete Time: 01: EDMS 04/24 01:23 Order name: Lipase; Complete Time: 01: EDMS 04/24 01:45 Order name: Urine Dipstick--Ancillary (enter results) [place] 04/24 01:55 Order name: Manual Differential EDCO 04/24 03:20 Order name: Lactate rv 04/24 03:52 Order name: Lactate Sepsis 2 HR Follow-up EDCO 04/24 00:42 Order name: Chest Single View XRAY [facility] 04/24 00:42 Order name: Accucheck; Complete Time: 00:55 [facility] 04/24 00:42 Order name: Cardiac monitoring; Complete Time: 00:55 [facility] 04/24 00:42 Order name: EKG - Nurse/Tech; Complete Time: 01:45 [facility] 04/24 00:42 Order name: IV Saline Lock - Large Bore; Complete Time: 00:55 [facility] 04/24 00:42 Order name: Labs collected and sent; Complete Time: 00:55 [facility] 04/24 00:42 Order name: O2 Per Protocol; Complete Time: 00:55 [facility] 04/24 00:42 Order name: O2 Sat Monitoring; Complete Time: 00:55 [facility] 04/24 00:42 Order name: Urine Dipstick-Ancillary (obtain specimen); Complete Time: 01:45 [facility] 04/24 00:42 Order name: CT Head Brain wo Cont [facility] 04/24 02:54 Order name: CONS Pharmacy Consult [facility] 04/24 02:54 Order name: Heart Healthy [facility] Administered Medications: 00:45 Drug: NS 0.9% (30 ml/kg) 30 ml/kg Route: IV; Rate: bolus; Site: right forearm; rv 02:48 Follow up: IV Status: Completed infusion; IV Intake: 2000ml rv 01:31 Drug: Rocephin 1 grams Route: IV; Rate: calculated rate; Site: left forearm; rr5 02:48 Follow up: IV Status: Completed infusion rv 02:42 Drug: NS 0.9% 1000 ml Route: IV; Rate: 1 bolus; Site: right forearm; rv 03:21 Follow up: IV Status: Completed infusion; IV Intake: 1000ml rv Disposition: 04/24/19 01:55 Hospitalization ordered by Adrienne Jacobs for Inpatient Admission. Preliminary diagnosis are Cystitis, unspecified without hematuria, Sepsis due to other Gram-negative organisms, Altered mental status, unspecified. - Bed requested for Telemetry/MedSurg (Inpatient). - Status is Inpatient Admission. rv - Condition is Guarded. - Problem is new. - Symptoms are unchanged. Signatures: Dispatcher [employer] EDCO Brandi Pa mt, Mohammad, MD MD ma2 Vineet Umanzor RN RN rv Yonis Brown RN RN rr5 Corrections: (The following items were deleted from the chart) 03:16 01:55 Hospitalization Ordered by Adrienne Jacobs MD for Inpatient Admission. Preliminary mt diagnosis is Cystitis, unspecified without hematuria; Sepsis due to other Gram-negative organisms; Altered mental status, unspecified. Bed requested for Telemetry/MedSurg (Inpatient). Status is Inpatient Admission. Condition is Guarded. Problem is new. Symptoms are unchanged. ma2 03:59 03:16 04/24/2019 01:55 Hospitalization Ordered by Adrienne Jacobs MD for Inpatient rv Admission. Preliminary diagnosis is Cystitis, unspecified without hematuria; Sepsis due to other Gram-negative organisms; Altered mental status, unspecified. Bed requested for Telemetry/MedSurg (Inpatient). Status is Inpatient Admission. Condition is Guarded. Problem is new. Symptoms are unchanged. mt
[2019-04-24] MEDS ORDERED: ACETAMINOPHEN 500 MG TAB PO PRN (02:48)
[2019-04-24] MEDS ORDERED: MORPHINE 2 MG/ML SYR IV PRN (02:48)
[2019-04-24] MEDS ORDERED: ONDANSETRON 4 MG/2 ML VIAL IV PRN (02:48)
[2019-04-24] MEDS ORDERED: NA CHLORIDE 0.9% 1,000 ML IV SCH (03:00)
[2019-04-24 03:24] LABS: Blood Morphology Comment NOTED (NOT SEEN); Platelet Estimate ADEQ
[2019-04-24 03:33] LABS: Urine Culture Reflex Order NOT NEEDED
[2019-04-24 03:35] LABS: Urine Bacteria >50 /HPF (NONE SEEN); Urine RBC <5 /HPF (NONE SEEN); Urine Urothelial Cells <5 /HPF (NONE SEEN)
[2019-04-24 03:40] LABS: Urine Blood TRACE (NEG); Urine Glucose NEGATIVE (NEG); Urine Protein TRACE (NEG); Urine Specific Gravity 1.025 (1.005-1.030); Urine pH 5.5 (5.0-7.0)
[2019-04-24] MEDS ORDERED: ACETAMINOPHEN 500 MG TAB ONE (03:55)
[2019-04-24 04:42] VITALS: BMI 21.9
[2019-04-24 06:38] LABS: Potassium 4.7 mmol/L (3.5-5.1)
--- NOTE | 2019-04-24 06:48 | P.HP ---
Certification for Inpatient Patient admitted to: Inpatient With expected LOS: >2 Midnights Patient will require the following post-hospital care: None Practitioner: I am a practitioner with admitting privileges, knowledge of patient current condition, hospital course, and medical plan of care. Services: Services provided to patient in accordance with Admission requirements found in Title 42 Section 412.3 of the Code of Federal Regulations Patient History Date of Service: 04/24/19 Reason for admission: Altered mental status History of Present Illness: Patient is an 84-year-old gentleman who came to the hospital with altered mental status. Patient was found have confusion and he has not been acting like himself for the last couple of days. He has been having some tremors as well. His physician credentialing specialist called the EMS for further evaluation. In the emergency room patient was found have a urinary tract infection. Patient was also hypotensive. Patient was given some IV fluids. His blood pressure has stabilized. Patient most likely has toxic encephalopathy. Patient may be bacteremic to most likely causing his confusion. He does not meet SIRS criteria at this time. Will continue monitoring him closely on the telemetry floor. Allergies No Known Allergies Allergy (Verified 04/24/19 04:42) Home Medications: Acetylcarnitine [Acetyl l-Carnitine] 500 mg PO DAILY 05/25/18 Aspirin 81 mg PO DAILY 05/25/18 Atorvastatin Calcium [Lipitor] 80 mg PO BEDTIME 05/25/18 Bilberry 250 mg PO DAILY 05/25/18 Cetirizine HCl 10 mg PO DAILY 05/25/18 Cinnamon Bark [Cinnamon] 1,000 mg PO DAILY 05/25/18 Folic Acid 800 mcg PO DAILY 05/25/18 Garlic 1,000 mg PO DAILY 05/25/18 Lemon Grass 400 mg PO DAILY 05/25/18 Lisinopril [Zestril] 2.5 mg PO DAILY 05/25/18 Lutein 20 mg PO DAILY 05/25/18 Magnesium Oxide [Magnesium] 500 mg PO DAILY 05/25/18 Metformin HCl [Metformin ER Gastric] 1,000 mg PO DAILY 05/25/18 Niacin [Niacin ER] 500 mg PO DAILY 05/25/18 Dickens-3/Dha/Epa/Fish Oil [Dickens 3 500 Softgel] 500 mg PO DAILY 05/25/18 Prasterone (Dhea)/Calcium Carb [Dhea 50 mg Tablet] 50 mg PO DAILY 05/25/18 Tamsulosin [Flomax*] 0.4 mg PO BID 05/25/18 Turmeric Root Extract [Turmeric] 500 mg PO DAILY 05/25/18 Ubidecarenone [Ultra Coq10] 100 mg PO DAILY 05/25/18 Vit B12/Levomefolate/Vit B6/B2 [Metafolbic Tablet] 1,000 mcg PO DAILY 05/25/18 Vit C/Ascorb Sod/Multivit-Min [Emergen-C 500 mg Chewable Tab] 500 mg PO DAILY Vitamin E [Vitamin E*] 400 iu PO DAILY 05/25/18 Zinc 50 mg PO DAILY 05/25/18 Metoprolol Tartrate 1 tab PO DAILY 04/24/19 Potassium Gluconate [Potassium] 1 tab PO DAILY 04/24/19 - Past Medical/Surgical History Has patient received pneumonia vaccine in the past: Yes Diabetic: Yes -: diabetes -: high cholesterol -: GERD -: HTN -: pneumonia -: Inguinal hernia -: Aortic Stent -: Hernia repair -: appendectomy -: Cholecystectomy - Family History Father Medical History: Hypertension, Diabetes, Other (see notes) Notes: Urinary incontinence - Social History Smoking Status: Former smoker Alcohol use: No Place of Residence: Home Review of Systems 10-point ROS is otherwise unremarkable Physical Examination - Vital Signs Temperature: 99.4 F Blood Pressure: 97/59 Pulse: 70 Respirations: 18 Pulse Ox (%): 94 - Physical Exam General: Alert, In no apparent distress, Oriented x1 HEENT: Atraumatic, PERRLA, Mucous membr. moist/pink, EOMI, Sclerae nonicteric Neck: Supple, 2+ carotid pulse no bruit, No LAD, Without JVD or thyroid abnormality Respiratory: Clear to auscultation bilaterally, Normal air movement Cardiovascular: Regular rate/rhythm, Normal S1 S2, No murmurs Gastrointestinal: Normal bowel sounds, Soft and benign, Non-distended, No tenderness, No rebound, No guarding Musculoskeletal: No clubbing, No swelling, No tenderness Integumentary: No rashes Neurological: Normal gait, Normal speech, Normal strength at 5/5 x4 extr, Normal tone, Sensation intact, Cranial nerves 3-12 intact, Normal affect Lymphatics: No axilla or inguinal lymphadenopathy - Studies Laboratory Data (last 24 hrs) 04/24/19 00:40: PT 11.6, INR 0.98, APTT 22.0 L 04/24/19 00:40: WBC 6.7, Hgb 12.3 L, Hct 37.7 L, Plt Count 186 04/24/19 00:40: Sodium 140, Potassium 4.5, BUN 16, Creatinine 1.09, Glucose 133 H, Total Bilirubin 0.7, AST 24, ALT 36, Alkaline Phosphatase 99, Amylase 52, Lipase 201 Assessment & Plan - Problems (Diagnosis) (1) Altered mental status Current Visit: Yes Status: Acute (2) Acute lower UTI Current Visit: Yes Status: Acute (3) Bacteremia Current Visit: Yes Status: Acute (4) Toxic encephalopathy Onset Date: 09/27/17 Current Visit: No Status: Acute - Plan Plan: 1. Aggressive IV hydration 2. Pain control 3. Monitor vital signs closely 4. Await urine and blood cultures 5. Repeat lactate and procalcitonin along with a hemoglobin A1c this morning 6. GI and DVT prophylaxis Discharge Plan: Home Plan to discharge in: Greater than 2 days - Advance Directives Does patient have a Living Will: Yes Does patient have a Durable POA for Healthcare: Yes - Code Status/Comfort Care Code Status Assessed: Yes Code Status: Full Code Critical Care: No Time Spent Managing PTS Care (In Minutes): 45
[2019-04-24] MEDS ORDERED: NA CHLORIDE 0.9% 500 ML IV ONE ×2 (07:19→08:30)
--- NOTE | 2019-04-24 08:08 | RAD REPORT ---
EXAM DESCRIPTION: [place] Single View04/24/2019 1:21 am CLINICAL HISTORY: Congestion COMPARISON: 2019 FINDINGS: Mild right basilar opacity Left lung appears clear The heart is borderline enlarged IMPRESSION: Mild right basilar opacity may represent a mild infiltrate or atelectasis
[2019-04-24] MEDS: CEFTRIAXONE/SWI 1gm 1 GM/10 ML SYR IV SCH ×2 (08:16→20:34)
[2019-04-24] MEDS ORDERED: NOREPINEPHRINE 4 MG in D5W 250 ML IV PRN (08:31)
--- NOTE | 2019-04-24 08:33 | P.INFCA ---
Sepsis Focused Assessment - Focused Assessment Complete? Sepsis Focused Assessment Completed?: Yes - Sepsis Screen Result Severe Sepsis: Positive - Evaluation Current stage of sepsis: Severe sepsis - Vital Signs Reviewed: Yes Heart rate: 60 Blood Pressure: 85/50 - Examination Date exam was performed: 04/24/19 Time exam was performed: 07:10 Heart: Regular rate/rhythm Lungs: Clear bilaterally Peripheral pulses: 3+ Normal Peripheral pulse location: Radial Capillary refill: >2 Seconds Skin examination: Other (Dry, tenting)
[2019-04-24] MEDS ORDERED: METOPROLOL XL 100 MG TAB PO SCH (09:00)
[2019-04-24] MEDS: NA CHLORIDE 0.9% 1,000 ML IV SCH ×3 (09:00→22:38)
[2019-04-24] MEDS ORDERED: METOPROLOL XL 50 MG TAB PO SCH ×2 (09:00)
[2019-04-24] MEDS ORDERED: D50W 25 GM/50 ML SYRINGE/VIAL IV PRN (09:58)
[2019-04-24] MEDS ORDERED: GLUCAGON 1 MG/VIAL IM PRN (09:58)
--- NOTE | 2019-04-24 09:58 | P.PN ---
Subjective Date of Service: 04/24/19 Primary Care Provider: Unknown Chief Complaint: Altered mental status Subjective: Other (Patient alert and appropriate. Blood pressure is low.) Physical Examination - Vital Signs Temperature: 97.8 F Blood Pressure: 85/50 Pulse: 60 Respirations: 18 Pulse Ox (%): 94 - Physical Exam General: Alert, Cooperative HEENT: Atraumatic, Other (Dry mucous membranes) Neck: Supple Respiratory: Clear to auscultation bilaterally, Normal air movement Cardiovascular: Normal pulses, Regular rate/rhythm Gastrointestinal: Normal bowel sounds, Soft and benign, Non-distended Integumentary: Other (Dry skin noted. Tenting noted.) Neurological: Normal speech, Normal strength at 5/5 x4 extr, Normal tone, Normal affect - Studies Laboratory Data (last 24 hrs) 04/24/19 00:40: PT 11.6, INR 0.98, APTT 22.0 L 04/24/19 00:40: WBC 6.7, Hgb 12.3 L, Hct 37.7 L, Plt Count 186 04/24/19 00:40: Sodium 140, Potassium 4.5, BUN 16, Creatinine 1.09, Glucose 133 H, Total Bilirubin 0.7, AST 24, ALT 36, Alkaline Phosphatase 99, Amylase 52, Lipase 201 Medications List Reviewed: Yes Assessment & Plan Discharge Plan: Home Plan to discharge in: Greater than 2 days Physician Review Additional Text: Impression: Sepsis with toxic encephalopathy likely related to recurrent UTI Hypotension with history of hypertension likely related to sepsis Diabetes mellitus type 2 BPH Plan: Sepsis with toxic encephalopathy likely related to recurrent UTI: Patient was assess this morning. Blood pressure remained low. Patient was given IV fluid bolus x2. Still low. Will transition patient to ICU. Will start vasopressor to maintain map of 65. Continue aggressive IV fluid hydration. Patient on sepsis protocol. Continue with IV antibiotic therapy. Mentation stable. Will review other lab. Will continue to monitor the patient closely. Blood and urine cultures obtained. Pro calcitonin elevated. I will turn the service over to the hospitalist team tomorrow. I will go over plan of care with him. Hypotension with history of hypertension likely related to sepsis: Blood pressure medications currently on hold. Patient been given sepsis bolus. Continue with aggressive fluid hydration. Patient given another bolus of fluid. Maintain map of 65. Patient will likely require vasopressor therapy. Diabetes mellitus type 2: Will monitor Accu-Cheks. Will provide sliding scale. Will check A1c. BPH: Currently on hold at this time. Time Spent Managing Pts Care (In Minutes): 55
--- NOTE | 2019-04-24 10:18 | RAD REPORT ---
EXAM DESCRIPTION: CT - Head Brain Wo Cont - 04/24/2019 5:38 am CLINICAL HISTORY: 84 years Male CONFUSED TECHNIQUE: Contiguous axial CT images obtained through the brain without IV contrast. Coronal and sa gittal reformatted images also provided. This exam was performed according to our department optimization program which includes automated exp osure control, adjustment of the mA and/or kv according to patient size and/or use of iterative recon struction technique. COMPARISON: 03/05/2014 FINDINGS: There is no intracranial hemorrhage, extraaxial collection, or evidence of acute transcort ical infarction. Stable chronic right lateral frontal and left anteroinferior frontal encephalomalacia. Chronic right parietal encephalomalacia is new since the prior exam. Confluent periventricular microvascular change s have progressed since the prior exam with moderate diffuse volume loss. Confluent areas of low attenuation within the periventricular and subcortical white matter are most c ompatible with chronic microvascular disease. There are basal ganglia lacunes and moderate diffuse volume loss without mass effect or midline shift. Vascular calcifications are noted. No lesion of the skull base or calvarium is identified. The parana dante sinuses and mastoid air cells are clear. IMPRESSION: No acute intracranial abnormality. Chronic encephalomalacia, chronic microvascular changes and volume loss. Electronically signed by: Michelle Young MD 04/24/2019 1:36 AM SOLE SEAMER Due to temporary technical issues with the PACS/Fluency reporting system, reports are being signed by the in house radiologist as a courtesy to ensure prompt reporting. The interpreting radiologist is f ully responsible for the content of the report.
--- NOTE | 2019-04-24 11:23 | EKG ---
Test Date: 2019-04-24 Test Time: 01:52:54 Athlete Marketing Agent: MIGUELANGEL MEASUREMENT RESULTS: Intervals: Rate: 88 DC: 280 QRSD: 118 QT: 388 QTc: 469 [place]: P: 42 DC: 280 QRS: -32 T: 32 INTERPRETIVE STATEMENTS: Sinus rhythm with 1st degree AV block with occasional premature ventricular complexes Left axis deviation Right bundle branch block Abnormal ECG Compared to ECG 05/24/2018 23:43:33 Ventricular premature complex(es) now present Sinus bradycardia no longer present Atrial premature complex(es) no longer present Electronically Signed On 04-24-19 11:23:13 [employer] by Forrest Zayas
[2019-04-24] MEDS: INSULIN -REGULAR HUMAN 50 UNIT/0.5 ML ML SQ SCH ×3 (11:30→20:35)
--- NOTE | 2019-04-24 11:33 | ECHO ---
HEIGHT: 6 ft 2 in WEIGHT: 171 lb 0 oz DATE OF STUDY: 04/24/[address]: Adrienne Jacobs MD 2-DIMENSIONAL: YES M.MODE: YES DOPPLER: YES COLOR FLOW: YES TDS: NO PORTABLE: YES DEFINITY: NO BUBBLE STUDY: NO DIAGNOSIS: HYPOTENSION CARDIAC HISTORY: CATHERIZATION: YES SURGERY: NO PROSTHETIC VALVE: NO PACEMAKER: NO MEASUREMENTS (cm) DIASTOLIC (NORMALS) SYSTOLIC (NORMALS) IVSd 1.0 (0.6-1.2) LA Diam 3.1 (1.9-4.0) LVEF 72% LVIDd 2.6 (3.5-5.7) LVIDs 1.6 (2.0-3.5) %FS 39% LVPWd 1.0 (0.6-1.2) Ao Diam 3.4 (2.0-3.7) 2 DIMENSIONAL ASSESSMENT: RIGHT ATRIUM: NORMAL LEFT ATRIUM: NORMAL RIGHT VENTRICLE: NORMAL LEFT VENTRICLE: NORMAL TRICUSPID VALVE: NORMAL MITRAL VALVE: NORMAL PULMONIC VALVE: NORMAL AORTIC VALVE: NORMAL PERICARDIAL EFFUSION: NONE AORTIC ROOT: NORMAL LEFT VENTRICULAR WALL MOTION: NORMAL DOPPLER/COLOR FLOW: MILD TRICUSPID REGURGITATION. NORMAL RIGHT VENTRICULAR SYSTOLIC PRESSURE. COMMENTS: NORMAL 2D ECHOCARDIOGRAM. MILD TRICUSPID REGURGITATION. TECHNOLOGIST: Brad PIKE
[2019-04-24] MEDS: ENOXAPARIN 40 MG/0.4 ML SQ SCH (16:59)
[2019-04-24] MEDS: ATORVASTATIN 80 MG TAB PO SCH (20:34)
[2019-04-25] MEDS: NA CHLORIDE 0.9% 1,000 ML IV SCH ×3 (05:00→10:49)
[2019-04-25 05:16] LABS: Absolute Lymphocytes (CBC) 1.1 K/uL (0.7-4.9); Basophils % 0.7 % (0-1.3); Hematocrit 30.5 % (39.6-49.0); Lymphocytes % 20.9 % (15.3-44.8); MPV 7.6 fL (7.6-11.3); RBC Red Blood Cell Count 3.26 M/uL (4.33-5.43)
[2019-04-25 05:29] LABS: BUN Blood Urea Nitrogen 15 mg/dL (7-18); Bicarbonate 23 mmol/L (21-32); Glucose Level 105 mg/dL (74-106); Magnesium 1.8 mg/dL (1.8-2.4); Potassium 4.3 mmol/L (3.5-5.1); Sodium Level 142 mmol/L (136-145)
[2019-04-25] MEDS ORDERED: MAGNESIUM SULFATE 1 gm IVPB 1 GM/100 ML BAG IV ONE (07:00)
[2019-04-25] MEDS: INSULIN -REGULAR HUMAN 50 UNIT/0.5 ML ML SQ SCH ×4 (07:14→20:13)
[2019-04-25] MEDS: CEFTRIAXONE/SWI 1gm 1 GM/10 ML SYR IV SCH ×2 (08:48→20:13)
[2019-04-25] MEDS: DOCOSAHEXANOIC AC/EPA 1000 MG PO SCH (08:48)
[2019-04-25] MEDS: ASPIRIN 81 MG CHEWABLE TABLET PO SCH (08:48)
[2019-04-25] MEDS: MAGNESIUM OXIDE 400 MG TAB PO SCH (08:49)
[2019-04-25] MEDS: NIACIN 500 MG SR TAB PO SCH (08:49)
[2019-04-25] MEDS: FOLIC ACID 1 MG TABLET PO SCH (08:49)
[2019-04-25] MEDS: CYANOCOBALAMIN 1,000 MCG TAB PO SCH (08:50)
--- NOTE | 2019-04-25 10:33 | RAD REPORT ---
EXAM DESCRIPTION: RAD - Chest Single View - 04/25/2019 9:44 am CLINICAL HISTORY: r/o volume overload COMPARISON: Chest Single View dated 04/24/2019; Chest Single View dated 05/24/2018 TECHNIQUE: AP portable chest image was obtained 04/25/2019 9:44 am . FINDINGS: Lungs are slightly underinflated. Stranding in the left lung base is favored to be atelect asis but can be monitored on follow-up imaging. Left lung field is otherwise clear. Patchy right base opacification seen on the April 24 study may be slightly better. There is a focal masslike densit y in the right upper lung field. This may possibly be hypertrophy of the first rib sternum articulati on. However, a right upper lobe mass cannot be excluded. This can be monitored short-term on chest im aging. Heart and vasculature are normal. No pneumothorax or large pleural effusion. No acute bony abn ormality seen. No acute aortic findings suspected. IMPRESSION: Left base parenchymal opacity favored to be atelectasis on this shallow inspiration exam . Finding can be monitored for possible early pneumonia. Slight improvement on the medial opacification previously seen in the right base. Small masslike density in the right upper lung field is probably first rib bony hypertrophy. This nee ds to be monitored for possible right upper lobe mass. If the possibility of right upper lobe mass persists on follow-up chest film imaging, CT chest examin ation could be performed.
--- NOTE | 2019-04-25 10:57 | P.PN ---
Subjective Date of Service: 04/25/19 Primary Care Provider: Unknown Chief Complaint: Altered mental status Subjective: Improving Patient seen and examined chart reviewed and case discussed with RN. Patient did not require pressors. Blood pressure significantly improved this morning. Review of Systems 10-point ROS is otherwise unremarkable Physical Examination - Vital Signs Temperature: 97.7 F Blood Pressure: 154/75 Pulse: 60 Respirations: 17 Pulse Ox (%): 98 - Physical Exam General: Alert, Oriented x3, Mild distress, Other (Ill-appearing elderly male, frail) HEENT: Atraumatic, PERRLA, Mucous membr. moist/pink, EOMI Neck: Supple, JVD not distended Respiratory: Diminished, Other (No wheezing or use of accessory muscles) Cardiovascular: No edema, Normal pulses, Regular rate/rhythm, Normal S1 S2 Gastrointestinal: Normal bowel sounds, Soft and benign, Non-distended, No tenderness Musculoskeletal: No tenderness Integumentary: No rashes, No erythema Neurological: Normal speech, Normal tone, Cranial nerves 3-12 intact, Normal affect, Other (Generalized weakness of bilateral lower extremities) - Studies Laboratory Last Values WBC 5.2 K/uL (4.3-10.9) D 04/25/19 05:06 RBC 3.26 M/uL (4.33-5.43) L 04/25/19 05:06 Hgb 10.1 g/dL (13.6-17.9) L 04/25/19 05:06 Hct 30.5 % (39.6-49.0) L D 04/25/19 05:06 MCV 93.5 fL (80-100) 04/25/19 05:06 MCH 30.8 pg (27.0-35.0) 04/25/19 05:06 MCHC 33.0 g/dL (32.0-36.0) 04/25/19 05:06 RDW 14.5 % (12.1-15.2) 04/25/19 05:06 Plt Count 154 K/uL (152-406) 04/25/19 05:06 MPV 7.6 fL (7.6-11.3) 04/25/19 05:06 Neutrophils % 61.5 % (41.7-73.7) 04/25/19 05:06 Lymphocytes % 20.9 % (15.3-44.8) 04/25/19 05:06 Monocytes % 13.2 % (3.3-12.3) H 04/25/19 05:06 Eosinophils % 3.7 % (0-4.4) 04/25/19 05:06 Basophils % 0.7 % (0-1.3) 04/25/19 05:06 Absolute Neutrophils 3.2 K/uL (1.8-8.0) 04/25/19 05:06 Segmented Neutrophils 80 % (40-80) 04/24/19 00:40 Band Neutrophils 8 % (0-1) H 04/24/19 00:40 Absolute Lymphocytes 1.1 K/uL (0.7-4.9) 04/25/19 05:06 Lymphocytes 7 % (15-42) L 04/24/19 00:40 Monocytes 2 % (0-10) 04/24/19 00:40 Absolute Monocytes 0.7 K/uL (0.1-1.3) 04/25/19 05:06 Eosinophils 2 % (0-3) 04/24/19 00:40 Absolute Eosinophils 0.2 K/uL (0-0.5) 04/25/19 05:06 Basophils 1 % (0-1) 04/24/19 00:40 Absolute Basophils 0.0 K/uL (0-0.5) 04/25/19 05:06 Schistocytes 2+ 04/24/19 00:40 Morphology Comment Noted (NOT SEEN) 04/24/19 00:40 PT 11.6 SECONDS (9.5-12.5) 04/24/19 00:40 INR 0.98 04/24/19 00:40 APTT 22.0 SECONDS (24.3-36.9) L 04/24/19 00:40 Sodium 142 mmol/L (136-145) 04/25/19 05:06 Potassium 4.3 mmol/L (3.5-5.1) 04/25/19 05:06 Chloride 113 mmol/L (98-107) H 04/25/19 05:06 Carbon Dioxide 23 mmol/L (21-32) 04/25/19 05:06 BUN 15 mg/dL (7-18) 04/25/19 05:06 Creatinine 0.79 mg/dL (0.55-1.3) 04/25/19 05:06 Estimated GFR > 90 mL/min (=/>90) 04/25/19 05:06 Glucose 105 mg/dL (74-106) 04/25/19 05:06 POC Glucose 156 mg/dl (65-120) H 04/24/19 20:30 Hemoglobin A1c 7.0 % (4.2-6.3) H 04/24/19 06:09 Lactic Acid 1.4 mmol/L (0.4-2.0) 04/24/19 06:09 Calcium 7.6 mg/dL (8.5-10.1) L 04/25/19 05:06 Magnesium 1.8 mg/dL (1.8-2.4) 04/25/19 05:06 Total Bilirubin 0.7 mg/dL (0.2-1.0) 04/24/19 00:40 Direct Bilirubin 0.2 mg/dL (0-0.2) 04/24/19 00:40 AST 24 U/L (15-37) 04/24/19 00:40 ALT 36 U/L (12-78) 04/24/19 00:40 Alkaline Phosphatase 99 U/L (45-117) 04/24/19 00:40 Creatine Kinase 59 U/L (39-308) 04/24/19 00:40 CK-MB (CK-2) 1.1 ng/mL (0.3-3.6) 04/24/19 00:40 Rapid Troponin I < 0.02 ng/mL (0.0-0.045) 04/24/19 00:40 Serum Total Protein 6.5 g/dL (6.4-8.2) 04/24/19 00:40 Albumin 3.4 g/dL (3.4-5.0) 04/24/19 00:40 Globulin 3.1 g/dL (2.3-3.5) 04/24/19 00:40 Albumin/Globulin Ratio 1.1 (1.1-1.8) 04/24/19 00:40 Amylase 52 U/L (25-115) 04/24/19 00:40 Lipase 201 U/L (73-393) 04/24/19 00:40 Procalcitonin 2.75 ng/mL (<0.50) H 04/24/19 06:09 Urine pH 5.5 (5.0-7.0) 04/24/19 01:45 Ur Specific [place] 1.025 (1.005-1.030) 04/24/19 01:45 Glucose (UA)(Auto) Negative (NEG) 04/24/19 01:45 Urine Ketones Negative (NEG) 04/24/19 01:45 Urine Blood Trace (NEG) H 04/24/19 01:45 Urine Nitrite Positive (NEG) H 04/24/19 01:45 Ur Leukocyte Esterase 1+ (NEG) H 04/24/19 01:45 Urine RBC <5 /HPF (NONE SEEN) 04/24/19 01:40 Urine WBC 20-50 /HPF (<5) H 04/24/19 01:40 Ur Squamous Epith Cells <5 /HPF (NONE SEEN) 04/24/19 01:40 Ur Urothelial Cells <5 /HPF (NONE SEEN) 04/24/19 01:40 Urine Bacteria >50 /HPF (NONE SEEN) H 04/24/19 01:40 Urine Culture Reflexed Not needed 04/24/19 01:40 Urine Total Protein Trace (NEG) 04/24/19 01:45 Microbiology Data (last 24 hrs): Gram-negative rods urine culture Imagings Data: CXR Left base parenchymal opacity favored to be atelectasis on this shallow inspiration exam. Finding can be monitored for possible early pneumonia. Slight improvement on the medial opacification previously seen in the right base. Small mass like density in the right upper lung field is probably first rib bony hypertrophy. This needs to be monitored for possible right upper lobe mass. If the possibility of right upper lobe mass persists on follow-up chest film imaging, CT chest examination could be performed. Medications List Reviewed: Yes Assessment And Plan Discharge Plan: [facility] Plan to discharge in: 24 Hours - Code Status/Comfort Care Code Status Assessed: Yes Physician Review Additional Text: Impression: Sepsis with toxic encephalopathy likely related to recurrent UTI Hypotension with history of hypertension likely related to sepsis Diabetes mellitus type 2 BPH Atelectasis Plan: Sepsis with toxic encephalopathy likely related to recurrent UTI: Improving. Blood pressure were stable. Did not require any pressors. Will step down from ICU. Urine culture growing out Gram negative rods. Will await ID and sensitivity. Continue Rocephin. Continue IV fluids. Monitor blood pressure closely Hypotension with history of hypertension likely related to sepsis: Blood pressure medications currently on hold. Improved with IV fluid resuscitation. Diabetes mellitus type 2: Will monitor Accu-Cheks. Will provide sliding scale. Will check A1c. Atelectasis: Incentive spirometry. PT eval for ambulation. Patient may need fpc facility placement seems to be very weak. BPH: Medication currently on hold at this time. Likely discharge in the next 24-48 hr depending on clinical improvement may need placement suggest fpc facility versus home health pending PT eval
[2019-04-25] MEDS: ENOXAPARIN 40 MG/0.4 ML SQ SCH (18:20)
[2019-04-25] MEDS: ATORVASTATIN 80 MG TAB PO SCH (20:13)
[2019-04-25] MEDS ORDERED: HYDRALAZINE HCL 20 MG/ML VIAL IV PRN (21:53)
[2019-04-25] MEDS ORDERED: BISACODYL 10 MG RECTAL SUPP PR ONE (21:55)
[2019-04-26 06:08] LABS: Absolute Lymphocytes (CBC) 0.9 K/uL (0.7-4.9); Basophils % 0.9 % (0-1.3); Hematocrit 36.8 % (39.6-49.0); Lymphocytes % 19.9 % (15.3-44.8); MPV 8.4 fL (7.6-11.3); RBC Red Blood Cell Count 3.99 M/uL (4.33-5.43)
[2019-04-26] MEDS: NA CHLORIDE 0.9% 1,000 ML IV SCH (06:32)
[2019-04-26] MEDS: INSULIN -REGULAR HUMAN 50 UNIT/0.5 ML ML SQ SCH ×4 (07:30→21:00)
[2019-04-26] MEDS: NIACIN 500 MG SR TAB PO SCH (08:47)
[2019-04-26] MEDS: CEFTRIAXONE/SWI 1gm 1 GM/10 ML SYR IV SCH (08:47)
[2019-04-26] MEDS: DOCOSAHEXANOIC AC/EPA 1000 MG PO SCH (08:47)
[2019-04-26] MEDS: CYANOCOBALAMIN 1,000 MCG TAB PO SCH (08:47)
[2019-04-26] MEDS: MAGNESIUM OXIDE 400 MG TAB PO SCH (08:47)
[2019-04-26] MEDS: ASPIRIN 81 MG CHEWABLE TABLET PO SCH (08:47)
[2019-04-26] MEDS: FOLIC ACID 1 MG TABLET PO SCH (08:47)
--- NOTE | 2019-04-26 11:14 | P.PN ---
Subjective Date of Service: 04/26/19 Primary Care Provider: Unknown Chief Complaint: Altered mental status Patient seen and examined chart reviewed and case discussed with RN. Urine culture growing out ESBL E. coli. Patient is amenable to going to a detention facility for rehab and long-term IV antibiotics Review of Systems 10-point ROS is otherwise unremarkable Physical Examination - Vital Signs Temperature: 97.9 F Blood Pressure: 164/85 Pulse: 85 Respirations: 16 Pulse Ox (%): 96 - Physical Exam General: Alert, In no apparent distress, Oriented x3, Other (Ill-appearing elderly male, frail) HEENT: Atraumatic, PERRLA, EOMI Neck: Supple, JVD not distended Respiratory: Clear to auscultation bilaterally, Normal air movement Cardiovascular: No edema, Normal pulses, Regular rate/rhythm, Normal S1 S2 Gastrointestinal: Normal bowel sounds, Soft and benign, Non-distended, No tenderness Musculoskeletal: No tenderness Integumentary: No rashes, No erythema Neurological: Normal speech, Normal tone, Normal affect - Studies Laboratory Last Values WBC 4.7 K/uL (4.3-10.9) 04/26/19 05:20 RBC 3.99 M/uL (4.33-5.43) L D 04/26/19 05:20 Hgb 12.2 g/dL (13.6-17.9) L 04/26/19 05:20 Hct 36.8 % (39.6-49.0) L D 04/26/19 05:20 MCV 92.3 fL (80-100) 04/26/19 05:20 MCH 30.7 pg (27.0-35.0) 04/26/19 05:20 MCHC 33.2 g/dL (32.0-36.0) 04/26/19 05:20 RDW 14.1 % (12.1-15.2) 04/26/19 05:20 Plt Count 210 K/uL (152-406) D 04/26/19 05:20 MPV 8.4 fL (7.6-11.3) D 04/26/19 05:20 Neutrophils % 63.3 % (41.7-73.7) 04/26/19 05:20 Lymphocytes % 19.9 % (15.3-44.8) 04/26/19 05:20 Monocytes % 11.6 % (3.3-12.3) 04/26/19 05:20 Eosinophils % 4.3 % (0-4.4) 04/26/19 05:20 Basophils % 0.9 % (0-1.3) 04/26/19 05:20 Absolute Neutrophils 3.0 K/uL (1.8-8.0) 04/26/19 05:20 Segmented Neutrophils 80 % (40-80) 04/24/19 00:40 Band Neutrophils 8 % (0-1) H 04/24/19 00:40 Absolute Lymphocytes 0.9 K/uL (0.7-4.9) 04/26/19 05:20 Lymphocytes 7 % (15-42) L 04/24/19 00:40 Monocytes 2 % (0-10) 04/24/19 00:40 Absolute Monocytes 0.6 K/uL (0.1-1.3) 04/26/19 05:20 Eosinophils 2 % (0-3) 04/24/19 00:40 Absolute Eosinophils 0.2 K/uL (0-0.5) 04/26/19 05:20 Basophils 1 % (0-1) 04/24/19 00:40 Absolute Basophils 0.0 K/uL (0-0.5) 04/26/19 05:20 Schistocytes 2+ 04/24/19 00:40 Morphology Comment Noted (NOT SEEN) 04/24/19 00:40 PT 11.6 SECONDS (9.5-12.5) 04/24/19 00:40 INR 0.98 04/24/19 00:40 APTT 22.0 SECONDS (24.3-36.9) L 04/24/19 00:40 Sodium 141 mmol/L (136-145) 04/26/19 05:20 Potassium 4.0 mmol/L (3.5-5.1) 04/26/19 05:20 Chloride 109 mmol/L (98-107) H 04/26/19 05:20 Carbon Dioxide 25 mmol/L (21-32) 04/26/19 05:20 BUN 13 mg/dL (7-18) 04/26/19 05:20 Creatinine 0.90 mg/dL (0.55-1.3) 04/26/19 05:20 Estimated GFR 81 mL/min (=/>90) L 04/26/19 05:20 Glucose 195 mg/dL (74-106) H 04/26/19 05:20 POC Glucose 162 mg/dl (65-120) H 04/26/19 08:00 Hemoglobin A1c 7.0 % (4.2-6.3) H 04/24/19 06:09 Lactic Acid 1.4 mmol/L (0.4-2.0) 04/24/19 06:09 Calcium 8.2 mg/dL (8.5-10.1) L 04/26/19 05:20 Magnesium 2.0 mg/dL (1.8-2.4) 04/26/19 05:20 Total Bilirubin 0.7 mg/dL (0.2-1.0) 04/24/19 00:40 Direct Bilirubin 0.2 mg/dL (0-0.2) 04/24/19 00:40 AST 24 U/L (15-37) 04/24/19 00:40 ALT 36 U/L (12-78) 04/24/19 00:40 Alkaline Phosphatase 99 U/L (45-117) 04/24/19 00:40 Creatine Kinase 59 U/L (39-308) 04/24/19 00:40 CK-MB (CK-2) 1.1 ng/mL (0.3-3.6) 04/24/19 00:40 Rapid Troponin I < 0.02 ng/mL (0.0-0.045) 04/24/19 00:40 Serum Total Protein 6.5 g/dL (6.4-8.2) 04/24/19 00:40 Albumin 3.4 g/dL (3.4-5.0) 04/24/19 00:40 Globulin 3.1 g/dL (2.3-3.5) 04/24/19 00:40 Albumin/Globulin Ratio 1.1 (1.1-1.8) 04/24/19 00:40 Amylase 52 U/L (25-115) 04/24/19 00:40 Lipase 201 U/L (73-393) 04/24/19 00:40 Procalcitonin 2.75 ng/mL (<0.50) H 04/24/19 06:09 Urine pH 5.5 (5.0-7.0) 04/24/19 01:45 Ur Specific [place] 1.025 (1.005-1.030) 04/24/19 01:45 Glucose (UA)(Auto) Negative (NEG) 04/24/19 01:45 Urine Ketones Negative (NEG) 04/24/19 01:45 Urine Blood Trace (NEG) H 04/24/19 01:45 Urine Nitrite Positive (NEG) H 04/24/19 01:45 Ur Leukocyte Esterase 1+ (NEG) H 04/24/19 01:45 Urine RBC <5 /HPF (NONE SEEN) 04/24/19 01:40 Urine WBC 20-50 /HPF (<5) H 04/24/19 01:40 Ur Squamous Epith Cells <5 /HPF (NONE SEEN) 04/24/19 01:40 Ur Urothelial Cells <5 /HPF (NONE SEEN) 04/24/19 01:40 Urine Bacteria >50 /HPF (NONE SEEN) H 04/24/19 01:40 Urine Culture Reflexed Not needed 04/24/19 01:40 Urine Total Protein Trace (NEG) 04/24/19 01:45 Microbiology Data (last 24 hrs): 04/24/19 01:40 Catheterized Urine [place] Count - Final >100,000 CFU/ML. 04/24/19 01:40 Catheterized Urine - Final Escherichia Coli Esbl Medications List Reviewed: Yes Assessment And Plan Physician Review Additional Text: Impression: Sepsis with toxic encephalopathy likely related to recurrent UTI Hypotension with history of hypertension likely related to sepsis Diabetes mellitus type 2 BPH Atelectasis Plan: Sepsis with toxic encephalopathy likely related to recurrent UTI: Improving. Blood pressure is stable. Did not require any pressors. Secondary to UTI Urine culture done showing ESBL E. COLI. Switch IV antibiotics to meropenem. Place PICC line for treatment for a minimum of 2 weeks. Discontinue IV fluids. Monitor blood pressure closely Acute cystitis secondary to ESBL E coli. Adjust IV antibiotics to meropenem. Patient will need treatment for 2 weeks Hypotension with history of hypertension likely related to sepsis: Blood pressure medications currently on hold. Improved with IV fluid resuscitation. Diabetes mellitus type 2: Will monitor Accu-Cheks. Will provide sliding scale. Will check A1c. Atelectasis: Incentive spirometry. PT eval for ambulation. Patient may need detention facility placement seems to be very weak. BPH: Medication currently on hold at this time. Referred to detention facility for physical therapy and long-term IV antibiotics for 2 weeks. Discharge once accepted
[2019-04-26] MEDS ORDERED: Meropenem 1000 MG/VIAL IV SCH (17:00)
[2019-04-26] MEDS: ENOXAPARIN 40 MG/0.4 ML SQ SCH (17:04)
[2019-04-26] MEDS: Meropenem 1,000 MG in NA CHLORIDE 0.9% 100 ML IV SCH (17:04)
[2019-04-26] MEDS: ATORVASTATIN 80 MG TAB PO SCH (21:21)
[2019-04-27] MEDS: Meropenem 1,000 MG in NA CHLORIDE 0.9% 100 ML IV SCH ×3 (00:34→17:40)
[2019-04-27] MEDS ORDERED: LIDOCAINE 1% MPF 5 ML VIAL IM PRN (04:00)
[2019-04-27] MEDS ORDERED: SODIUM CHLORIDE 0.9% 10ML INJ IV PRN ×2 (04:00)
[2019-04-27 05:39] LABS: Absolute Lymphocytes (CBC) 0.7 K/uL (0.7-4.9); Basophils % 0.5 % (0-1.3); Hematocrit 36.3 % (39.6-49.0); Lymphocytes % 8.9 % (15.3-44.8); RBC Red Blood Cell Count 3.88 M/uL (4.33-5.43)
[2019-04-27 05:44] LABS: BUN Blood Urea Nitrogen 10 mg/dL (7-18); Bicarbonate 27 mmol/L (21-32); Glucose Level 128 mg/dL (74-106); Magnesium 1.9 mg/dL (1.8-2.4); Sodium Level 141 mmol/L (136-145)
[2019-04-27] MEDS: INSULIN -REGULAR HUMAN 50 UNIT/0.5 ML ML SQ SCH ×4 (07:30→20:39)
--- NOTE | 2019-04-27 08:39 | RAD REPORT ---
EXAM DESCRIPTION: RAD - Chest Single View - 04/27/2019 8:24 am CLINICAL HISTORY: 84 years Male, PICC line Placement COMPARISON: 04/25/2019. FINDINGS: The heart and mediastinum are remarkable for atherosclerosis of the thoracic aorta. A right-sided PICC line has been placed with distal tip at the atrial caval junction.. The lung alexander are clear of active infiltrates. There is mild left basilar atelectasis. The pulmonary vascularity is unremarkable. No active pleural disease is present. IMPRESSION: 1. Successful placement right-sided PICC line. 2. Mild left basilar atelectasis. 3. Atherosclerotic disease. Electronically signed by: Bartolo Benoit MD 04/26/2019 9:38 PM HEALTH SCIENCE INSTRUCTOR Due to temporary technical issues with the PACS/Fluency reporting system, reports are being signed by the in house radiologist as a courtesy to ensure prompt reporting. The interpreting radiologist is f ully responsible for the content of the report.
[2019-04-27] MEDS: MAGNESIUM OXIDE 400 MG TAB PO SCH (09:00)
[2019-04-27] MEDS: SODIUM CHLORIDE 0.9% 10ML INJ IV SCH ×2 (09:00→20:45)
[2019-04-27] MEDS: NIACIN 500 MG SR TAB PO SCH (09:20)
[2019-04-27] MEDS: DOCOSAHEXANOIC AC/EPA 1000 MG PO SCH (09:20)
[2019-04-27] MEDS: CYANOCOBALAMIN 1,000 MCG TAB PO SCH (09:21)
[2019-04-27] MEDS: ASPIRIN 81 MG CHEWABLE TABLET PO SCH (09:22)
[2019-04-27] MEDS: FOLIC ACID 1 MG TABLET PO SCH (10:08)
--- NOTE | 2019-04-27 10:36 | P.PN ---
Subjective Date of Service: 04/27/19 Primary Care Provider: Unknown Chief Complaint: Altered mental status Patient seen and examined chart reviewed and case discussed with RN. Patient now refusing to go to senior living facility despite the fact that he is very weak and unable to ambulate without significant assistance. He states he wants his to administer the IV antibiotics Review of Systems 10-point ROS is otherwise unremarkable Physical Examination - Vital Signs Temperature: 98.4 F Blood Pressure: 110/72 Pulse: 80 Respirations: 17 Pulse Ox (%): 93 - Physical Exam General: Alert, In no apparent distress, Oriented x3, Other (Elderly frail male) HEENT: Atraumatic, PERRLA, EOMI Neck: Supple Respiratory: Clear to auscultation bilaterally, Normal air movement Cardiovascular: No edema, Normal pulses, Regular rate/rhythm, Normal S1 S2 Gastrointestinal: Normal bowel sounds, Soft and benign, Non-distended, No tenderness Musculoskeletal: No tenderness Integumentary: No rashes, No erythema Neurological: Normal speech, Normal tone, Cranial nerves 3-12 intact, Normal affect - Studies Laboratory Tests 04/24/19 04/24/19 04/24/19 00:40 00:40 00:40 WBC 6.7 RBC 3.98 L Hgb 12.3 L Hct 37.7 L MCV 94.8 MCH 30.9 MCHC 32.6 RDW 14.4 Plt Count 186 MPV 8.0 Neutrophils % 89.0 H Lymphocytes % 5.6 L Monocytes % 3.9 Eosinophils % 1.0 Basophils % 0.5 Absolute Neutrophils 6.0 Segmented Neutrophils 80 Band Neutrophils 8 H Absolute Lymphocytes 0.4 L Lymphocytes 7 L Monocytes 2 Absolute Monocytes 0.3 Eosinophils 2 Absolute Eosinophils 0.1 Basophils 1 Absolute Basophils 0.0 Schistocytes 2+ Morphology Comment Noted PT INR APTT Sodium 140 Potassium 4.5 Chloride 109 H Carbon Dioxide 24 BUN 16 Creatinine 1.09 Estimated GFR 65 L Glucose 133 H POC Glucose Lactic Acid 3.4 H Calcium 8.1 L Total Bilirubin 0.7 Direct Bilirubin 0.2 AST 24 ALT 36 Alkaline Phosphatase 99 Creatine Kinase 59 CK-MB (CK-2) 1.1 Rapid Troponin I < 0.02 Serum Total Protein 6.5 Albumin 3.4 Globulin 3.1 Albumin/Globulin Ratio 1.1 Amylase 52 Lipase 201 Procalcitonin Urine pH Ur Specific [place] Glucose (UA)(Auto) Urine Ketones Urine Blood Urine Nitrite Ur Leukocyte Esterase Urine RBC Urine WBC Ur Squamous Epith Cells Ur Urothelial Cells Urine Bacteria Urine Culture Reflexed Urine Total Protein 04/24/19 04/24/19 04/24/19 00:40 00:40 00:49 WBC RBC Hgb Hct MCV MCH MCHC RDW Plt Count MPV Neutrophils % Lymphocytes % Monocytes % Eosinophils % Basophils % Absolute Neutrophils Segmented Neutrophils Band Neutrophils Absolute Lymphocytes Lymphocytes Monocytes Absolute Monocytes Eosinophils Absolute Eosinophils Basophils Absolute Basophils Schistocytes Morphology Comment PT 11.6 INR 0.98 APTT 22.0 L Sodium Potassium Chloride Carbon Dioxide BUN Creatinine Estimated GFR Glucose POC Glucose 125 H Lactic Acid Calcium Total Bilirubin Direct Bilirubin AST ALT Alkaline Phosphatase Creatine Kinase CK-MB (CK-2) Rapid Troponin I Serum Total Protein Albumin Globulin Albumin/Globulin Ratio Amylase Lipase Procalcitonin 0.50 Urine pH Ur Specific [place] Glucose (UA)(Auto) Urine Ketones Urine Blood Urine Nitrite Ur Leukocyte Esterase Urine RBC Urine WBC Ur Squamous Epith Cells Ur Urothelial Cells Urine Bacteria Urine Culture Reflexed Urine Total Protein 04/24/19 04/24/19 01:40 01:45 WBC RBC Hgb Hct MCV MCH MCHC RDW Plt Count MPV Neutrophils % Lymphocytes % Monocytes % Eosinophils % Basophils % Absolute Neutrophils Segmented Neutrophils Band Neutrophils Absolute Lymphocytes Lymphocytes Monocytes Absolute Monocytes Eosinophils Absolute Eosinophils Basophils Absolute Basophils Schistocytes Morphology Comment PT INR APTT Sodium Potassium Chloride Carbon Dioxide BUN Creatinine Estimated GFR Glucose POC Glucose Lactic Acid Calcium Total Bilirubin Direct Bilirubin AST ALT Alkaline Phosphatase Creatine Kinase CK-MB (CK-2) Rapid Troponin I Serum Total Protein Albumin Globulin Albumin/Globulin Ratio Amylase Lipase Procalcitonin Urine pH 5.5 Ur Specific [place] 1.025 Glucose (UA)(Auto) Negative Urine Ketones Negative Urine Blood Trace H Urine Nitrite Positive H Ur Leukocyte Esterase 1+ H Urine RBC <5 Urine WBC 20-50 H Ur Squamous Epith Cells <5 Ur Urothelial Cells <5 Urine Bacteria >50 H Urine Culture Reflexed Not needed Urine Total Protein Trace Microbiology Data (last 24 hrs): 04/24/19 01:40 Catheterized Urine [place] Count - Final >100,000 CFU/ML. 04/24/19 01:40 Catheterized Urine - Final Escherichia Coli Esbl Imagings Data: EXAM DESCRIPTION: RAD - Chest Single View - 04/27/2019 8:24 am CLINICAL HISTORY: 84 years Male, PICC line Placement COMPARISON: 04/25/2019. FINDINGS: The heart and mediastinum are remarkable for atherosclerosis of the thoracic aorta. A right-sided PICC line has been placed with distal tip at the atrial caval junction.. The lung alexander are clear of active infiltrates. There is mild left basilar atelectasis. The pulmonary vascularity is unremarkable. No active pleural disease is present. IMPRESSION: 1. Successful placement right-sided PICC line. 2. Mild left basilar atelectasis. 3. Atherosclerotic disease. Electronically signed by: Bartolo Benoit MD 04/26/2019 9:38 PM DIESEL MECHANIC APPRENTICE Due to temporary technical issues with the PACS/Fluency reporting system, reports are being signed by the in house radiologist as a courtesy to ensure prompt reporting. The interpreting radiologist is fully responsible for the content of the report. Medications List Reviewed: Yes Assessment And Plan - Code Status/Comfort Care Code Status Assessed: Yes Physician Review Additional Text: Impression: Sepsis with toxic encephalopathy likely related to recurrent UTI Hypotension with history of hypertension likely related to sepsis Diabetes mellitus type 2 BPH Atelectasis Plan: Sepsis with toxic encephalopathy likely related to recurrent UTI: Improving. Blood pressure is stable. Secondary to UTI Urine culture showing ESBL E. COLI. Switch IV antibiotics to meropenem. PICC line in place. Patient will need treatment for a minimum of 2 weeks. Acute cystitis secondary to ESBL E coli. Continue meropenem. Patient will need treatment for 2 weeks hypertension not well controlled: Patient was initially hypotensive due to sepsis now blood pressure in the 190 systolic. Blood pressure medications resumed. IV hydralazine added p.r.n. Diabetes mellitus type 2: Will monitor Accu-Cheks. Will provide sliding scale. Stable Atelectasis: Incentive spirometry. PT eval for ambulation. Patient refusing senior living facility placement BPH: Medication currently on hold at this time. Patient now refusing senior living facility placement he understands that he is very weak has risk for fall which may lead to hip fracture brain bleed or even he states that he has lived so far and he will continue to live on despite his weakness. He wants his to administer the IV antibiotics at home rather than receiving IV antibiotics at the senior living facility will reach out to the . Patient does have a daughter in [place].
[2019-04-27] MEDS: ENOXAPARIN 40 MG/0.4 ML SQ SCH (17:40)
[2019-04-27] MEDS: ATORVASTATIN 80 MG TAB PO SCH (20:44)
[2019-04-27] MEDS: TAMSULOSIN 0.4 MG SR CAP PO SCH (20:44)
[2019-04-28] MEDS: Meropenem 1,000 MG in NA CHLORIDE 0.9% 100 ML IV SCH ×3 (02:04→16:23)
[2019-04-28 05:45] LABS: Absolute Lymphocytes (CBC) 1.3 K/uL (0.7-4.9); Basophils % 0.9 % (0-1.3); Hematocrit 35.1 % (39.6-49.0); Lymphocytes % 19.1 % (15.3-44.8); MPV 7.7 fL (7.6-11.3); RBC Red Blood Cell Count 3.76 M/uL (4.33-5.43)
[2019-04-28 06:00] LABS: Potassium 4.2 mmol/L (3.5-5.1)
[2019-04-28] MEDS: INSULIN -REGULAR HUMAN 50 UNIT/0.5 ML ML SQ SCH ×3 (07:30→16:14)
[2019-04-28] MEDS ORDERED: lisinopriL 5 MG TAB PO SCH (09:00)
[2019-04-28] MEDS ORDERED: METOPROLOL TAR 50 MG TAB PO SCH (09:00)
[2019-04-28] MEDS: DOCOSAHEXANOIC AC/EPA 1000 MG PO SCH (09:17)
[2019-04-28] MEDS: CYANOCOBALAMIN 1,000 MCG TAB PO SCH (09:17)
[2019-04-28] MEDS: ASPIRIN 81 MG CHEWABLE TABLET PO SCH (09:17)
[2019-04-28] MEDS: FOLIC ACID 1 MG TABLET PO SCH (09:17)
[2019-04-28] MEDS: TAMSULOSIN 0.4 MG SR CAP PO SCH (09:17)
[2019-04-28] MEDS: MAGNESIUM OXIDE 400 MG TAB PO SCH (09:18)
[2019-04-28] MEDS: SODIUM CHLORIDE 0.9% 10ML INJ IV SCH (09:22)
[2019-04-28] MEDS: NIACIN 500 MG SR TAB PO SCH (10:24)
[2019-04-28 12:50] VITALS: O2SAT 94
[2019-04-28] MEDS: ENOXAPARIN 40 MG/0.4 ML SQ SCH (16:23)
[2019-04-28 16:31] VITALS: BP 100/60; TEMP 97.5
--- NOTE | 2019-04-29 02:26 | DS ---
Date of Discharge: 04/28/2019 Consultants: None. Admitting Diagnoses: 1.Altered mental status. 2.Acute lower urinary tract infection. 3.Bacteremia. 4.Toxic encephalopathy. Discharge Diagnoses: 1.Sepsis, resolved. 2.Toxic encephalopathy related to urinary tract infection, resolved, back to baseline. 3.Acute cystitis without hematuria secondary to extended-spectrum beta-lactamase Escherichia coli on meropenem. 4.Acute hypotensive episode due to sepsis, resolved. 5.Diabetes mellitus type 2 with hyperglycemia, [id number], stable. 6.Atelectasis. 7.Benign prostatic hypertrophy. 8.Essential hypertension. Hospital Course: Patient is an 84-year-old male with past medical history of hypertension, diabetes, BPH, high cholesterol, comes in with altered mental status. Patient was found to have UTI. Patient was started on IV antibiotics. He was also found to be septic. His blood cultures remained negativ e; however, his urine culture grew out ESBL E coli. He was switched over to meropenem. PICC line wa s placed and IV antibiotics were arranged for a long-term treatment of 2 weeks for ESBL E coli. Patient was very weak. After his mental status improved, he was participating with physical therapy, however, was very weak. jail facility placement was recommended for the patient. Raad covarrubias he agreed, however, subsequently he declined going to snf facility as he wanted to go back home. He states he has 3 grandchildren to take care of and the nursing facilities and his insu annamarie are far away. He understands that the patient is weak. He likely has a fall risk, he may deve lop hip fracture, brain bleed, or even . He says that he has been living for a long time and wi ll continue living despite these risk factors. I reached out to the , she did not answer my call ; however, she was amenable to setting with the infusion for the patient's long-term IV antibiotics s he was taught by the IV infusion company. Again, patient was implored to go to a snf fac ility versus inpatient rehab, however refused. He remains a significant fall risk, I would not be miller rprised as the patient is unable to take care of himself at home despite home health being set up. Ruel case does have a daughter in [place], lives with his who is also aged and elderly. The patie nt's sepsis resolved, his blood pressure was stable, he was then discharged home with home health in a stable condition. Activity: Fall precautions. Diet: Diabetic. Followup: Follow up with primary care physician in 2-3 days. Return to ER for worsening condition. Patient will have his weekly lab CBC, CMP, ESR, and CRP sent to his PCP to monitor his IV antibiotic infusion therapy. PCP to adjust dose renally. PICC line care has been ordered. PICC line to be di scontinued once IV antibiotics are complete. Medications: As per medication reconciliation list. Physical Examination: General: Awake, alert, and oriented x3. Elderly male, frail. CV: S1, S2. Respiratory: Moving air well bilaterally. Abdomen: Abdomen is soft, nontender, nondistended. Positive bowel sounds. Extremities: No clubbing, cyanosis, or edema. Neurologic: Nonfocal. Total time spent discharging patient was 41 minutes. /YA Voice ID: [id number] Report ID: [id number]
== END 2019-04-28 17:58 | disposition home health service (06) | DRG 871 ==
LOC: ER 00:31 → ERHOLD 02:57 → 2ND 03:43 → 3RD-ICU 08:50 → 2ND 04-25 10:50 → 4TH 04-27 16:54
PROVIDERS: ADMIT Hospitalist; ATTEND Family Medicine
DX: A41.9 Sepsis, unspecified organism (principal); G92 Toxic encephalopathy; N30.00 Acute cystitis without hematuria; Z16.12 Extended spectrum beta lactamase (ESBL) resistance; J98.11 Atelectasis; R65.20 Severe sepsis without septic shock; I10 Essential (primary) hypertension; N40.1 Benign prostatic hyperplasia with lower urinary tract symptoms; E11.65 Type 2 diabetes mellitus with hyperglycemia; B96.20 Unspecified Escherichia coli [E. coli] as the cause of diseases classified elsewhere; E78.00 Pure hypercholesterolemia, unspecified; I95.89 Other hypotension
CPT/HCPCS: 36415; 51702; 70450; 71045; 80048; 80076; 81003; 81015; 82150; 82550; 82553; 82947; 83036; 83605; 83690; 83735; 84145; 84484; 85025; 85610; 85730; 87040; 87077; 87086; 87088; 87186; 93005; 93306; 96361; 96365; 97110; 97116; 97161; 97530; 99285; J0360; J0696; J1650; J3475; J7030; J7060

== ENCOUNTER 2020-05-28 20:06 | Inpatient (IN) | payer OTHER ==
[2020-05-28 20:45] LABS: Absolute Lymphocytes (CBC) 1.1 K/uL (0.7-4.9); Basophils % 0.8 % (0-1.3); Hematocrit 32.9 % (39.6-49.0); Lymphocytes % 15.4 % (15.3-44.8); MPV 8.5 fL (7.6-11.3); RBC Red Blood Cell Count 3.51 M/uL (4.33-5.43)
[2020-05-28 20:46] LABS: Protime INR 1.1
[2020-05-28] MEDS ORDERED: NA CHLORIDE 0.9% 1,000 ML ONE (20:49)
[2020-05-28 21:00] LABS: ALT/SGPT 21 U/L (12-78); AST/SGOT 10 U/L (15-37); Albumin 2.7 g/dL (3.4-5.0); Alkaline Phosphatase 73 U/L (45-117); BUN Blood Urea Nitrogen 23 mg/dL (7-18); Bicarbonate 23 mmol/L (21-32); Bilirubin Direct 0.2 mg/dL (0-0.2); Bilirubin Total 0.6 mg/dL (0.2-1.0); Glucose Level 146 mg/dL (74-106); NT PRO-BNP 1156 pg/mL (<450); Potassium 3.6 mmol/L (3.5-5.1); Protein, Total 5.4 g/dL (6.4-8.2); Sodium Level 142 mmol/L (136-145); Troponin (Emerg Dept Use Only) < 0.02 ng/mL (0.0-0.045)
--- NOTE | 2020-05-28 21:10 | RAD REPORT ---
EXAM DESCRIPTION: CT - Abdomen Pelvis Wo Contrast - 05/28/2020 8:48 pm CLINICAL HISTORY: Abdominal pain. ABD PAIN COMPARISON: [facility] Protocol dated 01/19/2017 TECHNIQUE: CT imaging of the abdomen and pelvis was performed without contrast. Solid organ, bowel a nd vascular assessment is limited due to lack of IV and oral contrast. All CT scans are performed using dose optimization technique as appropriate and may include automated exposure control or mA/KV adjustment according to patient size. FINDINGS: Mild posterior bibasilar lung opacities are present, greater on the right. The liver, spleen, pancreas, adrenal glands and kidneys are within normal limits for a limited non-co ntrast examination.Cholecystectomy clips. No bowel obstruction, free air, free fluid or abscess. There is a large amount stool retained in the rectosigmoid colon with colonic wall thickening. The osseous structures are within normal limits. IMPRESSION: Marked fecal impaction in the rectosigmoid colon with evidence of stercoral colitis. A limited non-contrast examination was performed as detailed.
--- NOTE | 2020-05-28 21:18 | RAD REPORT ---
EXAM DESCRIPTION: RAD - Chest Single View - 05/28/2020 8:44 pm CLINICAL HISTORY: vtach Chest pain. COMPARISON: Chest Single View dated 04/26/2019; Chest Single View dated 04/25/2019; Chest Single View dated 04/24/2019; Chest Single View dated 05/24/2018 FINDINGS: Portable technique limits examination quality. Mild opacities are present in both lung bases, greater on the right, likely atelectasis. The heart is normal in size. No displaced fractures.
--- NOTE | 2020-05-28 21:20 | EDPHYS ---
Physician Documentation [facility] Name: Selvin Florentino Age: 85 yrs Sex: Male : 1935 Arrival Date: 05/28/2020 Time: 20:08 Bed 4 Private MD: ED Physician Edvin Barros HPI: 05/28 20:26 This 85 yrs old Male presents to ER via EMS with complaints of Diarrhea. anuja 20:26 The patient presents to the emergency department with nausea, vomiting, that is anuja continuous. Onset: The symptoms/episode began/occurred just prior to arrival. Possible causes: unknown. The symptoms are aggravated by nothing. The symptoms are alleviated by nothing. Severity of symptoms: At their worst the symptoms were mild moderate in the emergency department the symptoms are unchanged. The patient has not experienced similar symptoms in the past. Historical: - Allergies: 20:15 No Known Allergies; wh - Home Meds: 20:15 tamsulosin 0.4 mg oral cp24 1 cap once daily [Active]; atorvastatin 20 mg oral tab 1 wh tab once daily [Active]; metformin 500 mg oral tab 1 tab daily [Active]; metoprolol tartrate 100 mg Oral tab .5 tab 2 times per day [Active]; aspirin 81 mg Oral TbEC 1 tab once daily [Active]; lisinopril 2.5 mg Oral tab 1 tab as needed [Active]; turmeric curcumin 500 mg daily [Active]; magnesium 500 mg daily Oral [Active]; potassium 99 mg daily [Active]; Folic acid 800 mcg daily [Active]; B-12 1000 mcg daily [Active]; Cinnamon 1000 mg daily Oral [Active]; - PMHx: 20:15 Diabetes - NIDDM; Hypertension; neuropathy; Urinary incontinence; wh - Immunization history:: Adult Immunizations unknown. - Social history:: Smoking status: unknown. ROS: 20:28 Constitutional: Negative for fever, chills, and weight loss, Eyes: Negative for injury, anuja pain, redness, and discharge, ENT: Negative for injury, pain, and discharge, Neck: Negative for injury, pain, and swelling, Cardiovascular: Negative for chest pain, palpitations, and edema, Respiratory: Negative for shortness of breath, cough, wheezing, and pleuritic chest pain, Back: Negative for injury and pain, : Negative for injury, bleeding, discharge, and swelling, MS/Extremity: Negative for injury and deformity, Skin: Negative for injury, rash, and discoloration, Neuro: Negative for headache, weakness, numbness, tingling, and seizure, Psych: Negative for depression, anxiety, suicide ideation, homicidal ideation, and hallucinations, Allergy/Immunology: Negative for hives, rash, and allergies, Endocrine: Negative for neck swelling, polydipsia, polyuria, polyphagia, and marked weight changes, Hematologic/Lymphatic: Negative for swollen nodes, abnormal bleeding, and unusual bruising. 20:28 Cardiovascular: Positive for per ems non sustained VT. 20:28 Abdomen/GI: Positive for diarrhea. 20:28 Neuro: Positive for weakness. Exam: 20:28 Constitutional: This is a well developed, well nourished patient who is awake, alert, anuja and in no acute distress. Head/Face: Normocephalic, atraumatic. Eyes: Pupils equal round and reactive to light, extra-ocular motions intact. Lids and lashes normal. Conjunctiva and sclera are non-icteric and not injected. Cornea within normal limits. Periorbital areas with no swelling, redness, or edema. ENT: Nares patent. No nasal discharge, no septal abnormalities noted. Tympanic membranes are normal and external auditory canals are clear. Oropharynx with no redness, swelling, or masses, exudates, or evidence of obstruction, uvula midline. Mucous membranes moist. Neck: Trachea midline, no thyromegaly or masses palpated, and no cervical lymphadenopathy. Supple, full range of motion without nuchal rigidity, or vertebral point tenderness. No Meningismus. Chest/axilla: Normal chest wall appearance and motion. Nontender with no deformity. No lesions are appreciated. Cardiovascular: Regular rate and rhythm with a normal S1 and S2. No gallops, murmurs, or rubs. Normal PMI, no JVD. No pulse deficits. Respiratory: Lungs have equal breath sounds bilaterally, clear to auscultation and percussion. No rales, rhonchi or wheezes noted. No increased work of breathing, no retractions or nasal flaring. Abdomen/GI: Soft, non-tender, with normal bowel sounds. No distension or tympany. No guarding or rebound. No evidence of tenderness throughout. Back: No spinal tenderness. No costovertebral tenderness. Full range of motion. Male : Normal genitalia with no discharge or lesions. Skin: Warm, dry with normal turgor. Normal color with no rashes, no lesions, and no evidence of cellulitis. MS/ Extremity: Pulses equal, no cyanosis. Neurovascular intact. Full, normal range of motion. Neuro: Awake and alert, GCS 15, oriented to person, place, time, and situation. Cranial nerves II-XII grossly intact. Motor strength 5/5 in all extremities. Sensory grossly intact. Cerebellar exam normal. Normal gait. Psych: Awake, alert, with orientation to person, place and time. Behavior, mood, and affect are within normal limits. 20:31 ECG was reviewed by the Attending Physician. [facility] Vital Signs: 20:08 BP 139 / 81; Pulse 72; Resp 20; Temp 97.8; Pulse Ox 94% on 2 lpm NC; 22:00 BP 168 / 82; Pulse 82; Resp 18; Pulse Ox 95% on 1 lpm NC; 05/29 00:00 BP 159 / 100; Pulse 74; Resp 18; Pulse Ox 95% on 1 lpm NC; MDM: 05/28 20:12 Patient medically screened. anuja 20:29 Differential diagnosis: arrythmia, dehydration, Nonspecific abd pain, pancreatitis, anuja viral gastroenteritis, gastroenteritis. Data reviewed: vital signs, nurses notes, lab test result(s), EKG, radiologic studies, CT scan, plain films. Data interpreted: school lunch monitor: rate is 72 beats/min, rhythm is regular. Test interpretation: by ED physician or midlevel provider: ECG, plain radiologic studies. Counseling: I had a detailed discussion with the patient and/or guardian regarding: the historical points, exam findings, and any diagnostic results supporting the discharge/admit diagnosis, lab results, radiology results, the need for further work-up and treatment in the hospital. 05/28 20:19 Order name: Basic Metabolic Panel mg2 05/28 20:19 Order name: CBC with Diff mg2 05/28 20:19 Order name: LFT's; Complete Time: 21:13 mg2 05/28 20:19 Order name: Magnesium; Complete Time: 21:13 mg2 05/28 20:19 Order name: NT PRO-BNP; Complete Time: 21:13 mg2 05/28 20:19 Order name: PT-INR; Complete Time: 20:57 mg2 05/28 20:19 Order name: Troponin (emerg Dept Use Only); Complete Time: 21:13 [facility] 05/28 20:19 Order name: XRAY Chest (1 view) [facility] 05/28 20:20 Order name: Basic Metabolic Panel; Complete Time: 21:13 EDIN 05/28 20:20 Order name: CBC with Automated Diff; Complete Time: 20:57 EDIN 05/28 20:57 Order name: COVID-19 : Document "Date of Symptom Onset" if Symptomatic. [facility] 05/28 22:45 Order name: Urine Dipstick--Ancillary (enter results) [facility] 05/28 22:53 Order name: Urine Culture [facility] 05/28 23:47 Order name: SARS-COV-2 RT PCR [facility] 05/28 20:19 Order name: EKG; Complete Time: 20:21 [facility] 05/28 20:19 Order name: Cardiac monitoring; Complete Time: 20:19 [facility] 05/28 20:19 Order name: EKG - Nurse/Tech; Complete Time: 20:20 [facility] 05/28 20:19 Order name: IV Saline Lock; Complete Time: 20:20 [facility] 05/28 20:19 Order name: Labs collected and sent; Complete Time: 20:20 [facility] 05/28 20:19 Order name: O2 Per Protocol; Complete Time: 20:20 [facility] 05/28 20:19 Order name: O2 Sat Monitoring; Complete Time: 20:20 [facility] 05/28 20:26 Order name: Urine Dipstick-Ancillary (obtain specimen); Complete Time: 22:40 [facility] 05/28 20:26 Order name: CT Abd/Pelvis - Without Contrast; Complete Time: 21:13 [facility] EC:31 Rate is 74 beats/min. Rhythm is regular. QRS [place] is Normal. MS interval is normal. QRS anuja interval is normal. QT interval is normal. No Q waves. T waves are Normal. No ST changes noted. Clinical impression: NSR w/ Non-specific ST/T Changes and No evidence of ischemia. Interpreted by me. Reviewed by me. Administered Medications: 20:36 Drug: NS 0.9% 1000 ml Route: IV; Rate: 1 bolus; Site: right forearm; 23:46 Follow up: IV Status: Infusion continued upon admission mg2 22:41 Drug: Rocephin - (cefTRIAXone) 1 grams Route: IVPB; Infused Over: 30 mins; Site: right wh forearm; 23:47 Follow up: Response: No adverse reaction; IV Status: Completed infusion mg2 22:43 Drug: Flagyl 500 mg Volume: 100 ml; Route: IVPB; Rate: 200 ml/hr; Infused Over: 30 wh mins; Site: right forearm; 23:47 Follow up: Response: No adverse reaction; IV Status: Completed infusion; IV Intake: mg2 100ml Disposition: 05/28/20 21:19 Hospitalization ordered by Adrienne Jacobs for Inpatient Admission. 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 - Bed requested for Telemetry/MedSurg (Inpatient). - Status is Inpatient Admission. mg2 - Condition is Fair. - Problem is new. - Symptoms have improved. Signatures: Dispatcher [employer] EDIN Edvin Barros MD MD cha Garcia, Cindy, RN RN Gil Cade RN RN Wolf Whittaker RN RN mg2 Corrections: (The following items were deleted from the chart) 22:51 21:19 Hospitalization Ordered by Adrienne Jacobs MD for Inpatient Admission. 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 Bed requested for Telemetry/MedSurg (Inpatient). Status is Inpatient Admission. Condition is Fair. Problem is new. Symptoms have improved. [facility] 22:53 22:51 05/28/2020 21:19 Hospitalization Ordered by Adrienne Jacobs MD for Inpatient cg Admission. 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 Bed requested for Telemetry/MedSurg (Inpatient). Status is Inpatient Admission. Condition is Fair. Problem is new. Symptoms have improved. [facility] 05/29 00:04 05/28 22:53 05/28/2020 21:19 Hospitalization Ordered by Adrienne Jacobs MD for Inpatient mg2 Admission. 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 Bed requested for Telemetry/MedSurg (Inpatient). Status is Inpatient Admission. Condition is Fair. Problem is new. Symptoms have improved. cg
--- NOTE | 2020-05-28 21:20 | ER ---
Nurse's Notes [facility] Name: Selvin Florentino Age: 85 yrs Sex: Male : 1935 Arrival Date: 05/28/2020 Time: 20:08 Bed 4 Private MD: Diagnosis: Constipation-FECAL IMPACTION;Left sided colitis with complications-STERCORAL COLITIS;Ventricular tachycardia-NON SUSTAINED, REPORTED, TREATED 150MG AMIODARONE;Urinary tract infection, site not specified Presentation: 05/28 20:08 Chief complaint: EMS states: Pt has not had a bowel movement for 5 days and gave wh him a stool softener. Now Pt wont stop having diarrhea per . Pt per EMS is lethargic but arousable. Per EMS PT had a bout of Vtach non sustained and was Given Amiodarone 150 en route. Coronavirus screen: Client denies travel out of the [place] in the last 14 days. At this time, the client does not indicate any symptoms associated with coronavirus-19. Ebola Screen: Patient negative for fever greater than or equal to 101.5 degrees Fahrenheit, and additional compatible Ebola Virus Disease symptoms Patient denies exposure to infectious person. Initial Sepsis Screen: Does the patient meet any 2 criteria? No. Patient's initial sepsis screen is negative. Does the patient have a suspected source of infection? No. Patient's initial sepsis screen is negative. Risk Assessment: Do you want to hurt yourself or someone else? Patient reports no desire to harm self or others. Onset of symptoms was May 28, 2020. Care prior to arrival: Medication(s) given: Normal saline infusion, Amiodarine 150 mg IV initiated. 18 GA, in the right forearm, Glucose check: 198. 20:08 Method Of Arrival: EMS: [facility] 20:08 Acuity: TRACI 3 Triage Assessment: 23:51 General: Appears in no apparent distress. comfortable, Behavior is calm, cooperative. mg2 Historical: - Allergies: 20:15 No Known Allergies; wh - Home Meds: 20:15 tamsulosin 0.4 mg oral cp24 1 cap once daily [Active]; atorvastatin 20 mg oral tab 1 wh tab once daily [Active]; metformin 500 mg oral tab 1 tab daily [Active]; metoprolol tartrate 100 mg Oral tab .5 tab 2 times per day [Active]; aspirin 81 mg Oral TbEC 1 tab once daily [Active]; lisinopril 2.5 mg Oral tab 1 tab as needed [Active]; turmeric curcumin 500 mg daily [Active]; magnesium 500 mg daily Oral [Active]; potassium 99 mg daily [Active]; Folic acid 800 mcg daily [Active]; B-12 1000 mcg daily [Active]; Cinnamon 1000 mg daily Oral [Active]; - PMHx: 20:15 Diabetes - NIDDM; Hypertension; neuropathy; Urinary incontinence; - Immunization history:: Adult Immunizations unknown. - Social history:: Smoking status: unknown. Screenin:16 Abuse screen: Denies threats or abuse. Denies injuries from another. Nutritional screening: No deficits noted. Tuberculosis screening: No symptoms or risk factors identified. Fall Risk Secondary diagnosis (15 points) impaired mobility. Assessment: 20:30 General: Appears in no apparent distress. comfortable. Pain: Denies pain. Neuro: Level mg2 of Consciousness is awake, alert, obeys commands, Oriented to person, place, time, situation. Cardiovascular: Capillary refill < 3 seconds Patient's skin is warm and dry. Respiratory: Airway is patent. GI: Reports diarrhea. : No signs and/or symptoms were reported regarding the genitourinary system. EENT: No signs and/or symptoms were reported regarding the EENT system. Derm: Skin is intact, Skin is pink, warm \T\ dry. Musculoskeletal: Circulation, motion, and sensation intact. Capillary refill < 3 seconds. 22:00 Reassessment: Patient appears in no apparent distress at this time. No changes from previously documented assessment. Patient and/or family updated on plan of care and expected duration. Pain level reassessed. 23:30 Reassessment: Patient appears in no apparent distress at this time. Patient and/or family updated on plan of care and expected duration. Pain level reassessed. Vital Signs: 20:08 BP 139 / 81; Pulse 72; Resp 20; Temp 97.8; Pulse Ox 94% on 2 lpm NC; 22:00 BP 168 / 82; Pulse 82; Resp 18; Pulse Ox 95% on 1 lpm NC; 05/29 00:00 BP 159 / 100; Pulse 74; Resp 18; Pulse Ox 95% on 1 lpm NC; ED Course: 05/28 20:00 Maintain EMS IV. Dressing intact. Site clean \T\ dry. 20:08 Patient arrived in ED. 20:12 Triage completed. 20:12 Edvin Barros MD is Attending Physician. [facility] 20:18 Wolf Whittaker, RN is Primary Nurse. mg2 20:30 Arm band placed on right wrist. 20:44 XRAY Chest (1 view) In Process Unspecified. EDMS 20:48 CT Abd/Pelvis - Without Contrast In Process Unspecified. EDMS 21:00 Inserted saline lock: 20 gauge in left forearm, using aseptic technique. Blood mg2 collected. 21:16 Adrienne Jacobs MD is Hospitalizing Provider. [facility] 22:00 Ana Cristina Their patinent's . mw2 23:51 Patient has correct armband on for positive identification. Door closed. mg2 23:51 No provider procedures requiring assistance completed. mg2 05/29 00:04 Patient admitted, IV remains in place. Administered Medications: 05/28 20:36 Drug: NS 0.9% 1000 ml Route: IV; Rate: 1 bolus; Site: right forearm; 23:46 Follow up: IV Status: Infusion continued upon admission mg2 22:41 Drug: Rocephin - (cefTRIAXone) 1 grams Route: IVPB; Infused Over: 30 mins; Site: right forearm; 23:47 Follow up: Response: No adverse reaction; IV Status: Completed infusion mg2 22:43 Drug: Flagyl 500 mg Volume: 100 ml; Route: IVPB; Rate: 200 ml/hr; Infused Over: 30 wh mins; Site: right forearm; 23:47 Follow up: Response: No adverse reaction; IV Status: Completed infusion; IV Intake: mg2 100ml Intake: 23:47 IV: 100ml; Total: 100ml. mg2 Outcome: 21:19 Decision to Hospitalize by Provider. [facility] 05/29 00:03 Admitted to Med/surg accompanied by tech, via wheelchair, room 216, with oxygen, with chart, Report called to Maria Teresa Snowden RN Condition: stable Instructed on the need for admit. 00:04 Patient left the ED. mg2 Signatures: Dispatcher [employer] EDMN Edvin Barros MD MD cha Habalo, Winsy RN RN Dory Sinha 2 Wolf Whittaker, RN RN mg2 Corrections: (The following items were deleted from the chart) 00:02 05/28 22:00 Reassessment: Patient appears in no apparent distress at this time. No wh changes from previously documented assessment. Patient and/or family updated on plan of care and expected duration. Pain level reassessed. Patient is alert, oriented x 3, equal unlabored respirations, skin warm/dry/pink. wh
--- NOTE | 2020-05-28 22:43 | P.HP ---
Certification for Inpatient Patient admitted to: Observation With expected LOS: <2 Midnights Patient will require the following post-hospital care: Home Health Services Practitioner: I am a practitioner with admitting privileges, knowledge of patient current condition, hospital course, and medical plan of care. Services: Services provided to patient in accordance with Admission requirements found in Title 42 Section 412.3 of the Code of Federal Regulations <Kam Flaherty - Last Filed: 05/29/20 06:42> Patient History Date of Service: 05/29/20 Primary Care Provider: Dr. Carlisle Reason for admission: fecal impaction, stercoral colitis History of Present Illness: Mr. Florentino is an 85 yo male with HTN, DM here today with 5 days of constipation now with diarrhea and weakness. Today, his said his stomach was beginning to feel hard and she could feel the hard stool in his rectum but could not remov e it so she gave a suppository then a laxative. He started having profuse diarrhea (6 episodes) so she called EMS. Positive for anorexia, weakness, nausea. Denies fever, night sweats, chills, chest pain, palpitations, SOB, melena, hematochezia. On the way to the hospital he had an episode of nonsustained VT and was given 150 of amio. Now stable, no electrolyte abnormalities, h/o aortic stent, EF of 74% in 04/2019. CT scan shows marked fecal impaction in the rectosigmoid colon with evidence of stercoral colitis. WBC 6.9. Hgb 11.1. Plt 231. Na 142. K 3.6. Cl 112. HCO3 23. BUN 23. Cr 0.74. Glu 146. - Past Medical/Surgical History Diabetic: Yes -: diabetes -: HLD -: GERD -: HTN -: neuropathy -: urinary incontinence -: Aortic Stent -: Hernia repair -: appendectomy -: Cholecystectomy - Family History Father -: Hypertension, Diabetes, Other (see notes) Notes: Urinary incontinence - Social History Smoking Status: Former smoker Alcohol use: No CD- Drugs: No Caffeine use: Yes Place of Residence: Home <ReynoldKam - Last Filed: 05/29/20 06:42> Date of Service: 05/28/20 <Adrienne Jacobs - Last Filed: 06/04/20 03:35> Allergies No Known Allergies Allergy (Verified 04/24/19 04:42) Home Medications: Aspirin 81 mg PO DAILY 05/29/20 Atorvastatin Calcium [Lipitor*] 20 mg PO DAILY 05/29/20 Cinnamon Bark [Cinnamon] 1,000 mg PO DAILY 05/29/20 Cyanocobalamin (Vitamin B-12) [B-12] 1,000 mcg PO DAILY 05/29/20 Folate 800 mcg PO DAILY 05/29/20 Lisinopril [Zestril] 2.5 mg PO PRN PRN 05/29/20 Magnesium Oxide [Magnesium] 400 mg PO DAILY 05/29/20 Metformin HCl [Glucophage*] 500 mg PO BID 05/29/20 Metoprolol Tartrate [Lopressor*] 50 mg PO BID 05/29/20 Potassium Gluconate [Potassium] 99 mg PO DAILY 05/29/20 Tamsulosin HCl 0.4 mg PO DAILY 05/29/20 Turmeric 400 mg PO DAILY 05/29/20 Ubidecarenone [Co Q-10] 100 mg PO DAILY 05/29/20 Cefdinir [Omnicef] 300 mg PO BID #14 capsule 05/30/20 Glucerna Shake [Glucerna*] 237 ml PO BID #60 can 05/30/20 Kiel [Kiel*] 1 pkt PO BID #60 powd.pack 05/30/20 Review of Systems General: Weakness, As per HPI Eyes: Unremarkable ENT: Nose Congestion, As per HPI Respiratory: Unremarkable Cardiovascular: Unremarkable Gastrointestinal: Nausea, Diarrhea, Constipation, As per HPI Genitourinary: Unremarkable (urinary incontinence at baseline) Musculoskeletal: Unremarkable Integumentary: Unremarkable Neurological: Weakness, As per HPI Lymphatics: Unremarkable <Kam Flaherty - Last Filed: 05/29/20 06:42> Physical Examination - Vital Signs Temperature: 97.8 F Blood Pressure: 139/81 Pulse: 72 Respirations: 20 Pulse Ox (%): 94 (2L ) - Physical Exam General: In no apparent distress, Cooperative, Other (able to tell me his name, and that he is in the hospital, but cannot tell me why. could not obtain other history, so called .) HEENT: Atraumatic, Normocephalic, Mucous membr. moist/pink, Sclerae nonicteric Neck: Supple, 2+ carotid pulse no bruit, No Thyromegaly, No LAD Respiratory: Normal air movement Cardiovascular: No edema, Normal pulses, Regular rate/rhythm, Normal S1 S2, No gallops, No rubs, No murmurs Capillary refill: <2 Seconds Gastrointestinal: Normal bowel sounds, Soft and benign, Non-distended, No ascites, No tenderness, No masses, No rebound, No guarding Musculoskeletal: No clubbing, No swelling, No contractures, No erythema, No tenderness, No warmth Integumentary: No rashes, No breakdown, No significant lesion, No tenderness/swelling, No erythema, No warmth, No cyanosis Neurological: Sensation intact, Abnormal gait, Abnormal speech, Abnormal strength, Abnormal affect Lymphatics: No axilla or inguinal lymphadenopathy - Studies Laboratory Data (last 24 hrs) 05/28/20 20:15: PT 12.7 H, INR 1.10 05/28/20 20:15: WBC 6.90, Hgb 11.1 L, Hct 32.9 L, Plt Count 231 05/28/20 20:15: Sodium 142, Potassium 3.6, BUN 23 H, Creatinine 0.74, Glucose 146 H, Magnesium 2.0, Total Bilirubin 0.6, AST 10 L, ALT 21, Alkaline Phosphatase 73 <Kam Flaherty - Last Filed: 05/29/20 06:42> Assessment and Plan - Problems (Diagnosis) (1) Fecal impaction Status: Acute Plan: mineral oil enema, polyethylene glycol. (2) BPH (benign prostatic hyperplasia) Status: Chronic Plan: continue with home medications Qualifiers: Lower urinary tract symptom presence: unspecified whether lower urinary tract symptoms present Qualified Code(s): N40.0 - Benign prostatic hyperplasia without lower urinary tract symptoms (3) Diabetes mellitus Onset Date: 01/19/17 Status: Chronic Plan: sliding scale insulin with q6hr checks Qualifiers: Diabetes mellitus type: type 2 Diabetes mellitus ferry [place] supervisor insulin use: without ferry terminal supervisor use Diabetes mellitus complication status: without complication Qualified Code(s): E11.9 - Type 2 diabetes mellitus without complications (4) HTN (hypertension) Onset Date: 01/19/17 Status: Chronic Plan: stable, continue with home medications. per EMS, nonsustained VT on the way to the hospital. will obtain EKG, continue telemetry. Qualifiers: Hypertension type: essential hypertension Qualified Code(s): I10 - Essential (primary) hypertension (5) Hyperlipidemia Status: Chronic Plan: stable, continue with home medications Qualifiers: Hyperlipidemia type: unspecified Qualified Code(s): E78.5 - Hyperlipidemia, unspecified (6) Generalized weakness Onset Date: 09/27/17 Status: Chronic Plan: patient received fluids in the ER. patient appears dehydrated. per , patient has soft diet at home and takes home medications. appears weak at bedside, not sure how close to baseline. will obtain swallow study, dietary consult. PT/OT to evaluate patient since last admission, patient would likely benefit from a SNF. Discharge Plan: Residential Plan to discharge in: 48 Hours - Advance Directives Does patient have a Living Will: No Does patient have a Durable POA for Healthcare: Yes - Code Status/Comfort Care Code Status Assessed: Yes (full code) Critical Care: No Time Spent Managing Pts Care (In Minutes): 70 <Kam Flaherty - Last Filed: 05/29/20 06:42> - Problems (Diagnosis) (1) Altered mental status Status: Acute (2) Fecal impaction Status: Acute (3) Toxic encephalopathy Onset Date: 09/27/17 Status: Acute (4) AAA (abdominal aortic aneurysm) Onset Date: 01/19/17 Status: Chronic Qualifiers: Presence of rupture: without rupture (5) CAD (coronary artery disease) Onset Date: 01/19/17 Status: Chronic Qualifiers: Coronary Disease-Associated Artery/Lesion type: [place] artery [place] vs. transplanted heart: [place] heart Associated angina: without angina Qualified Code(s): I25.10 - Atherosclerotic heart disease of [place] coronary artery without angina pectoris (6) Diabetes mellitus Onset Date: 01/19/17 Status: Chronic Qualifiers: Diabetes mellitus type: type 2 Diabetes mellitus residential insulin use: without ferry terminal supervisor use Diabetes mellitus complication status: without complication Qualified Code(s): E11.9 - Type 2 diabetes mellitus without complications (7) Generalized weakness Onset Date: 09/27/17 Status: Chronic (8) HTN (hypertension) Onset Date: 01/19/17 Status: Chronic Qualifiers: Hypertension type: essential hypertension Qualified Code(s): I10 - Essential (primary) hypertension (9) Hyperlipidemia Status: Chronic Qualifiers: Hyperlipidemia type: unspecified Qualified Code(s): E78.5 - Hyperlipidemia, unspecified <Adrienne Jacobs - Last Filed: 06/04/20 03:35> Date of Service: 05/28/20 Patient will be admitted to the hospital and treated with bowel regimen to help with is impaction. Also continue with antibiotic therapy. Physical therapy evaluation. Anticipate discharge over the next 24-48 hours. <Adrienne Jacobs - Last Filed: 06/04/20 03:35>
[2020-05-28] MEDS ORDERED: METRONIDAZOLE 500mg IVPB 500 MG/100 ML BAG IV ONE (23:00)
[2020-05-28] MEDS ORDERED: CEFTRIAXONE/SWI 1gm 1 GM/10 ML SYR ONE (23:00)
[2020-05-29] MEDS ORDERED: ACETAMINOPHEN 500 MG TAB PO PRN (00:52)
[2020-05-29] MEDS ORDERED: MINERAL OIL ENEMA 135 ML BTL PR ONE (00:52)
[2020-05-29] MEDS ORDERED: ONDANSETRON 4 MG/2 ML VIAL IV PRN (00:52)
[2020-05-29] MEDS: NA CHLORIDE 0.9% 1,000 ML IV SCH ×2 (01:16→21:54)
[2020-05-29 01:23] LABS: Urine Appearance CLOUDY; Urine Bilirubin NEGATIVE (NEG); Urine Blood 1+ (NEG); Urine Color YELLOW; Urine Glucose NEGATIVE (NEG); Urine Protein 1+ (NEG); Urine Specific Gravity 1.025 (1.005-1.030); Urine Urobilinogen 0.2 mg/dL (0.2-1.0); Urine pH 5.5 (5.0-7.0)
[2020-05-29 01:26] LABS: Urine Microscopic Reflex ORDER UMIC
[2020-05-29 01:34] VITALS: BMI 21.9
[2020-05-29 02:23] LABS: Urine Blood 2+ (NEG); Urine Glucose NEGATIVE (NEG); Urine Protein 1+ (NEG); Urine Specific Gravity 1.025 (1.005-1.030); Urine pH 5.5 (5.0-7.0)
[2020-05-29 03:50] LABS: Urine Bacteria >50 /HPF (NONE SEEN); Urine RBC <5 /HPF (NONE SEEN); Urine Urothelial Cells <5 /HPF (NONE SEEN)
[2020-05-29 04:36] LABS: Absolute Lymphocytes (CBC) 1.3 K/uL (0.7-4.9); Basophils % 0.8 % (0-1.3); Hematocrit 34.3 % (39.6-49.0); Lymphocytes % 18.5 % (15.3-44.8); MPV 8.7 fL (7.6-11.3); RBC Red Blood Cell Count 3.63 M/uL (4.33-5.43)
[2020-05-29 04:53] LABS: ALT/SGPT 20 U/L (12-78); AST/SGOT 11 U/L (15-37); Albumin 2.7 g/dL (3.4-5.0); Alkaline Phosphatase 72 U/L (45-117); BUN Blood Urea Nitrogen 20 mg/dL (7-18); Bicarbonate 25 mmol/L (21-32); Bilirubin Total 0.5 mg/dL (0.2-1.0); Glucose Level 123 mg/dL (74-106); NT PRO-BNP 874 pg/mL (<450); Potassium 3.7 mmol/L (3.5-5.1); Protein, Total 5.5 g/dL (6.4-8.2); Sodium Level 144 mmol/L (136-145)
[2020-05-29] MEDS ORDERED: KCL 20 MEQ/100 mL IVPB 20 MEQ/100 ML BAG IV SCH (07:00)
--- NOTE | 2020-05-29 07:03 | EKG ---
Test Date: 2020-05-28 Test Time: 20:08:18 Livestock Showman: MEASUREMENT RESULTS: Intervals: Rate: 74 HI: 202 QRSD: 126 QT: 418 QTc: 463 [place]: P: 102 HI: 202 QRS: -22 T: 24 INTERPRETIVE STATEMENTS: Normal sinus rhythm Right bundle branch block T wave abnormality, consider lateral ischemia Abnormal ECG Compared to ECG 04/24/2019 01:52:54 T-wave abnormality now present Possible ischemia now present Ventricular premature complex(es) no longer present First degree AV block no longer present Left-axis deviation no longer present Electronically Signed On 05-29-20 07:02:21 CDT by Johnny Ignacio
[2020-05-29] MEDS: INSULIN -REGULAR HUMAN 50 UNIT/0.5 ML ML SQ SCH ×4 (07:30→21:00)
[2020-05-29] MEDS: TAMSULOSIN 0.4 MG SR CAP PO SCH (09:00)
[2020-05-29] MEDS ORDERED: POLYETHYL GLY 3350 17 GM/DOSE PO ONE (09:00)
[2020-05-29] MEDS: METOPROLOL TAR 50 MG TAB PO SCH ×2 (09:00→21:53)
[2020-05-29] MEDS: ENOXAPARIN 40 MG/0.4 ML SQ SCH (10:01)
[2020-05-30] MEDS ORDERED: lisinopriL 5 MG TAB PO PRN (01:03)
[2020-05-30 04:25] LABS: BUN Blood Urea Nitrogen 12 mg/dL (7-18); Bicarbonate 24 mmol/L (21-32); Glucose Level 104 mg/dL (74-106); Potassium 3.9 mmol/L (3.5-5.1); Sodium Level 138 mmol/L (136-145)
--- NOTE | 2020-05-30 07:20 | EKG ---
Test Date: 2020-05-29 Test Time: 09:17:02 Electrician Front: MANAV MEASUREMENT RESULTS: Intervals: Rate: 68 MI: 200 QRSD: 124 QT: 466 QTc: 495 [place]: P: 64 MI: 200 QRS: -41 T: 25 INTERPRETIVE STATEMENTS: Normal sinus rhythm Left axis deviation Right bundle branch block Septal infarct, age undetermined Abnormal ECG Compared to ECG 05/28/2020 20:08:18 Left-axis deviation now present Myocardial infarct finding now present T-wave abnormality no longer present Possible ischemia no longer present Electronically Signed On 05-30-20 07:18:18 CDT by Johnny Ignacio
[2020-05-30] MEDS: INSULIN -REGULAR HUMAN 50 UNIT/0.5 ML ML SQ SCH ×2 (07:30→11:30)
[2020-05-30] MEDS: TAMSULOSIN 0.4 MG SR CAP PO SCH (08:32)
[2020-05-30] MEDS: METOPROLOL TAR 50 MG TAB PO SCH (08:32)
[2020-05-30] MEDS: ENOXAPARIN 40 MG/0.4 ML SQ SCH (08:33)
[2020-05-30] MEDS ORDERED: INFLUENZA VACCINE (for 3y+) 0.5 ML DOSE IMVAC ONE (09:00)
[2020-05-30 13:10] VITALS: O2SAT 96
[2020-05-30 15:02] VITALS: BP 132/73; TEMP 98.9
[2020-05-30] MEDS ORDERED: JUVEN PACKET PO SCH (21:00)
[2020-05-30] MEDS ORDERED: GLUCERNA SHAKE 237 ML CAN PO SCH (21:00)
--- NOTE | 2020-06-04 03:30 | P.DS ---
Discharge Date: 05/30/20 Primary Care Provider: Dr. Carlisle Disposition: ROUTINE DISCHARGE Discharge Condition: GOOD Reason for Admission: fecal impaction, stercoral colitis Brief History of Present Illness: Mr. Florentino is an 85 yo male with HTN, DM here today with 5 days of constipation now with diarrhea and weakness. Today, his said his stomach was beginning to feel hard and she could feel the hard stool in his rectum but could not remove it so she gave a suppository then a laxative. He started having profuse diarrhea (6 episodes) so she called EMS. Positive for anorexia, weakness, nausea. Denies fever, night sweats, chills, chest pain, palpitations, SOB, melena, hematochezia. On the way to the hospital he had an episode of nonsustained VT and was given 150 of amio. Now stable, no electrolyte abnormalities, h/o aortic stent, EF of 74% in 04/2019. CT scan shows marked fecal impaction in the rectosigmoid colon with evidence of stercoral colitis. WBC 6.9. Hgb 11.1. Plt 231. Na 142. K 3.6. Cl 112. HCO3 23. BUN 23. Cr 0.74. Glu 146. Hospital Course: Patient has done well during hospital stay. Patient is clinically improved. At this time, patient is stable for discharge home. If he does not do well at home family is going to make arrangements for alf facility placement. Vital Signs/Physical Exam: Temp Pulse Resp BP Pulse Ox 98.9 F 60 20 132/73 94 05/30/20 12:00 05/30/20 12:00 05/30/20 12:00 05/30/20 12:00 05/30/20 12:00 General: Alert, In no apparent distress, Demented Laboratory Data at Discharge: WBC 7.10 K/uL (4.3-10.9) 05/29/20 04:11 Hgb 11.1 g/dL (13.6-17.9) L 05/29/20 04:11 Hct 34.3 % (39.6-49.0) L 05/29/20 04:11 Plt Count 215 K/uL (152-406) 05/29/20 04:11 PT 12.7 SECONDS (9.5-12.5) H 05/28/20 20:15 INR 1.10 05/28/20 20:15 Sodium 138 mmol/L (136-145) 05/30/20 03:34 Potassium 3.9 mmol/L (3.5-5.1) 05/30/20 03:34 BUN 12 mg/dL (7-18) 05/30/20 03:34 Creatinine 0.52 mg/dL (0.55-1.3) L 05/30/20 03:34 Glucose 104 mg/dL (74-106) 05/30/20 03:34 Magnesium 2.0 mg/dL (1.8-2.4) 05/28/20 20:15 Total Bilirubin 0.5 mg/dL (0.2-1.0) 05/29/20 04:11 AST 11 U/L (15-37) L 05/29/20 04:11 ALT 20 U/L (12-78) 05/29/20 04:11 Alkaline Phosphatase 72 U/L (45-117) 05/29/20 04:11 Home Medications: Aspirin 81 mg PO DAILY 05/29/20 Atorvastatin Calcium [Lipitor*] 20 mg PO DAILY 05/29/20 Cinnamon Bark [Cinnamon] 1,000 mg PO DAILY 05/29/20 Cyanocobalamin (Vitamin B-12) [B-12] 1,000 mcg PO DAILY 05/29/20 Folate 800 mcg PO DAILY 05/29/20 Lisinopril [Zestril] 2.5 mg PO PRN PRN 05/29/20 Magnesium Oxide [Magnesium] 400 mg PO DAILY 05/29/20 Metformin HCl [Glucophage*] 500 mg PO BID 05/29/20 Metoprolol Tartrate [Lopressor*] 50 mg PO BID 05/29/20 Potassium Gluconate [Potassium] 99 mg PO DAILY 05/29/20 Tamsulosin HCl 0.4 mg PO DAILY 05/29/20 Turmeric 400 mg PO DAILY 05/29/20 Ubidecarenone [Co Q-10] 100 mg PO DAILY 05/29/20 Cefdinir [Omnicef] 300 mg PO BID #14 capsule 05/30/20 Glucerna Shake [Glucerna*] 237 ml PO BID #60 can 05/30/20 Kiel [Kiel*] 1 pkt PO BID #60 powd.pack 05/30/20 New Medications: Glucerna Shake [Glucerna*] 237 ml PO BID #60 can Kiel [Kiel*] 1 pkt PO BID #60 powd.pack Cefdinir [Omnicef] 300 mg PO BID #14 capsule Physician Discharge Instructions: -OK TO DC IV AND DC HOME -FOLLOW-UP WITH PCP IN 1-2 WEEKS -FOLLOW-UP WITH Neurology IN 1-2 WEEKS -PLEASE MAKE SURE ALL DIAGNOSTIC STUDIES ARE AVAILABLE AND HAVE BEEN REVIEWED WITH PATIENT PRIOR TO DISCHARGE -RETURN TO THE ER IF Symptoms worsen -CALL DR. FELIX AT [phone] IF ANY QUESTIONS REGARDING HOSPITAL STAY -PLEASE CALL THE FLOOR AT [phone] IF ANY MEDICATION OR NURSING QUESTIONS Diet: AHA Activity: Fall precautions Followup: Ismael Boykin MD [ASSOCIATE-ACTIVE - CAN ADMIT] - [place] [Primary Care Provider] - Time spent managing pt's care (in minutes): 35
--- NOTE | 2020-06-04 03:33 | P.PN ---
Subjective Date of Service: 05/29/20 Patient doing well with no abdominal pain Review of Systems 10-point ROS is otherwise unremarkable Physical Examination - Vital Signs Temperature: 98.9 F Blood Pressure: 132/73 Pulse: 60 Respirations: 20 Pulse Ox (%): 94 - Physical Exam General: Alert, In no apparent distress, Oriented x3 Respiratory: Clear to auscultation bilaterally, Normal air movement Cardiovascular: Regular rate/rhythm, Normal S1 S2 Gastrointestinal: Normal bowel sounds, Soft and benign, Non-distended, No tenderness Musculoskeletal: No clubbing, No swelling, No tenderness Neurological: Normal strength at 5/5 x4 extr, Sensation intact, Cranial nerves 3-12 intact - Studies Medications List Reviewed: Yes Assessment & Plan - Problems (Diagnosis) (1) Altered mental status Status: Acute (2) Fecal impaction Status: Acute (3) Toxic encephalopathy Onset Date: 09/27/17 Status: Acute (4) AAA (abdominal aortic aneurysm) Onset Date: 01/19/17 Status: Chronic Qualifiers: Presence of rupture: without rupture (5) CAD (coronary artery disease) Onset Date: 01/19/17 Status: Chronic Qualifiers: Coronary Disease-Associated Artery/Lesion type: [place] artery [place] vs. transplanted heart: [place] heart Associated angina: without angina Qualified Code(s): I25.10 - Atherosclerotic heart disease of [place] coronary artery without angina pectoris (6) Diabetes mellitus Onset Date: 01/19/17 Status: Chronic Qualifiers: Diabetes mellitus type: type 2 Diabetes mellitus shelter insulin use: without shelter use Diabetes mellitus complication status: without complication Qualified Code(s): E11.9 - Type 2 diabetes mellitus without complications (7) Generalized weakness Onset Date: 09/27/17 Status: Chronic (8) HTN (hypertension) Onset Date: 01/19/17 Status: Chronic Qualifiers: Hypertension type: essential hypertension Qualified Code(s): I10 - Essential (primary) hypertension (9) Hyperlipidemia Status: Chronic Qualifiers: Hyperlipidemia type: unspecified Qualified Code(s): E78.5 - Hyperlipidemia, unspecified - Plan Plan: 1. Bowel regimen going forward so patient does get impacted again 2. Continue with IV antibiotic therapy 3. Change to oral antibiotics in the morning anticipate either discharge to [facility] facility or discharge home 4. Continue with cardiac medications 5. GI and DVT prophylaxis Discharge Plan: Home Plan to discharge in: Greater than 2 days - Advance Directives Does patient have a Living Will: No Does patient have a Durable POA for Healthcare: Yes - Code Status/Comfort Care Code Status Assessed: Yes Code Status: Full Code Critical Care: No Time Spent Managing PTS Care (In Minutes): 35
== END 2020-05-30 16:37 | disposition home or self-care (01) | DRG 388 ==
LOC: ER 20:06 → ERHOLD 22:18 → 2ND 05-29 00:02 → OBSVTOIN 05-29 22:31
PROVIDERS: ADMIT Hospitalist; ATTEND Hospitalist
DX: K56.41 Fecal impaction (principal); G92 Toxic encephalopathy; I10 Essential (primary) hypertension; I71.4 Abdominal aortic aneurysm, without rupture; I25.10 Atherosclerotic heart disease of native coronary artery without angina pectoris; N40.0 Benign prostatic hyperplasia without lower urinary tract symptoms; K21.9 Gastro-esophageal reflux disease without esophagitis; E78.5 Hyperlipidemia, unspecified; E11.9 Type 2 diabetes mellitus without complications; K52.89 Other specified noninfective gastroenteritis and colitis; Z79.84 Long term (current) use of oral hypoglycemic drugs; Z79.82 Long term (current) use of aspirin; Z79.899 Other long term (current) drug therapy; Z90.49 Acquired absence of other specified parts of digestive tract; Z87.891 Personal history of nicotine dependence; Z20.822 Contact with and (suspected) exposure to COVID-19
CPT/HCPCS: 36415; 71045; 74176; 80048; 80053; 80076; 81003; 81015; 82947; 83735; 83880; 84484; 85025; 85610; 87077; 87086; 87088; 87186; 92610; 93005; 94760; 96361; 96365; 97161; 97530; 99285; G0378; J0696; J1650; J3480; J7030; U0003

== ENCOUNTER 2020-07-02 14:15 | Inpatient (IN) | payer OTHER ==
[2020-07-02 15:04] LABS: Arterial Blood Carboxyhemoglob 1.2 % (0-1.5); Blood Gas Oxyhemoglobin 88.5 % (94-97); Blood O2 Saturation 90.4 % (92-98.5)
[2020-07-02 15:07] LABS: Absolute Lymphocytes (CBC) 1.7 K/uL (0.7-4.9); Basophils % 0.6 % (0-1.3); Hematocrit 46.1 % (39.6-49.0); Lymphocytes % 19.4 % (15.3-44.8); MPV 8.7 fL (7.6-11.3); RBC Red Blood Cell Count 4.94 M/uL (4.33-5.43)
[2020-07-02 15:11] LABS: Protime INR 0.99
[2020-07-02 15:12] LABS: ALT/SGPT 20 U/L (12-78); AST/SGOT 6 U/L (15-37); Albumin 3.3 g/dL (3.4-5.0); Alkaline Phosphatase 94 U/L (45-117); BUN Blood Urea Nitrogen 15 mg/dL (7-18); Bicarbonate 26 mmol/L (21-32); Bilirubin Direct 0.2 mg/dL (0-0.2); Bilirubin Total 0.7 mg/dL (0.2-1.0); CKMB Creatine Kinase MB < 1.0 ng/mL (0.3-3.6); Creatine Phosphokinase 32 U/L (39-308); Glucose Level 160 mg/dL (74-106); Lipase 116 U/L (73-393); Magnesium 1.9 mg/dL (1.8-2.4); NT PRO-BNP 704 pg/mL (<450); Potassium 4.1 mmol/L (3.5-5.1); Protein, Total 7.9 g/dL (6.4-8.2); Sodium Level 137 mmol/L (136-145); Troponin (Emerg Dept Use Only) < 0.02 ng/mL (0.0-0.045)
[2020-07-02] MEDS ORDERED: CEFTRIAXONE/SWI 1gm 1 GM/10 ML SYR ONE (15:13)
[2020-07-02] MEDS ORDERED: NA CHLORIDE 0.9% 100 ML ONE (15:13)
[2020-07-02] MEDS ORDERED: NA CHLORIDE 0.9% 1,000 ML ONE (15:37)
--- NOTE | 2020-07-02 15:52 | ER ---
Nurse's Notes [facility] Name: Selvin Florentino Age: 85 yrs Sex: Male : 1935 Arrival Date: 07/02/2020 Time: 14:20 Bed 3 Private MD: Diagnosis: Pneumonia, unspecified organism;Hypoxemia Presentation: 07/02 14:21 Chief complaint: EMS states: EMS WAS CALLED BY SPOUSE, WHO IS REPORTING PATIENT HAS HAD ap3 AN INCREASE IN WEAKNESS THE LAST THREE DAYS. IT IS ALSO REPORTED THE PATIENT HASN'T HAD A BM FOR 7 DAYS. THE STATES THE PATIENT HAS BEEN HAVING NECK AND LEFT LEG PAIN, AND THAT THE PATIENT HASN'T BEEN WANTING TO EAT. Coronavirus screen: Client denies travel out of the [place] in the last 14 days. Ebola Screen: No symptoms or risks identified at this time. Initial Sepsis Screen:. Initial Sepsis Screen: Does the patient meet any 2 criteria? RR > 20 per min. HR > 90 bpm. Yes Does the patient have a suspected source of infection? No. Patient's initial sepsis screen is negative. If YES to both, name of provider notified: Des Seaman MD Risk Assessment: Do you want to hurt yourself or someone else? Patient reports no desire to harm self or others. Onset of symptoms was June 29, 2020. Transition of care: patient was not received from another setting of care. 14:21 Method Of Arrival: EMS: [facility] ap3 14:21 Acuity: [facility]ACI 2 ap3 14:36 Coronavirus screen: Client presents with at least one sign or symptom that may indicate ap3 coronavirus-19. Triage Assessment: 14:37 General: Appears distressed, uncomfortable, ill, well groomed, Behavior is drowsy. bp Pain: Denies pain. EENT: No deficits noted. Neuro: Level of Consciousness is lethargic, listless, Oriented to person, place. Cardiovascular: Rhythm is atrial fibrillation. Respiratory: No deficits noted. GI: No signs and/or symptoms were reported involving the gastrointestinal system. : No signs and/or symptoms were reported regarding the genitourinary system. Derm: No deficits noted. Musculoskeletal: No deficits noted. Historical: - Home Meds: 14:36 aspirin 81 mg Oral TbEC 1 tab once daily [Active]; atorvastatin 20 mg Oral tab 1 tab ap3 once daily [Active]; B-12 1000 mcg daily [Active]; Cinnamon 1000 mg daily Oral [Active]; Folic acid 800 mcg daily [Active]; lisinopril 2.5 mg Oral tab 1 tab as needed [Active]; magnesium 500 mg daily Oral [Active]; metformin 500 mg Oral tab 1 tab daily [Active]; metoprolol tartrate 100 mg Oral tab 0.5 tab 2 times per day [Active]; potassium 99 mg daily [Active]; tamsulosin 0.4 mg Oral cp24 1 cap once daily [Active]; turmeric curcumin 500 mg daily [Active]; - PMHx: 14:36 Diabetes - NIDDM; Hypertension; neuropathy; Urinary incontinence; ap3 - Immunization history:: Adult Immunizations up to date. - Social history:: Smoking status: Patient denies any tobacco usage or history of. Screenin:38 Abuse screen: Denies threats or abuse. Denies injuries from another. Nutritional bp screening: No deficits noted. Tuberculosis screening: No symptoms or risk factors identified. Fall Risk None identified. Assessment: 14:38 General: SEE TRIAGE NOTE. bp 16:00 Reassessment: No changes from previously documented assessment. Patient and/or family bp updated on plan of care and expected duration. Pain level reassessed. ADMIT INITIATED. 17:00 Reassessment: No changes from previously documented assessment. Patient and/or family bp updated on plan of care and expected duration. Pain level reassessed. ADMIT IN PROCESS. 18:09 Reassessment: ADMIT ON HOLD FOR CT PE, PER HOSPITALIST. bp Vital Signs: 14:21 BP 137 / 84; Pulse 109; Resp 28; Temp 99.2; Pulse Ox 91% on R/A; ap3 14:37 BP 100 / 54; Pulse 106; Resp 34; Pulse Ox 88% on 2 lpm NC; ap3 15:00 BP 137 / 89; Pulse 112; Resp 16; Pulse Ox 92% ; bp 16:00 BP 164 / 65; Pulse 119; Resp 26; Pulse Ox 92% ; bp 17:00 BP 148 / 78; Pulse 63; Resp 28; Pulse Ox 94% ; bp 18:00 BP 119 / 67; Pulse 63; Resp 24; Pulse Ox 94% ; bp ED Course: 14:20 Patient arrived in ED. ap3 14:20 Des Seaman MD is Attending Physician. tw4 14:32 Triage completed. ap3 14:36 Jamie Ortega, RN is Primary Nurse. bp 14:38 Arm band placed on. bp 14:38 Patient has correct armband on for positive identification. Bed in low position. Call bp light in reach. Side rails up X2. 14:38 Inserted saline lock: 20 gauge in right forearm, using aseptic technique. Blood bp collected. 14:40 Inserted saline lock: 20 gauge in left forearm, using aseptic technique. bp 14:57 XRAY CXR (1 view) In Process Unspecified. EDMS 15:49 Levi Cho DO is Hospitalizing Provider. tw4 18:06 No provider procedures requiring assistance completed. Patient admitted, IV remains in bp place. 19:15 Primary Nurse role handed off by Jamie Ortega, RN mw2 Administered Medications: 14:45 Drug: Rocephin (cefTRIAXone) 1 grams Route: IV; Rate: bolus; Site: left forearm; bp 17:27 Follow up: IV Status: Completed infusion; IV Intake: 250ml bp 14:45 CANCELLED (Other Intervention Used): AZITHromycin 500 mg PO once bp 15:00 Drug: AZITHromycin 500 mg Route: IVPB; Infused Over: 1 hrs; Site: left forearm; bp 17:27 Follow up: IV Status: Completed infusion; IV Intake: 250ml bp 15:30 Drug: NS 0.9% 1000 ml Route: IV; Rate: 1 bolus; Site: left forearm; bp 17:27 Follow up: IV Status: Completed infusion; IV Intake: 1000ml bp Intake: 17:27 IV: 250ml; Total: 250ml. bp 17:27 IV: 250ml; Total: 500ml. bp 17:27 IV: 1000ml; Total: 1500ml. bp Outcome: 15:51 Decision to Hospitalize by Provider. tw4 18:06 Admitted to Med/surg accompanied by tech, via stretcher, room 206, with chart, Report bp called to LUIS ENRIQUE REHMAN 18:06 Condition: stable 18:06 Instructed on the need for admit. 19:23 Patient left the ED. ea Signatures: Dispatcher [employer] EDOR Keiry Luciano RN RN ea Peltier, Brian, RN SHERIE bp Des Seaman MD MD tw4 Pamela Harris RN RN ap3 Bharath, Dory mw2
--- NOTE | 2020-07-02 15:52 | EDPHYS ---
Physician Documentation [facility] Name: Selvin Florentino Age: 85 yrs Sex: Male : 1935 Arrival Date: 07/02/2020 Time: 14:20 Bed 3 Private MD: ED Physician Des Seaman HPI: 07/02 15:24 This 85 yrs old Male presents to ER via EMS with complaints of General tw4 Weakness, LETHARGIC. 15:24 The patient presents with generalized weakness. Onset: The symptoms/episode tw4 began/occurred today. Context: occurred at home. Modifying factors: The symptoms are alleviated by nothing, the symptoms are aggravated by nothing. Associated signs and symptoms: The patient has no apparent associated signs or symptoms. Severity of symptoms: At their worst the symptoms were moderate in the emergency department the symptoms are unchanged. The patient has not experienced similar symptoms in the past. Historical: - Home Meds: 14:36 aspirin 81 mg Oral TbEC 1 tab once daily [Active]; atorvastatin 20 mg Oral tab 1 tab ap3 once daily [Active]; B-12 1000 mcg daily [Active]; Cinnamon 1000 mg daily Oral [Active]; Folic acid 800 mcg daily [Active]; lisinopril 2.5 mg Oral tab 1 tab as needed [Active]; magnesium 500 mg daily Oral [Active]; metformin 500 mg Oral tab 1 tab daily [Active]; metoprolol tartrate 100 mg Oral tab 0.5 tab 2 times per day [Active]; potassium 99 mg daily [Active]; tamsulosin 0.4 mg Oral cp24 1 cap once daily [Active]; turmeric curcumin 500 mg daily [Active]; - PMHx: 14:36 Diabetes - NIDDM; Hypertension; neuropathy; Urinary incontinence; ap3 - Immunization history:: Adult Immunizations up to date. - Social history:: Smoking status: Patient denies any tobacco usage or history of. ROS: 15:24 Constitutional: Negative for fever, chills, and weight loss, Eyes: Negative for injury, tw4 pain, redness, and discharge. Exam: 16:22 Head/Face: Normocephalic, atraumatic. Chest/axilla: Normal chest wall appearance and tw4 motion. Nontender with no deformity. No lesions are appreciated. Cardiovascular: Regular rate and rhythm with a normal S1 and S2. No gallops, murmurs, or rubs. Normal PMI, no JVD. No pulse deficits. Respiratory: Lungs have equal breath sounds bilaterally, clear to auscultation and percussion. No rales, rhonchi or wheezes noted. No increased work of breathing, no retractions or nasal flaring. Back: No spinal tenderness. No costovertebral tenderness. Full range of motion. MS/ Extremity: Pulses equal, no cyanosis. Neurovascular intact. Full, normal range of motion. 16:22 Constitutional: The patient appears febrile, frail, lethargic, in obvious distress, mildly distressed, obviously ill. 16:22 Neuro: Orientation: to person, place \T\ time. Mentation: confused, Memory: is normal, Cranial nerves: grossly normal. Vital Signs: 14:21 BP 137 / 84; Pulse 109; Resp 28; Temp 99.2; Pulse Ox 91% on R/A; ap3 14:37 BP 100 / 54; Pulse 106; Resp 34; Pulse Ox 88% on 2 lpm NC; ap3 15:00 BP 137 / 89; Pulse 112; Resp 16; Pulse Ox 92% ; bp 16:00 BP 164 / 65; Pulse 119; Resp 26; Pulse Ox 92% ; bp 17:00 BP 148 / 78; Pulse 63; Resp 28; Pulse Ox 94% ; bp 18:00 BP 119 / 67; Pulse 63; Resp 24; Pulse Ox 94% ; bp MDM: 15:51 Patient medically screened. tw4 16:22 Differential diagnosis: cardiac arrhythmia, hypovolemia, idiopathic dizziness, tw4 near-syncope, TIA. Data reviewed: vital signs, nurses notes. Data reviewed: lab test result(s), cardiac enzymes, CBC, electrolytes, hepatic panel, EKG, radiologic studies, plain films. Data interpreted: Pulse oximetry: Interpretation: normal. Test interpretation: by ED physician or midlevel provider: ECG, plain radiologic studies. Counseling: I had a detailed discussion with the patient and/or guardian regarding: the historical points, exam findings, and any diagnostic results supporting the discharge/admit diagnosis. Physician consultation: Levi Cho DO regarding admission, to the telemetry unit. consult, and will see patient in ED. 07/02 14:21 Order name: Blood Culture Adult (2) tw4 07/02 14:21 Order name: BMP; Complete Time: 15:17 07/02 15:17 Interpretation: Normal except: GFR 76; GLUC 160. 07/02 14:21 Order name: CBC with Diff; Complete Time: 15:42 07/02 14:21 Order name: Ckmb; Complete Time: 15:17 07/02 15:21 Interpretation: Within normal limits: CKMB < 1.0. 07/02 14:21 Order name: CPK; Complete Time: 15:17 07/02 15:17 Interpretation: Normal except: CPK 32. 07/02 14:21 Order name: D-Dimer; Complete Time: 15:42 07/02 14:21 Order name: Hepatic Function; Complete Time: 15:17 07/02 15:17 Interpretation: Normal except: A/G 0.7; GLOB 4.6; ALB 3.3; AST 6. 07/02 14:21 Order name: Lipase; Complete Time: 15:17 07/02 15:21 Interpretation: Within normal limits: LIP 116. 07/02 14:21 Order name: Magnesium; Complete Time: 15:17 07/02 15:21 Interpretation: Within normal limits: MG 1.9. 07/02 14:21 Order name: NT PRO-BNP; Complete Time: 15:17 07/02 15:17 Interpretation: Abnormal: NT PRO-BNP 704. 07/02 14:21 Order name: PT-INR; Complete Time: 15:42 07/02 14:21 Order name: Ptt, Activated; Complete Time: 15:42 07/02 14:21 Order name: Troponin (emerg Dept Use Only); Complete Time: 15:17 07/02 15:21 Interpretation: Within normal limits: TROPED < 0.02. 07/02 14:21 Order name: XRAY CXR (1 view); Complete Time: 17:50 07/02 14:21 Order name: EKG; Complete Time: 14:22 07/02 14:21 Order name: Cardiac monitoring; Complete Time: 14:42 07/02 14:21 Order name: EKG - Nurse/Tech; Complete Time: 14:42 07/02 14:21 Order name: IV Saline Lock; Complete Time: 14:42 tw4 07/02 14:21 Order name: Labs collected and sent; Complete Time: 14:42 tw4 07/02 14:21 Order name: O2 Per Protocol; Complete Time: 14:42 tw4 07/02 14:31 Order name: ABG; Complete Time: 15:42 tw4 07/02 14:45 Order name: Lactate; Complete Time: 15:42 bp 07/02 14:54 Order name: Glucose, Ancillary Testing; Complete Time: 15:17 EDMS 07/02 15:17 Interpretation: Normal except: GLUC,ANCIL 163. tw4 07/02 16:11 Order name: SARS-COV-2 RT PCR; Complete Time: 17:50 EDMS 07/02 17:57 Order name: CT Chest For PE Angio la1 07/02 14:21 Order name: O2 Sat Monitoring; Complete Time: 14:42 tw4 Administered Medications: 14:45 Drug: Rocephin (cefTRIAXone) 1 grams Route: IV; Rate: bolus; Site: left forearm; bp 17:27 Follow up: IV Status: Completed infusion; IV Intake: 250ml bp 14:45 CANCELLED (Other Intervention Used): AZITHromycin 500 mg PO once bp 15:00 Drug: AZITHromycin 500 mg Route: IVPB; Infused Over: 1 hrs; Site: left forearm; bp 17:27 Follow up: IV Status: Completed infusion; IV Intake: 250ml bp 15:30 Drug: NS 0.9% 1000 ml Route: IV; Rate: 1 bolus; Site: left forearm; bp 17:27 Follow up: IV Status: Completed infusion; IV Intake: 1000ml bp Disposition: 07/02/20 15:51 Hospitalization ordered by Levi Cho for Inpatient Admission. Preliminary diagnosis are Pneumonia, unspecified organism, Hypoxemia. - Bed requested for Telemetry/MedSurg (Inpatient). - Status is Inpatient Admission. ea - Condition is Stable. - Problem is new. - Symptoms have improved. Signatures: Dispatcher [employer] EDVT Maryjane Doshi RN RN dw Attema, Lee, HEATER ENGINEER HELPER-C HEATER ENGINEER HELPER-Cla1 Keiry Luciano RN RN ea Davies, Jonathon, RN RN jd3 Peltier, Brian, RN RN bp Wadley, Terrence, MD MD tw4 Pamela Harris RN RN ap3 Corrections: (The following items were deleted from the chart) 14:45 14:31 AZITHromycin 500 mg PO once ordered. tw4 bp 15:18 14:30 CORONAVIRUS+MR.LAB.BRZ ordered. EDVT EDMS 15:51 15:51 Hospitalization Ordered by Levi Cho DO for Inpatient Admission. Preliminary tw4 diagnosis is Pneumonia, unspecified organism. Bed requested for Telemetry/MedSurg (Inpatient). Status is Inpatient Admission. Condition is Stable. Problem is new. Symptoms have improved. tw4 16:34 15:51 07/02/2020 15:51 Hospitalization Ordered by Levi Cho DO for Inpatient dw Admission. Preliminary diagnosis is Pneumonia, unspecified organism; Hypoxemia. Bed requested for Telemetry/MedSurg (Inpatient). Status is Inpatient Admission. Condition is Stable. Problem is new. Symptoms have improved. tw4 19:23 16:34 07/02/2020 15:51 Hospitalization Ordered by Levi Cho DO for Inpatient ea Admission. Preliminary diagnosis is Pneumonia, unspecified organism; Hypoxemia. Bed requested for Telemetry/MedSurg (Inpatient). Status is Inpatient Admission. Condition is Stable. Problem is new. Symptoms have improved. dw
[2020-07-02] MEDS ORDERED: AZITHROMYCIN IV 500 MG in NA CHLORIDE 0.9% 250 ML IVPB ONE (16:00)
--- NOTE | 2020-07-02 16:01 | RAD REPORT ---
EXAM DESCRIPTION: RAD - Chest Single View - 07/02/2020 3:00 pm CLINICAL HISTORY: SOB COMPARISON: Portable May 28, 2020 TECHNIQUE: AP portable chest image was obtained 07/02/2020 3:00 pm . FINDINGS: Baseline interstitial fibrotic changes are present. Patchy interstitial and alveolar opaci ties are present in the mid right lung field and in the medial right base. Mid right lung field findi ngs are slightly more prominent than comparison. A mild or early pneumonia is possible and can be cor related with clinical presentation. Elsewhere the lung markings are not substantially different. Heart size is accentuated by patient rotation. No measurable pleural effusion and no pneumothorax. N o acute bony abnormality seen. No acute aortic findings suspected. IMPRESSION: Questionable early pneumonia changes in the mid right lung field. Correlation is needed with clinical presentation.
--- NOTE | 2020-07-02 16:38 | P.HP ---
Certification for Inpatient Patient admitted to: Inpatient With expected LOS: >2 Midnights Patient will require the following post-hospital care: None Practitioner: I am a practitioner with admitting privileges, knowledge of patient current condition, hospital course, and medical plan of care. Services: Services provided to patient in accordance with Admission requirements found in Title 42 Section 412.3 of the Code of Federal Regulations Patient History Date of Service: 07/02/20 Reason for admission: Generalized weakness History of Present Illness: Patient is an 85 year old male with a PMHx significant for DM 2 with Neuropathy, HTN , urinary incontinence, HLD who presents with c\o of generalized weakness that has been ongoing for the past 1 week per spouse report. Patient reported associated s\s of fatigue, sob, cough , loss of appetite and neck pain. Patient is unable to quantify or describe neck pain. Pt\Spouse denies any fall or trauma . Patient denies any other s\s. Symptoms are aggravated or relieved by nothing. Patient decided to present to the hospital due to worsening symptoms. Allergies No Known Allergies Allergy (Verified 07/02/20 19:45) Home medications list reviewed: Yes Home Medications: Aspirin 81 mg PO DAILY 05/29/20 Atorvastatin Calcium [Lipitor*] 20 mg PO DAILY 05/29/20 Cinnamon Bark [Cinnamon] 1,000 mg PO DAILY 05/29/20 Cyanocobalamin (Vitamin B-12) [B-12] 1,000 mcg PO DAILY 05/29/20 Folate 800 mcg PO DAILY 05/29/20 Lisinopril [Zestril] 2.5 mg PO PRN PRN 05/29/20 Magnesium Oxide [Magnesium] 400 mg PO DAILY 05/29/20 Metformin HCl [Glucophage*] 500 mg PO BID 05/29/20 Metoprolol Tartrate [Lopressor*] 50 mg PO BID 05/29/20 Potassium Gluconate [Potassium] 99 mg PO DAILY 05/29/20 Tamsulosin HCl 0.4 mg PO DAILY 05/29/20 Turmeric 400 mg PO DAILY 05/29/20 Ubidecarenone [Co Q-10] 100 mg PO DAILY 05/29/20 Cefdinir [Omnicef] 300 mg PO BID #14 capsule 05/30/20 Glucerna Shake [Glucerna*] 237 ml PO BID #60 can 05/30/20 Kiel [Kiel*] 1 pkt PO BID #60 powd.pack 05/30/20 - Past Medical/Surgical History Diabetic: Yes -: diabetes -: HLD -: GERD -: HTN -: neuropathy -: urinary incontinence -: Aortic Stent -: Hernia repair -: appendectomy -: Cholecystectomy - Family History Father -: Hypertension, Diabetes, Other (see notes) Notes: Urinary incontinence - Social History Smoking Status: Unknown if ever smoked Alcohol use: No CD- Drugs: No Caffeine use: Yes Review of Systems General: Weakness Eyes: Unremarkable ENT: Nose Pain Respiratory: Cough, Shortness of Breath Cardiovascular: Unremarkable Gastrointestinal: Unremarkable Genitourinary: Unremarkable Musculoskeletal: Neck Pain Integumentary: Unremarkable Neurological: Weakness Lymphatics: Enlarged lymph nodes Physical Examination - Physical Exam General: Alert, Oriented x3 HEENT: Atraumatic, PERRLA, Mucous membr. moist/pink, EOMI, Sclerae nonicteric Neck: Supple, 2+ carotid pulse no bruit, No LAD, Without JVD or thyroid abnormality Respiratory: Diminished, Crackles/rales Cardiovascular: No edema, Normal pulses, Regular rate/rhythm, Normal S1 S2 Capillary refill: <2 Seconds Gastrointestinal: Normal bowel sounds, Non-distended, No tenderness Musculoskeletal: No clubbing, No swelling, No tenderness Integumentary: No rashes, No breakdown, No significant lesion Neurological: Normal gait, Normal speech, Normal strength at 5/5 x4 extr, Normal tone, Normal affect Lymphatics: No axilla or inguinal lymphadenopathy External genitalia: Deferred Rectal: Deferred - Studies Laboratory Data (last 24 hrs) 07/02/20 14:35: PT 11.4, INR 0.99, APTT 27.2 07/02/20 14:35: WBC 9.00, Hgb 15.1, Hct 46.1, Plt Count 315 07/02/20 14:35: Sodium 137, Potassium 4.1, BUN 15, Creatinine 0.94, Glucose 160 H, Magnesium 1.9, Total Bilirubin 0.7, AST 6 L, ALT 20, Alkaline Phosphatase 94, Lipase 116 Assessment and Plan - Plan --Pneumonia. As noted on imaging. Blood cultures pending Patient placed on O2 therapy, Neb TX with albuterol\Atrovent, Antibiotics and steroids --Elevated D-Dimer. CTA PE negative for PE. Continue supportive care --DM 2 with Neuropathy. BS monitoring with s\s insulin. Continue home med for his Neuropathy. --HTN. Poorly uncontrolled. Continue home medication and labetalol prn --Acute pain. Will manage pain with current pain medication regiment. --HLD. Continue home medication --Moderate protein calorie Malnutrition. Color Worker consulted. Will await further recs. --DVT prophylaxis with Heparin subQ Discharge Plan: Home Plan to discharge in: Greater than 2 days - Advance Directives Does patient have a Living Will: No Does patient have a Durable POA for Healthcare: Yes - Code Status/Comfort Care Code Status Assessed: Yes Code Status: Full Code
--- NOTE | 2020-07-02 19:39 | RAD REPORT ---
EXAM DESCRIPTION: CT - Chest For Pe Angio - 07/02/2020 7:05 pm CLINICAL HISTORY: Hypoxia COMPARISON: Chest x-ray July 02, 2020 TECHNIQUE: Dynamically enhanced axial 3 mm thick images of the chest were obtained during administra tion of <100> mL Isovue 370 IV contrast. Coronal and oblique reconstruction images were generated and reviewed. Exam utilizes a protocol for optimal evaluation of pulmonary arterial tree. Maximum intensity projections 3D imaging was utilized All CT scans are performed using dose optimization technique as appropriate and may include automated exposure control or mA/KV adjustment according to patient size. FINDINGS: A pulmonary embolus is not seen. The thoracic aortic root is ectatic with an AP diameter of 4.4 centimeters A pleural effusion is not seen. A pericardial effusion is not seen. Moderate right lower lobe opacities probably pneumonia. Mucous is present within the right lower lobe bronchus IMPRESSION: Negative for a pulmonary embolism. Moderate right lower lobe pneumonia
[2020-07-02] MEDS ORDERED: NA CHLORIDE 0.9% 500 ML IV ONE (19:59)
[2020-07-02] MEDS ORDERED: LABETALOL 20 MG/4ML SYRINGE IV PRN ×2 (20:30→22:48)
[2020-07-02] MEDS ORDERED: GLUCAGON 1 MG/VIAL IM PRN (20:30)
[2020-07-02] MEDS ORDERED: HYDROCODONE/APAP 5/325 MG TAB PO PRN (20:30)
[2020-07-02] MEDS ORDERED: ACETAMINOPHEN 325 MG TABLET PO PRN (20:30)
[2020-07-02] MEDS ORDERED: D50W 25 GM/50 ML SYRINGE IV PRN (20:30)
[2020-07-02] MEDS ORDERED: CEFTRIAXONE 1 GM/NS 50 ML 1 GM/50 ML BAG IV SCH (20:30)
[2020-07-02] MEDS ORDERED: ACETAMINOPHEN 500 MG TAB PO PRN (20:30)
[2020-07-02] MEDS ORDERED: ALBUTEROL 2.5 MG/3 ML NEB SOL NEB PRN (20:30)
[2020-07-02] MEDS ORDERED: ONDANSETRON 4 MG (ODT) TAB PO PRN (20:30)
[2020-07-02] MEDS: ALBUTEROL 2.5 MG/3 ML NEB SOL NEB SCH (21:10)
[2020-07-02] MEDS: IPRATROPIUM BROM 0.5MG/2.5ML NEB SCH (21:10)
[2020-07-02] MEDS: INSULIN -REGULAR HUMAN 50 UNIT/0.5 ML ML SQ SCH (21:13)
[2020-07-02 21:20] LABS: Troponin I 0.02 ng/mL (0.0-0.045)
[2020-07-02 21:41] VITALS: BMI 19.0
[2020-07-02] MEDS: METHYLPREDNISOLONE 40 MG INJ IV SCH ×2 (22:45→23:38)
[2020-07-03] MEDS: HEPARIN 5000 UNIT/ML 1 ML VIAL SQ SCH ×3 (01:16→17:05)
[2020-07-03] MEDS: ALBUTEROL 2.5 MG/3 ML NEB SOL NEB SCH (01:25)
[2020-07-03] MEDS: IPRATROPIUM BROM 0.5MG/2.5ML NEB SCH (01:25)
[2020-07-03] MEDS: METHYLPREDNISOLONE 40 MG INJ IV SCH (05:18)
[2020-07-03 05:31] LABS: Absolute Lymphocytes (CBC) 0.3 K/uL (0.7-4.9); Basophils % 0.1 % (0-1.3); Hematocrit 37.5 % (39.6-49.0); Lymphocytes % 2.9 % (15.3-44.8); MPV 8.5 fL (7.6-11.3); RBC Red Blood Cell Count 4.08 M/uL (4.33-5.43)
[2020-07-03 05:46] LABS: Potassium 4.5 mmol/L (3.5-5.1)
[2020-07-03] MEDS ORDERED: ALBUTEROL 2.5 MG/3 ML NEB SOL NEB PRN (05:54)
[2020-07-03] MEDS ORDERED: BENZONATATE 100 MG CAP PO PRN (05:55)
[2020-07-03] MEDS ORDERED: IPRATROPIUM BROM 0.5MG/2.5ML NEB PRN (05:56)
[2020-07-03] MEDS ORDERED: TRAMADOL HCL 50 MG TAB PO PRN (05:56)
[2020-07-03] MEDS: INSULIN -REGULAR HUMAN 50 UNIT/0.5 ML ML SQ SCH ×4 (07:30→21:59)
--- NOTE | 2020-07-03 07:37 | EKG ---
Test Date: 2020-07-02 Test Time: 14:44:40 Comfort Advisor: MIRIAM MEASUREMENT RESULTS: Intervals: Rate: 187 MS: QRSD: 26 QT: 134 QTc: 236 [place]: P: MS: QRS: 127 T: 142 INTERPRETIVE STATEMENTS: Atrial fibrillation with rapid ventricular response with premature ventricular or aberrantly conducted complexes Right ventricular hypertrophy with repolarization abnormality Possible Lateral infarct, age undetermined Abnormal ECG Compared to ECG 05/29/2020 09:17:02 Ventricular premature complex(es) now present Right ventricular hypertrophy now present Early repolarization now present Sinus rhythm no longer present Left-axis deviation no longer present Right bundle-branch block no longer present Myocardial infarct finding still present Electronically Signed On 07-03-20 07:35:13 CDT by Johnny Ignacio
[2020-07-03] MEDS: CINNAMON BARK 500 MG PO SCH (09:00)
[2020-07-03] MEDS: ASPIRIN 81 MG CHEWABLE TABLET PO SCH ×2 (09:00→12:29)
[2020-07-03] MEDS: MAGNESIUM OXIDE 400 MG TAB PO SCH (09:00)
[2020-07-03] MEDS: ATORVASTATIN 20 MG TAB PO SCH ×2 (09:00→12:29)
[2020-07-03] MEDS: CYANOCOBALAMIN 1,000 MCG TAB PO SCH ×2 (09:00→12:29)
[2020-07-03] MEDS: TAMSULOSIN 0.4 MG SR CAP PO SCH ×2 (09:00→12:29)
[2020-07-03] MEDS: FOLIC ACID 1 MG TABLET PO SCH ×2 (09:00→12:29)
[2020-07-03 09:30] LABS: Blood Morphology Comment NOT SEEN (NOT SEEN); Platelet Estimate ADEQ
--- NOTE | 2020-07-03 12:52 | EKG ---
Test Date: 2020-07-02 Test Time: 16:09:05 Shipping Checker: LAINEY MEASUREMENT RESULTS: Intervals: Rate: 123 [place]: QRSD: 106 QT: 334 QTc: 478 [place]: P: OK: QRS: -83 T: 54 INTERPRETIVE STATEMENTS: Atrial fibrillation with rapid ventricular response with premature ventricular or aberrantly conducted complexes Incomplete right bundle branch block Left anterior fascicular block T wave abnormality, consider anterior ischemia Abnormal ECG Compared to ECG 07/02/2020 14:44:40 Incomplete right bundle-branch block now present Left anterior fascicular block now present T-wave abnormality now present Possible ischemia now present Right ventricular hypertrophy no longer present Early repolarization no longer present Myocardial infarct finding no longer present Electronically Signed On 07-03-20 12:52:04 CDT by Johnny Ignacio
--- NOTE | 2020-07-03 15:23 | P.PN ---
Subjective Date of Service: 07/03/20 Chief Complaint: Generalized weakness Subjective: Doing well Physical Examination - Vital Signs Temperature: 97.8 F Blood Pressure: 147/80 Pulse: 84 Respirations: 16 Pulse Ox (%): 99 - Studies Laboratory Data (last 24 hrs) 07/02/20 14:35: PT 11.4, INR 0.99, APTT 27.2 07/02/20 14:35: WBC 9.00, Hgb 15.1, Hct 46.1, Plt Count 315 Assessment & Plan Discharge Plan: Other (Home versus skilled facility) Plan to discharge in: 48 Hours Physician Review Additional Text: Physical exam: Patient alert, cooperative. Currently on 4 L per nasal cannula Heart: Regular rate and rhythm Lungs: Crackles to the bases Abdomen: Soft nontender nondistended Extremities: Good range of motion Impression: Dyspnea secondary to right middle lobe pneumonia with hypoxia Diabetes mellitus type 2 Hypertension Diabetic neuropathy with chronic pain BPH Moderate protein malnutrition Plan: Dyspnea secondary to right middle lobe pneumonia with hypoxia: Continue oxygen to maintain sats above 93%. Continue to wean off. Currently on 3 L per nasal cannula. Encourage incentive spirometer. With physical therapy assess ambulation. Provide medication for cough, congestion. Continue antibiotics. Will recheck chest x-ray tomorrow. Case discussed in detail with patient about the possibility of skilled placement. Will discuss also with family. Await physical therapy recommendations. Patient would benefit with skilled placement at discharge or home health and physical therapy at discharge. Continue DVT prophylaxis. Anticipate improvement over the next 24 to 48 hours. Diabetes mellitus type 2: Continue Accu-Cheks and sliding scale. Will review and possibly restart home medication. Hypertension: Reviewed restart home medication Diabetic neuropathy with chronic pain: Review and restart home education. What physical therapy assess ambulation. Will need to determine his overall needs. BPH: Continue medication Moderate protein malnutrition: We will have dietary address daily needs. Time Spent Managing Pts Care (In Minutes): 55
[2020-07-03] MEDS: AZITHROMYCIN IV 500 MG in NA CHLORIDE 0.9% 250 ML IVPB SCH (16:03)
[2020-07-03] MEDS: METFORMIN HCL 500 MG TAB PO SCH (17:00)
[2020-07-03] MEDS: CEFTRIAXONE/SWI 1gm 1 GM/10 ML SYR IV SCH (17:07)
[2020-07-03] MEDS: METOPROLOL TAR 50 MG TAB PO SCH (21:59)
[2020-07-03] MEDS: GLUCERNA SHAKE 237 ML CAN PO SCH (22:03)
[2020-07-03] MEDS: JUVEN PACKET PO SCH (22:03)
[2020-07-04] MEDS: HEPARIN 5000 UNIT/ML 1 ML VIAL SQ SCH ×3 (01:03→17:04)
[2020-07-04] MEDS: INSULIN -REGULAR HUMAN 50 UNIT/0.5 ML ML SQ SCH ×4 (07:30→21:00)
[2020-07-04] MEDS: CINNAMON BARK 500 MG PO SCH (09:00)
[2020-07-04] MEDS: GLUCERNA SHAKE 237 ML CAN PO SCH ×2 (09:00→21:37)
[2020-07-04] MEDS: MAGNESIUM OXIDE 400 MG TAB PO SCH (09:00)
[2020-07-04] MEDS: JUVEN PACKET PO SCH ×2 (09:00→21:37)
[2020-07-04] MEDS: FOLIC ACID 1 MG TABLET PO SCH (09:37)
[2020-07-04] MEDS: ATORVASTATIN 20 MG TAB PO SCH (09:38)
[2020-07-04] MEDS: CYANOCOBALAMIN 1,000 MCG TAB PO SCH (09:38)
[2020-07-04] MEDS: TAMSULOSIN 0.4 MG SR CAP PO SCH (09:38)
[2020-07-04] MEDS: METFORMIN HCL 500 MG TAB PO SCH ×2 (09:38→18:05)
[2020-07-04] MEDS: METOPROLOL TAR 50 MG TAB PO SCH ×2 (09:38→21:33)
[2020-07-04] MEDS: ASPIRIN 81 MG CHEWABLE TABLET PO SCH (09:39)
--- NOTE | 2020-07-04 11:41 | RAD REPORT ---
EXAM DESCRIPTION: RAD - Chest Pa And Lat (2 Views) - 07/04/2020 11:27 am CLINICAL HISTORY: follow up Pneumonia Chest pain. COMPARISON: Chest Single View dated 07/02/2020; Chest Single View dated 05/28/2020; Chest Single View dated 04/26/2019; Chest Single View dated 04/25/2019 FINDINGS: Emphysematous changes are present throughout the lungs. Left lung base infiltrate pattern appears mildly improved since prior study. The heart is mildly enlarged. No displaced fractures. IMPRESSION: Mild improvement in left lung base infiltrate since prior study.
[2020-07-04] MEDS ORDERED: D50W 25 GM/50 ML VIAL IV PRN (15:00)
--- NOTE | 2020-07-04 15:45 | P.PN ---
Subjective Date of Service: 07/04/20 Chief Complaint: Generalized weakness Subjective: Improving, Doing well Physical Examination - Vital Signs Temperature: 97.3 F Blood Pressure: 111/69 Pulse: 70 Respirations: 18 Pulse Ox (%): 100 Assessment & Plan Discharge Plan: Home Plan to discharge in: 24 Hours Physician Review Additional Text: Physical exam: Patient alert, cooperative. Currently on 4 L per nasal cannula Heart: Regular rate and rhythm Lungs: Crackles to the bases Abdomen: Soft nontender nondistended Extremities: Good range of motion Impression: Dyspnea secondary to right middle lobe pneumonia with hypoxia Diabetes mellitus type 2 Hypertension Diabetic neuropathy with chronic pain BPH Moderate protein malnutrition Plan: Dyspnea secondary to right middle lobe pneumonia with hypoxia: Patient slowly improving. Continue oxygen to maintain sats above 93%. Continue to wean off. Currently on 3 L per nasal cannula. Patient will need to be weaned off oxygen before discharge. Will check echocardiogram to evaluate further. X-ray shows improvement. Encourage incentive spirometer. Continue with physical therapy as sess ambulation. Provide medication for cough, congestion. Continue antibiotics. Patient prefers to go home. This was confirmed with yesterday. Anticipate improvement over the next 24 to 40 hours. Diabetes mellitus type 2: Continue Accu-Cheks and sliding scale. Hypertension: Continue medication we will monitor and adjust Diabetic neuropathy with chronic pain: Continue medication. Continue physical therapy. BPH: Continue medication Moderate protein malnutrition: Continue with dietary recommendation Time Spent Managing Pts Care (In Minutes): 55
[2020-07-04] MEDS: CEFTRIAXONE/SWI 1gm 1 GM/10 ML SYR IV SCH (17:05)
[2020-07-04] MEDS: AZITHROMYCIN IV 500 MG in NA CHLORIDE 0.9% 250 ML IVPB SCH (17:06)
[2020-07-05] MEDS: HEPARIN 5000 UNIT/ML 1 ML VIAL SQ SCH ×2 (00:53→09:06)
[2020-07-05 06:54] LABS: Absolute Lymphocytes (CBC) 1.2 K/uL (0.7-4.9); Basophils % 0.6 % (0-1.3); Hematocrit 34.9 % (39.6-49.0); MPV 8.2 fL (7.6-11.3); RBC Red Blood Cell Count 3.76 M/uL (4.33-5.43)
[2020-07-05 07:10] LABS: BUN Blood Urea Nitrogen 29 mg/dL (7-18); Bicarbonate 27 mmol/L (21-32); Glucose Level 116 mg/dL (74-106); Magnesium 1.9 mg/dL (1.8-2.4); Potassium 3.7 mmol/L (3.5-5.1); Sodium Level 142 mmol/L (136-145)
[2020-07-05] MEDS: INSULIN -REGULAR HUMAN 50 UNIT/0.5 ML ML SQ SCH ×2 (07:30→11:30)
[2020-07-05 08:32] VITALS: TEMP 97.4
[2020-07-05] MEDS: METOPROLOL TAR 50 MG TAB PO SCH (09:00)
[2020-07-05] MEDS: CINNAMON BARK 500 MG PO SCH (09:00)
[2020-07-05] MEDS: ASPIRIN 81 MG CHEWABLE TABLET PO SCH (09:05)
[2020-07-05] MEDS: TAMSULOSIN 0.4 MG SR CAP PO SCH (09:05)
[2020-07-05] MEDS: ATORVASTATIN 20 MG TAB PO SCH (09:05)
[2020-07-05] MEDS: METFORMIN HCL 500 MG TAB PO SCH (09:05)
[2020-07-05] MEDS: FOLIC ACID 1 MG TABLET PO SCH (09:05)
[2020-07-05] MEDS: MAGNESIUM OXIDE 400 MG TAB PO SCH (09:06)
[2020-07-05] MEDS: GLUCERNA SHAKE 237 ML CAN PO SCH (09:06)
[2020-07-05] MEDS: CYANOCOBALAMIN 1,000 MCG TAB PO SCH (09:06)
[2020-07-05] MEDS: JUVEN PACKET PO SCH (09:07)
--- NOTE | 2020-07-05 11:48 | P.PN ---
Subjective Date of Service: 07/05/20 Chief Complaint: Generalized weakness Subjective: Improving (Oxygen decreased to 2 L per nasal cannula.) Physical Examination - Vital Signs Temperature: 97.4 F Blood Pressure: 105/60 Pulse: 75 Respirations: 16 Pulse Ox (%): 98 Assessment & Plan Discharge Plan: Home Plan to discharge in: 48 Hours Physician Review Additional Text: Physical exam: Patient alert, cooperative. Currently on 2 L per nasal cannula Lungs: Crackles to the bases Abdomen: Soft nontender nondistended Extremities: Good range of motion Impression: Dyspnea secondary to right middle lobe pneumonia with hypoxia Diabetes mellitus type 2 Hypertension Diabetic neuropathy with chronic pain BPH Moderate protein malnutrition Plan: Dyspnea secondary to right middle lobe pneumonia with hypoxia: Patient continues to show improvement. Now down to 2 L. Will need to be weaned off oxygen before discharge. Will check echo to evaluate further. Chest x-ray shows improvement. Encourage incentive spirometer. Encourage physical therapy. Continue antibiotic therapy. plans to take patient home with continued home health/ physical therapy and caregiver services. Anticipate improvement over the next 24 hours. Diabetes mellitus type 2: Continue Accu-Cheks and sliding scale. Hypertension: We will decrease metoprolol. Will adjust accordingly. Diabetic neuropathy with chronic pain: Continue medication. Continue physical therapy. BPH: Continue medication Moderate protein malnutrition: Continue with dietary recommendation Time Spent Managing Pts Care (In Minutes): 55
[2020-07-05 13:40] VITALS: BP 121/67
--- NOTE | 2020-07-05 14:23 | P.DS ---
Admission Date: 07/02/20 Discharge Date: 07/05/20 Primary Care Provider: DENTON Disposition: DC HOME/HOME HEALTH CARE Discharge Condition: GOOD Reason for Admission: Generalized weakness Consultations: None Procedures: COVID: Negative CT scan: FINDINGS: A pulmonary embolus is not seen. The thoracic aortic root is ectatic with an AP diameter of 4.4 centimeters A pleural effusion is not seen. A pericardial effusion is not seen. Moderate right lower lobe opacities probably pneumonia. Mucous is present within the right lower lobe bronchus IMPRESSION: Negative for a pulmonary embolism. Moderate right lower lobe pneumonia Follow up CXR: FINDINGS: Emphysematous changes are present throughout the lungs. Left lung base infiltrate pattern appears mildly improved since prior study. The heart is mildly enlarged. No displaced fractures. IMPRESSION: Mild improvement in left lung base infiltrate since prior study. Medical Problem List: Dyspnea secondary to right middle lobe pneumonia with hypoxia Diabetes mellitus type 2 controlled Hypertension Diabetic neuropathy with chronic pain BPH Moderate protein malnutrition Brief History of Present Illness: 85-year-old male presented with increased weakness, cough and congestion. Patient found to have pneumonia. Patient admitted for further evaluation and treatment. Hospital Course: Patient presented with fatigue, dyspnea secondary to right middle lobe pneumonia with hypoxia. Patient was admitted for treatment. Patient required oxygen and IV antibiotic therapy. His condition improved. Patient showed improvement. Patient was able to be weaned off oxygen. At discharge the patient will continue with Augmentin 500 mg 1 pill twice daily for 7 days. Tessalon Perles 100 mg 3 times a day as needed for cough will be provided. Aspiration precaution in place. Education on pneumonia provided. Recommend to recheck chest x-ray in 2 to 4 weeks to monitor resolution. Patient will go home with home health. Patient has assistance at home as well. Patient mainly bedbound. plans to get help with caregiver services. Fall precautions in place. Patient with diabetes mellitus type 2. This is well controlled. Hemoglobin A1c 6.2. At discharge patient will continue with Glucophage 500 mg 1 pill twice daily. Recommend to maintain blood sugar less than 140 fasting and less than 200 after meals. Further adjustment in medication may be considered. Consider decreasing Glucophage to once daily if blood sugars are very well controlled due to his risk of hypoglycemia especially at his age and poor intake. This can be done with the help of his PCP Patient with hypertension. Blood pressure slightly low. His medication was decreased during the course of his stay. At discharge will recommend to continue metoprolol at 25 mg 1 pill twice daily. Recommend to monitor blood pressure daily. Recommend to maintain blood pressure less than 130/80. If blood pressures remain above 140/90 then he is to contact his PCP to consider increasing metoprolol to 50 mg 1 pill twice daily. May need to hold medication if blood pressure less than 110 systolic or heart rate less than 60. Further adjustment in medication can be done by his PCP. Patient with BPH. At discharge patient will continue with Flomax 0.4 mg daily Patient with hyperlipidemia. At discharge patient will continue with Lipitor 20 mg daily. Patient with moderate protein malnutrition. Dietary recommendations addressed. At discharge patient may take Glucerna shake twice daily to help with supplementation. Vital Signs/Physical Exam: Temp Pulse Resp BP Pulse Ox 97.4 F 68 16 121/67 97 07/05/20 12:00 07/05/20 12:00 07/05/20 12:00 07/05/20 12:00 07/05/20 12:00 General: Alert, In no apparent distress, Oriented x3, Cooperative HEENT: Atraumatic Neck: Supple Respiratory: Clear to auscultation bilaterally, Normal air movement Cardiovascular: Normal pulses, Regular rate/rhythm Gastrointestinal: Normal bowel sounds, No tenderness, No masses, No rebound, No guarding Neurological: Normal speech, Normal strength at 5/5 x4 extr, Normal tone, Normal affect, Other (Patient mainly bedbound ) Laboratory Data at Discharge: WBC 8.60 K/uL (4.3-10.9) D 07/05/20 06:41 Hgb 11.5 g/dL (13.6-17.9) L 07/05/20 06:41 Hct 34.9 % (39.6-49.0) L 07/05/20 06:41 Plt Count 272 K/uL (152-406) 07/05/20 06:41 PT 11.4 SECONDS (9.5-12.5) 07/02/20 14:35 INR 0.99 07/02/20 14:35 APTT 27.2 SECONDS (24.3-36.9) 07/02/20 14:35 Sodium 142 mmol/L (136-145) 07/05/20 06:41 Potassium 3.7 mmol/L (3.5-5.1) 07/05/20 06:41 BUN 29 mg/dL (7-18) H 07/05/20 06:41 Creatinine 0.61 mg/dL (0.55-1.3) 07/05/20 06:41 Glucose 116 mg/dL (74-106) H 07/05/20 06:41 Magnesium 1.9 mg/dL (1.8-2.4) 07/05/20 06:41 Total Bilirubin 0.7 mg/dL (0.2-1.0) 07/02/20 14:35 AST 6 U/L (15-37) L 07/02/20 14:35 ALT 20 U/L (12-78) 07/02/20 14:35 Alkaline Phosphatase 94 U/L (45-117) 07/02/20 14:35 Troponin I 0.02 ng/mL (0.0-0.045) 07/02/20 20:48 Triglycerides 59 mg/dL (<150) 07/02/20 20:48 Cholesterol 91 mg/dL (<200) 07/02/20 20:48 HDL Cholesterol 44 mg/dL (40-60) 07/02/20 20:48 Cholesterol/HDL Ratio 2.07 07/02/20 20:48 Lipase 116 U/L (73-393) 07/02/20 14:35 Home Medications: Aspirin 81 mg PO DAILY 05/29/20 Atorvastatin Calcium [Lipitor*] 20 mg PO DAILY 05/29/20 Cinnamon Bark [Cinnamon] 1,000 mg PO DAILY 05/29/20 Cyanocobalamin (Vitamin B-12) [B-12] 1,000 mcg PO DAILY 05/29/20 Folate 800 mcg PO DAILY 05/29/20 Lisinopril [Zestril] 2.5 mg PO PRN PRN 05/29/20 Magnesium Oxide [Magnesium] 500 mg PO DAILY 05/29/20 Metformin HCl [Glucophage*] 500 mg PO BID 05/29/20 Potassium Gluconate [Potassium] 99 mg PO DAILY 05/29/20 Tamsulosin HCl 0.4 mg PO DAILY 05/29/20 Turmeric 500 mg PO DAILY 05/29/20 Amox/Clavulanate [Augmentin 500-125 mg Tab] 500 mg PO BID #14 tab 07/05/20 Benzonatate [Tessalon Perle*] 100 mg PO TID PRN #10 cap 07/05/20 Glucerna Shake [Glucerna*] 237 ml PO BID #60 can 07/05/20 Metoprolol Tartrate [Lopressor*] 25 mg PO BID #60 tab 07/05/20 New Medications: Amox/Clavulanate [Augmentin 500-125 mg Tab] 500 mg PO BID #14 tab Glucerna Shake [Glucerna*] 237 ml PO BID #60 can Metoprolol Tartrate [Lopressor*] 25 mg PO BID #60 tab Benzonatate [Tessalon Perle*] 100 mg PO TID PRN #10 cap PRN Reason: Cough Physician Discharge Instructions: Patient presented with fatigue, dyspnea secondary to right middle lobe pneumonia with hypoxia. Patient was admitted for treatment. Patient required oxygen and IV antibiotic therapy. His condition improved. Patient showed improvement. Patient was able to be weaned off oxygen. At discharge the patient will continue with Augmentin 500 mg 1 pill twice daily for 7 days. Tessalon Perles 100 mg 3 times a day as needed for cough will be provided. Aspiration precaution in place. Education on pneumonia provided. Recommend to recheck chest x-ray in 2 to 4 weeks to monitor resolution. Patient will go home with home health. Patient has assistance at home as well. Patient mainly bedbound. plans to get help with caregiver services. Fall precautions in place. Patient with diabetes mellitus type 2. This is well controlled. Hemoglobin A1c 6.2. At discharge patient will continue with Glucophage 500 mg 1 pill twice daily. Recommend to maintain blood sugar less than 140 fasting and less than 200 after meals. Further adjustment in medication may be considered. Consider decreasing Glucophage to once daily if blood sugars are very well controlled due to his risk of hypoglycemia especially at his age and poor intake. This can be done with the help of his PCP Patient with hypertension. Blood pressure slightly low. His medication was decreased during the course of his stay. At discharge will recommend to continue metoprolol at 25 mg 1 pill twice daily. Recommend to monitor blood pressure daily. Recommend to maintain blood pressure less than 130/80. If blood pressures remain above 140/90 then he is to contact his PCP to consider increasing metoprolol to 50 mg 1 pill twice daily. May need to hold medication if blood pressure less than 110 systolic or heart rate less than 60. Further adjustment in medication can be done by his PCP. Patient with BPH. At discharge patient will continue with Flomax 0.4 mg daily Patient with hyperlipidemia. At discharge patient will continue with Lipitor 20 mg daily. Patient with moderate protein malnutrition. Dietary recommendations addressed. At discharge patient may take Glucerna shake twice daily to help with supplementation. Diet: ADA Activity: Bedrest Followup: DENTON CHAWLA [Primary Care Provider] - Time spent managing pt's care (in minutes): 55
[2020-07-05 16:04] VITALS: O2SAT 96
[2020-07-05] MEDS ORDERED: METOPROLOL TAR 25 MG TAB PO SCH (21:00)
[2020-07-06] MEDS ORDERED: AZITHROMYCIN 250 MG TAB PO SCH (09:00)
--- NOTE | 2020-07-08 08:22 | ECHO ---
HEIGHT: 6 ft 2 in WEIGHT: 148 lb 0 oz DATE OF STUDY: 07/05/[address]: Levi Cho DO 2-DIMENSIONAL: YES M.MODE: YES DOPPLER: YES COLOR FLOW: YES TDS: YES PORTABLE: NO DEFINITY: NO BUBBLE STUDY: NO DIAGNOSIS: SHORTNESS OF BREATH, EVALUATE FOR CONESTIVE HEART FAILURE CARDIAC HISTORY: CATHERIZATION: SURGERY: PROSTHETIC VALVE: PACEMAKER: MEASUREMENTS (cm) DIASTOLIC (NORMALS) SYSTOLIC (NORMALS) IVSd (0.6-1.2) LA Diam (1.9-4.0) LVEF % LVIDd (3.5-5.7) LVIDs (2.0-3.5) %FS % LVPWd (0.6-1.2) Ao Diam (2.0-3.7) 2 DIMENSIONAL ASSESSMENT: RIGHT ATRIUM: NORMAL LEFT ATRIUM: NORMAL RIGHT VENTRICLE: NORMAL LEFT VENTRICLE: NORMAL TRICUSPID VALVE: NORMAL MITRAL VALVE: NORMAL PULMONIC VALVE: NORMAL AORTIC VALVE: NORMAL PERICARDIAL EFFUSION: NONE AORTIC ROOT: NORMAL LEFT VENTRICULAR WALL MOTION: NORMAL DOPPLER/COLOR FLOW: NORMAL COMMENTS: VERY TECHNICALLY DIFFICULT STUDY. GROSSLY NORMAL LEFT VENTRICULAR SIZE AND FUNCTION. NO EFFUSION. TECHNOLOGIST: Brad PIKE
== END 2020-07-05 16:20 | disposition home health service (06) | DRG 194 ==
LOC: ER 14:15 → ERHOLD 16:26 → 2ND 18:02
PROVIDERS: ADMIT Family Medicine; ATTEND Family Medicine
DX: J18.9 Pneumonia, unspecified organism (principal); E44.0 Moderate protein-calorie malnutrition; Z68.1 Body mass index [BMI] 19.9 or less, adult; I48.0 Paroxysmal atrial fibrillation; N40.0 Benign prostatic hyperplasia without lower urinary tract symptoms; I10 Essential (primary) hypertension; K21.9 Gastro-esophageal reflux disease without esophagitis; E78.5 Hyperlipidemia, unspecified; G89.29 Other chronic pain; E11.40 Type 2 diabetes mellitus with diabetic neuropathy, unspecified; R09.02 Hypoxemia; Z79.82 Long term (current) use of aspirin; Z79.84 Long term (current) use of oral hypoglycemic drugs; Z79.899 Other long term (current) drug therapy; Z90.49 Acquired absence of other specified parts of digestive tract; Z79.1 Long term (current) use of non-steroidal anti-inflammatories (NSAID); Z74.01 Bed confinement status; Z20.822 Contact with and (suspected) exposure to COVID-19
CPT/HCPCS: 36415; 71045; 71046; 71275; 80048; 80061; 80076; 82550; 82553; 82805; 82947; 83036; 83605; 83690; 83735; 83880; 84484; 85025; 85379; 85610; 85730; 87040; 93005; 93306; 94010; 94640; 96365; 96366; 97110; 97162; 97530; 99285; J0456; J0696; J1644; J2920; J7030; J7040; J7050; Q9967; U0003

== ENCOUNTER 2020-07-20 15:37 | Emergency (ER) | payer OTHER ==
[2020-07-20 16:53] LABS: Basophils % 0.9 % (0-1.3); Hematocrit 38.9 % (39.6-49.0); Lymphocytes % 13.2 % (15.3-44.8); MPV 8.5 fL (7.6-11.3); RBC Red Blood Cell Count 4.17 M/uL (4.33-5.43)
[2020-07-20 16:54] LABS: Protime INR 1.02
[2020-07-20 17:07] LABS: ALT/SGPT 25 U/L (12-78); AST/SGOT 11 U/L (15-37); Albumin 3.2 g/dL (3.4-5.0); Alkaline Phosphatase 79 U/L (45-117); BUN Blood Urea Nitrogen 14 mg/dL (7-18); Bicarbonate 25 mmol/L (21-32); Bilirubin Direct 0.2 mg/dL (0-0.2); Bilirubin Total 0.5 mg/dL (0.2-1.0); Glucose Level 119 mg/dL (74-106); NT PRO-BNP 474 pg/mL (<450); Potassium 4.1 mmol/L (3.5-5.1); Protein, Total 6.3 g/dL (6.4-8.2); Sodium Level 139 mmol/L (136-145); Troponin (Emerg Dept Use Only) < 0.02 ng/mL (0.0-0.045)
--- NOTE | 2020-07-20 17:07 | RAD REPORT ---
EXAM DESCRIPTION: [place] Single View07/20/2020 4:16 pm CLINICAL HISTORY: Alteration consciousness COMPARISON: June 2020 FINDINGS: The lungs appear clear of acute infiltrate. The heart is normal size. Aorta is tortuous/e ctatic IMPRESSION: No acute abnormalities displayed
[2020-07-20] MEDS ORDERED: NA CHLORIDE 0.9% 500 ML ONE (17:09)
--- NOTE | 2020-07-20 17:18 | RAD REPORT ---
EXAM DESCRIPTION: CT - Head Brain Wo Cont - 07/20/2020 4:41 pm CLINICAL HISTORY: Alteration of awareness/confusion COMPARISON: 2019 TECHNIQUE: Computed axial tomography of the head was obtained. IV contrast was not requested. All CT scans are performed using dose optimization technique as appropriate and may include automated exposure control or mA/KV adjustment according to patient size. FINDINGS: 6.8 centimeter low-density area left occipital lobe compatible with acute infarct. Additional old cerebral infarcts.An intracranial bleed is not seen . The ventricles are normal in caliber. No extra-axial fluid collection is noted. Moderate low-density areas within periventricular, deep and subcortical white matter likely represent ischemic changes secondary to small vessel disease. Fluid within the sinuses/ mastoids is not seen. IMPRESSION: 6.8 centimeter acute infarct left occipital lobe. Edvin Page of the emergency room notif ied 5:10 p.m. July 20, 2020
[2020-07-20 17:39] LABS: Urine Blood Negative (Negative); Urine Glucose Negative (Negative); Urine Protein Negative (Negative)
[2020-07-20 17:57] LABS: Urine Bacteria NONE SEEN /HPF (NONE SEEN); Urine RBC <5 /HPF (NONE SEEN)
--- NOTE | 2020-07-20 18:15 | ER ---
Nurse's Notes [facility] Name: Selvin Florentino Age: 85 yrs Sex: Male : 1935 Arrival Date: 07/20/2020 Time: 15:46 Bed 14 Private MD: Diagnosis: Cerebral infarction;Aphasia Presentation: 07/20 15:57 Chief complaint: EMS states: "pt is from home and stated yesterday that he stopped jd3 talking and is not acting normal. pt currently A\\T\\O X 0 and can normally have conversations and sit up in bed according to his . 20 G IV started to left FA and 1000 ml of NS given. blood sugar of 162.". Coronavirus screen: At this time, the client does not indicate any symptoms associated with coronavirus-19. Ebola Screen: Patient negative for fever greater than or equal to 101.5 degrees Fahrenheit, and additional compatible Ebola Virus Disease symptoms. Initial Sepsis Screen: Does the patient meet any 2 criteria? No. Patient's initial sepsis screen is negative. Does the patient have a suspected source of infection? No. Patient's initial sepsis screen is negative. Risk Assessment: Do you want to hurt yourself or someone else? Patient reports no desire to harm self or others. Onset of symptoms was July 19, 2020. 15:57 Method Of Arrival: EMS: [facility] jd3 15:57 Acuity: TRACI 2 jd3 Historical: - Allergies: 16:03 No Known Allergies; jd3 - Home Meds: 16:03 aspirin 81 mg Oral TbEC 1 tab once daily [Active]; B-12 1000 mcg daily [Active]; jd3 lisinopril 2.5 mg Oral tab 1 tab as needed [Active]; Folic acid 800 mcg daily [Active]; Cinnamon 1000 mg daily Oral [Active]; magnesium 500 mg daily Oral [Active]; metformin 500 mg Oral tab 1 tab daily [Active]; metoprolol tartrate 100 mg Oral tab 0.5 tab 2 times per day [Active]; potassium 99 mg daily [Active]; tamsulosin 0.4 mg Oral cp24 1 cap once daily [Active]; atorvastatin 20 mg Oral tab 1 tab once daily [Active]; turmeric curcumin 500 mg daily [Active]; - PMHx: 16:03 Diabetes - NIDDM; Hypertension; neuropathy; Urinary incontinence; jd3 - Immunization history:: Adult Immunizations up to date. - Social history:: Smoking status: Patient denies any tobacco usage or history of. Screenin:05 The patient has not been NPO before screening. The patient is currently on the jd3 following diet: regular The patient is alert, able to follow commands. The patient exhibits slurred or garbled speech. Provider notified of indication for Speech Therapy consult. The patient is exhibiting difficulty speaking. Provider notified of indication for Speech Therapy consult. The patient is exhibiting difficulty understanding words. The provider has been notified of the indication for a speech consult. The patient is able to swallow own secretions with no drooling or need for suction. The patient did not tolerate one teaspoon of water. Drooling, immediate coughing, gurgling, or clearing of the throat was noted. Bedside swallow screening discontinued. Patient kept NPO until cleared by Speech Therapy or Physician. The patient failed the bedside swallow screening. The patient will be kept NPO until cleared by Speech Therapy or Physician. Provider notified of bedside swallow screening results: Edvin GUTIERREZ. 18:07 Abuse screen: Denies threats or abuse. Nutritional screening: No deficits noted. jd3 Tuberculosis screening: No symptoms or risk factors identified. Fall Risk Ambulatory Aid- Crutches/Cane/Walker (15 pts). Gait- Impaired (20 pts.). Mental Status- Overestimates/Forgets Limitations (15 pts.). Total Griffiths Fall Scale indicates High Risk Score (45 or more points). Fall prevention measures have been instituted. Side Rails Up X 2 Placed Close to Nursing Station Frequent Obs/Assessments Occuring Family Present and informed to notify staff if the need to leave the bedside. Assessment: 16:30 General: Appears comfortable, Behavior is drowsy, quiet, Reports fatigue for. Pain: jd3 Denies pain. Neuro: Level of Consciousness is awake, confused, Oriented to none Speech aphasia. pt unable to fallow commands. Cardiovascular: Capillary refill < 3 seconds Patient's skin is warm and dry. Rhythm is irregular. Respiratory: Airway is patent Respiratory effort is even, unlabored, Respiratory pattern is regular, symmetrical, Parent/caregiver reports the patient having cough that is non-productive, persistent. GI: No signs and/or symptoms were reported involving the gastrointestinal system. : Parent/caregiver report the patient having incontinence. EENT: No signs and/or symptoms were reported regarding the EENT system. Derm: Skin is intact, Skin is dry, Skin is normal, Skin temperature is warm. Musculoskeletal: Circulation, motion, and sensation intact. Range of motion:. 17:07 Reassessment: Patient appears in no apparent distress at this time. No changes from [facility] previously documented assessment. Patient and/or family updated on plan of care and expected duration. Pain level reassessed. pt continues A\\T\\O X 0 status. awake, but drowsy. even and unlabored respirations. 18:08 Reassessment: Patient appears in no apparent distress at this time. No changes from [facility] previously documented assessment. Patient and/or family updated on plan of care and expected duration. Pain level reassessed. pt is awake, but drowsy A\\T\\O X 0. 18:25 Reassessment: pt found on floor in room. pt assisted back to bed with help from nursing [facility] staff holding C-spine. small amount of blood noted on pt's forehead with small laceration noted, provider at bedside. new orders received. IRIS report done. C-collar placed on pt appears more awake, but continues A\\T\\O X 0 status. 18:30 Reassessment: pt to CT. jd3 19:03 Reassessment: Patient appears in no apparent distress at this time. Patient and/or [facility] family updated on plan of care and expected duration. Pain level reassessed. pt back from CT, appears awake/alert, but does not answer questions. A\\T\\O X 0. 19:14 Reassessment: report given to Kathya REHMAN. awaiting CT scan to remove C-collar. jd3 19:45 Reassessment: c-collar removed by ECP. zb 20:15 Reassessment: Laceration cleaned up by SENIOR POLICY ANALYST. pablo Vital Signs: 16:03 BP 112 / 81; Pulse 104; Resp 17 S; Temp 99.2(TE); Pulse Ox 95% on R/A; Weight 72.57 kg jd3 (R); Height 6 ft. 2 in. (187.96 cm) (R); Pain 0/10; 17:04 BP 154 / 94; Pulse 92; Resp 18 S; Pulse Ox 96% on R/A; jd3 18:00 BP 135 / 109; Pulse 107; Resp 17 S; Pulse Ox 95% on R/A; jd3 18:59 BP 155 / 90; Pulse 108; Resp 17 S; Pulse Ox 100% on R/A; jd3 20:00 BP 131 / 102; Pulse 115; Resp 16; Pulse Ox 94% on R/A; zb 16:03 Body Mass Index 20.54 (72.57 kg, 187.96 cm) jd3 NIH Stroke Scale Scores: 16:05 NIHSS Score: 14 jd3 ED Course: 15:46 Patient arrived in ED. em1 15:48 Edvin Vasquez PA is PHCP. cp 15:48 Edvin Barros MD is Attending Physician. cp 15:57 Dio Kirby, RN is Primary Nurse. jd3 16:01 Triage completed. jd3 16:04 Arm band placed on. jd3 16:05 Patient has correct armband on for positive identification. Bed in low position. Call jd3 light in reach. Side rails up X 1. Adult w/ patient. fingernail former on. Pulse ox on. NIBP on. 16:16 XRAY Chest (1 view) In Process Unspecified. EDMS 16:30 Inserted saline lock: 22 gauge in right forearm, using aseptic technique. Blood jd3 collected. Maintain EMS IV. Dressing intact. Good blood return noted. Site clean \\T\\ dry. Gauge \\T\\ site: 20 G left AC. 16:41 CT Head Brain wo Cont In Process Unspecified. EDMS 17:01 Rodriguez cath inserted, using sterile technique, 16 Fr., by ma, balloon inflated, urine jd3 specimen collected. returned olive urine. Patient tolerated well. 18:35 Patient transferred, IV remains in place. jd3 18:45 CT Head C Spine In Process Unspecified. EDMS 18:52 CT Head Angio In Process Unspecified. EDMS 18:52 CT Neck Angio In Process Unspecified. EDMS 19:18 Primary Nurse role handed off by Dio Kirby, SHERIE jd3 20:06 Kalani Zurita, SHERIE is Primary Nurse. zb 20:31 No provider procedures requiring assistance completed. zb Administered Medications: 17:02 Drug: NS 0.9% 500 ml Route: IV; Rate: 500 ml/hr; Site: right forearm; jd3 18:00 Follow up: Response: No adverse reaction; IV Status: Completed infusion; IV Intake: jd3 500ml 18:06 Drug: foLIC Acid 1 mg Route: IVPB; Site: right forearm; jd3 21:00 Follow up: Response: No adverse reaction; No change in condition; IV Status: Completed zb infusion; IV Intake: 0.2ml 18:07 Not Given (pt failed swallow screen): Aspirin 81 mg PO once jd3 Intake: 18:00 IV: 500ml; Total: 500ml. jd3 21:00 IV: 0ml; Total: 500ml. zb Outcome: 18:14 ER care complete, transfer ordered by . cp 20:32 Transferred Note: [facility] zb 20:32 Condition: stable 20:32 Instructed on the need for transfer, Demonstrated understanding of instructions, Instructions given to patient's . 21:57 Patient left the ED. dh4 NIH Stroke Scale - NIH Stroke Score Date: 07/20/2020 Time: 16:05 Total Score = 14 1a. Level of Consciousness (LOC) - 1(Not Alert) 1b. Level of Consciousness (LOC) (Year \\T\\ Age) - 2(Neither) 1c. LOC Commands (Open \\T\\ Closes Eyes/Geoscience Technician) - 2(Neither) 2. Best Gaze (Lateral Gaze Paresis) - 2(Forced deviation) 3. Visual Field Loss - 0(No visual loss) 4. Facial Palsy - 0(Normal) 5a. Left Arm: Motor (10-second hold) - 0(No drift) 5b. Right Arm: Motor (10-second hold) - 0(No drift) 6a. Left Leg: Motor (5-second hold - always test supine) - 0(No drift) 6b. Right Leg: Motor (5-second hold - always test supine) - 0(No drift) 7. Limb Ataxia (finger/nose \\T\\ heel/monroe - test with eyes open) - 0(Absent) 8. Sensory Loss (pinprick arms/legs/face) - 0(Normal) 9. Best Language: Aphasia (description/naming/reading) - 3(Mute, global aphasia) 10. Dysarthria (speech clarity - read or repeat words) - 2(Severe) 11. Extinction and Inattention (visual/tactile/auditory/spatial/personal) - 2(Profound) Initials: jd3 Signatures: Dispatcher [employer] EDMS Scotty, Bill em1 Edvin Vasquez PA PA cp Davies, Jonathon, RN RN j Hayes Coon 4 Kalani Zurita RN RN pablo Corrections: (The following items were deleted from the chart) 18:31 18:25 Reassessment: pt found on floor in room. pt assisted back to bed with jd3 help from nursing staff. small amount of blood noted on pt forehead with small laceration noted, provider at bedside. new orders received. IRIS report done. jd3 18:57 18:35 No provider procedures requiring assistance completed. j j 18:58 18:25 Reassessment: pt found on floor in room. pt assisted back to bed with jd3 help from nursing staff. small amount of blood noted on pt forehead with small laceration noted, provider at bedside. new orders received. IRIS report done. C-collar placed on pt. pt awake, appears more awake, but continues A\\T\\O X 0 status. j 16:30 Neuro: Level of Consciousness is awake, confused, Oriented to none j j : 17:07 Reassessment: Patient appears in no apparent distress at this time. No jd3 changes from previously documented assessment. Patient and/or family updated on plan of care and expected duration. Pain level reassessed. j : 18:08 Reassessment: Patient appears in no apparent distress at this time. No jd3 changes from previously documented assessment. Patient and/or family updated on plan of care and expected duration. Pain level reassessed. pt is awake, A\\T\\O X 0. j 19:10 15:57 Chief complaint: EMS states: "pt is from home and stated yesterday jd3 that he stopped talking and is not acting normal. pt currently A\\T\\O X 0 and can normally have conversations and sit up in bed according to his . 20 G IV started to left FA and 100 ml of NS given. blood sugar of 162." jd3 20:34 20:32 Transferred by ground EMS to [facility], Transfer form zb completed. zb 21:00 20:56 Response: No adverse reaction; No change in condition zb zb 21:00 21:00 Response: No adverse reaction; No change in condition; IV Intake: 0.2ml zbzb
--- NOTE | 2020-07-20 18:15 | EDPHYS ---
Physician Documentation [facility] Name: Selvin Florentino Age: 85 yrs Sex: Male : 1935 Arrival Date: 07/20/2020 Time: 15:46 Bed 14 Private MD: ED Physician Edvin Barros HPI: 07/20 16:00 This 85 yrs old Male presents to ER via EMS with complaints of Altered Mental cp Status. 16:00 The patient presents with decreased mental status, aphasia. cp 16:00 Onset: The symptoms/episode began/occurred yesterday afternoon. Possible causes: cp unknown. Associated signs and symptoms: Pertinent negatives: abdominal pain, chest pain, diarrhea, headache, fever. Current symptoms: In the emergency department the patient's symptoms are unchanged from the initial presentation. reports patient is normally bedridden, but verbal. reports since yesterday afternoon patient has been non-verbal. Historical: - Allergies: 16:03 No Known Allergies; jd3 - Home Meds: 16:03 aspirin 81 mg Oral TbEC 1 tab once daily [Active]; B-12 1000 mcg daily [Active]; jd3 lisinopril 2.5 mg Oral tab 1 tab as needed [Active]; Folic acid 800 mcg daily [Active]; Cinnamon 1000 mg daily Oral [Active]; magnesium 500 mg daily Oral [Active]; metformin 500 mg Oral tab 1 tab daily [Active]; metoprolol tartrate 100 mg Oral tab 0.5 tab 2 times per day [Active]; potassium 99 mg daily [Active]; tamsulosin 0.4 mg Oral cp24 1 cap once daily [Active]; atorvastatin 20 mg Oral tab 1 tab once daily [Active]; turmeric curcumin 500 mg daily [Active]; - PMHx: 16:03 Diabetes - NIDDM; Hypertension; neuropathy; Urinary incontinence; jd3 - Immunization history:: Adult Immunizations up to date. - Social history:: Smoking status: Patient denies any tobacco usage or history of. ROS: 16:05 Constitutional: Negative for fever. cp 16:05 Eyes: Negative for injury, pain, redness, and discharge. cp 16:05 ENT: Negative for ear pain, sore throat, difficulty swallowing, difficulty handling secretions. 16:05 Cardiovascular: Negative for chest pain. 16:05 Respiratory: Negative for cough, wheezing. 16:05 Abdomen/GI: Negative for abdominal pain, nausea, vomiting, and diarrhea. 16:05 Neuro: Positive for altered mental status. 16:05 All other systems are negative. Exam: 16:10 Constitutional: The patient appears in no acute distress, alert, awake, cp non-diaphoretic, non-toxic, well developed, frail. 16:10 Head/Face: Normocephalic, atraumatic. cp 16:10 Eyes: Periorbital structures: appear normal, Pupils: equal, round, and reactive to light and accomodation, Conjunctiva: normal, no exudate, no injection, Sclera: no appreciated abnormality, Lids and lashes: appear normal, bilaterally. 16:10 ENT: External ear(s): are unremarkable, Nose: is normal, Mouth: Lips: moist, Oral mucosa: moist, Posterior pharynx: Airway: no evidence of obstruction, patent. 16:10 Neck: ROM/movement: is normal, is supple, without pain, no range of motions limitations, no meningismus. 16:10 Chest/axilla: Inspection: normal, Palpation: is normal, no crepitus, no tenderness. 16:10 Cardiovascular: Rate: tachycardic, Rhythm: irregular, Edema: is not appreciated, JVD: cp is not appreciated. 16:10 Respiratory: the patient does not display signs of respiratory distress, Respirations: normal, no use of accessory muscles, no retractions, labored breathing, is not present, Breath sounds: are clear throughout, no decreased breath sounds. 16:10 Abdomen/GI: Inspection: abdomen appears normal, Palpation: abdomen is soft and non-tender, in all quadrants. 16:10 Neuro: Orientation: to person, Mentation: able to follow commands, slow to respond, Motor: strength is 5/5 in the right arm and left arm. 16:27 ECG was reviewed by the Attending Physician. cp Vital Signs: 16:03 BP 112 / 81; Pulse 104; Resp 17 S; Temp 99.2(TE); Pulse Ox 95% on R/A; Weight 72.57 kg jd3 (R); Height 6 ft. 2 in. (187.96 cm) (R); Pain 0/10; 17:04 BP 154 / 94; Pulse 92; Resp 18 S; Pulse Ox 96% on R/A; jd3 18:00 BP 135 / 109; Pulse 107; Resp 17 S; Pulse Ox 95% on R/A; jd3 18:59 BP 155 / 90; Pulse 108; Resp 17 S; Pulse Ox 100% on R/A; jd3 20:00 BP 131 / 102; Pulse 115; Resp 16; Pulse Ox 94% on R/A; zb 16:03 Body Mass Index 20.54 (72.57 kg, 187.96 cm) jd3 NIH Stroke Scale Scores: 16:05 NIHSS Score: 14 jd3 Laceration: 20:45 Wound Repair of 2.5cm ( 1.0in ) subcutaneous laceration to scalp. Linear shaped.. cp Distal neuro/vascular/tendon intact. Wound prep: Simple cleansing by retail maintenance technician. Skin closed with 3 1-[place] using staple gun. Dressed with 4x4's. Patient tolerated well. MDM: 15:49 Patient medically screened. anuja 16:20 Differential Diagnosis: CVA, intracranial bleed, pneumonia, sepsis, UTI, volume cp depletion. 18:15 Physician consultation: was contacted at 18:10, regarding regarding transfer, [facility] patient's condition, accepting physician will be DR Youngblood. 19:30 Data reviewed: vital signs, nurses notes, lab test result(s), EKG, radiologic studies, cp CT scan, plain films. 19:30 Test interpretation: by ED physician or midlevel provider: ECG, plain radiologic cp studies. 07/20 15:58 Order name: Basic Metabolic Panel cp 07/20 15:58 Order name: CBC with Diff cp 07/20 15:58 Order name: LFT's cp 07/20 15:58 Order name: Magnesium cp 07/20 15:58 Order name: NT PRO-BNP cp 07/20 15:58 Order name: PT-INR cp 07/20 15:58 Order name: Troponin (emerg Dept Use Only) cp 07/20 15:58 Order name: Blood Culture Adult (2) cp 07/20 15:58 Order name: Urine Microscopic Only; Complete Time: 18:10 cp 07/20 15:58 Order name: Lactate; Complete Time: 17:20 cp 07/20 15:58 Order name: Basic Metabolic Panel; Complete Time: 17:20 EDMS 07/20 15:59 Order name: CBC with Automated Diff; Complete Time: 17:20 EDMS 07/20 18:13 Interpretation: Normal except: RBC 4.17; HGB 12.8; HCT 38.9; LLOYD% 77.2; LYM% 13.2. cp 05/ 15:58 Order name: XRAY Chest (1 view); Complete Time: 17:20 cp 05 15:58 Order name: EKG; Complete Time: 15:59 cp 07/20 15:58 Order name: CT Head Brain wo Cont; Complete Time: 17:20 cp 07/20 15:59 Order name: Liver (Hepatic) Function; Complete Time: 17:20 EDMS 07/20 15:59 Order name: Magnesium; Complete Time: 17:20 EDMS 07/20 15:59 Order name: NT PRO-BNP; Complete Time: 17:20 EDMS 07/20 15:59 Order name: Protime (+INR); Complete Time: 17:20 EDMS 07/20 15:59 Order name: Troponin (Emerg Dept Use Only); Complete Time: 17:20 EDMS 07/20 17:39 Order name: Urine Dipstick-Ancillary; Complete Time: 18:10 EDMS 07/20 18:13 Order name: CT Head Angio; Complete Time: 19:23 cp 07/20 18:13 Order name: CT Neck Angio; Complete Time: 19:23 cp 07/20 18:23 Order name: CT Head C Spine; Complete Time: 19:23 cp 07/20 20:25 Order name: SARS-COV-2 RT PCR EDMS 07/20 15:58 Order name: Cardiac monitoring; Complete Time: 16:06 cp 07/20 15:58 Order name: EKG - Nurse/Tech; Complete Time: 16:16 cp 07/20 15:58 Order name: IV Saline Lock; Complete Time: 16:06 cp 07/20 15:58 Order name: Labs collected and sent; Complete Time: 16:41 cp 07/20 15:58 Order name: O2 Per Protocol; Complete Time: 16:05 cp 07/20 15:58 Order name: O2 Sat Monitoring; Complete Time: 16:05 cp 05 15:58 Order name: Urine Dipstick-Ancillary (obtain specimen); Complete Time: 17:45 cp 07/20 15:58 Order name: Cath; Complete Time: 17:00 cp 07/20 17:23 Order name: Swallow Screen; Complete Time: 18:06 cp 07/20 20:02 Order name: Wound Care: please clean and irrigate wound; Complete Time: 20:07 cp EC:27 Rate is 94 beats/min. Rhythm is irregular. QRS interval is prolonged at 106 msec. QT cp interval is normal. Interpreted by me. Reviewed by me. Administered Medications: 17:02 Drug: NS 0.9% 500 ml Route: IV; Rate: 500 ml/hr; Site: right forearm; jd3 18:00 Follow up: Response: No adverse reaction; IV Status: Completed infusion; IV Intake: jd3 500ml 18:06 Drug: foLIC Acid 1 mg Route: IVPB; Site: right forearm; jd3 21:00 Follow up: Response: No adverse reaction; No change in condition; IV Status: Completed zb infusion; IV Intake: 0.2ml 18:07 Not Given (pt failed swallow screen): Aspirin 81 mg PO once jd3 Disposition: 07/21 07:10 Co-signature as Attending Physician, Edvin Barros MD I agree with the assessment and anuja plan of care. Disposition: 07/20/20 18:14 Transfer ordered to Other Acute Care Facility. Diagnosis are Cerebral infarction, Aphasia. - Reason for transfer: Higher level of care. - Accepting physician is Doctor. - Condition is Stable. - Problem is new. - Symptoms are unchanged. NIH Stroke Scale - NIH Stroke Score Date: 07/20/2020 Time: 16:05 Total Score = 14 1a. Level of Consciousness (LOC) - 1(Not Alert) 1b. Level of Consciousness (LOC) (Year \T\ Age) - 2(Neither) 1c. LOC Commands (Open \T\ Closes Eyes/Planning Consultant) - 2(Neither) 2. Best Gaze (Lateral Gaze Paresis) - 2(Forced deviation) 3. Visual Field Loss - 0(No visual loss) 4. Facial Palsy - 0(Normal) 5a. Left Arm: Motor (10-second hold) - 0(No drift) 5b. Right Arm: Motor (10-second hold) - 0(No drift) 6a. Left Leg: Motor (5-second hold - always test supine) - 0(No drift) 6b. Right Leg: Motor (5-second hold - always test supine) - 0(No drift) 7. Limb Ataxia (finger/nose \T\ heel/monroe - test with eyes open) - 0(Absent) 8. Sensory Loss (pinprick arms/legs/face) - 0(Normal) 9. Best Language: Aphasia (description/naming/reading) - 3(Mute, global aphasia) 10. Dysarthria (speech clarity - read or repeat words) - 2(Severe) 11. Extinction and Inattention (visual/tactile/auditory/spatial/personal) - 2(Profound) Initials: jd3 Signatures: Dispatcher [employer] EDPR Edvin Barros MD MD cha Page, Corey, BRENDA PA cp Dio Kirby, RN RN jd3 [facility] Kalani Zurita RN zb Corrections: (The following items were deleted from the chart) 07/20 18:15 18:14 07/20/2020 18:14 Transfer ordered to Other Acute Care Facility. Diagnosis cp is Cerebral infarction. Reason for transfer: Higher level of care. Accepting physician is Doctor. Condition is Stable. Problem is new. Symptoms are unchanged. cp 19:41 15:59 CORONAVIRUS+MR.LAB.BRZ ordered. [facility] EDPR 21:57 18:15 07/20/2020 18:14 Transfer ordered to Other Acute Care Facility. Diagnosis dh4 is Cerebral infarction; Aphasia. Reason for transfer: Higher level of care. Accepting physician is Doctor. Condition is Stable. Problem is new. Symptoms are unchanged. cp
[2020-07-20] MEDS ORDERED: ASPIRIN 81 MG CHEWABLE TABLET ONE (18:17)
[2020-07-20] MEDS ORDERED: NA CHLORIDE 0.9% 100 ML ONE (18:17)
[2020-07-20] MEDS ORDERED: FOLIC ACID 5 MG/ML VIAL ONE (18:18)
--- NOTE | 2020-07-20 19:01 | RAD REPORT ---
EXAM DESCRIPTION: CT - Head C Spine Mpr Wo Con - 07/20/2020 6:45 pm CLINICAL HISTORY: Head and neck injury status post fall. Head and neck pain COMPARISON: CT head July 20, 2020 TECHNIQUE: Computed axial tomography of the head and cervical spine was obtained. Sagittal and coronal reconstruction was performed. All CT scans are performed using dose optimization technique as appropriate and may include automated exposure control or mA/KV adjustment according to patient size. FINDINGS: An intracranial bleed is not present. No change since a head CT are the same A cervical fracture is not visualized. No dislocation is noted. Spondylosis involves mid and distal c ervical spine resulting multilevel marked foraminal stenosis and mild to moderate central spinal sten osis IMPRESSION: No change in the left occipital lobe acute infarct Cervical fracture is not seen Spondylosis involves mid and distal cervical spine resulting multilevel marked foraminal stenosis an d mild to moderate central spinal stenosis If patient continues have symptoms to suggest spinal canal/spinal cord pathology MRI would be recomme nded
--- NOTE | 2020-07-20 19:10 | RAD REPORT ---
EXAM DESCRIPTION: Shiv Angio07/20/2020 6:53 pm CLINICAL HISTORY: CVA. COMPARISON: None TECHNIQUE: 50 cc Isovue 370 was administered intravenously. 3D MIP reconstruction performed All CT scans are performed using dose optimization technique as appropriate and may include automated exposure control or mA/KV adjustment according to patient size. FINDINGS: The left vertebral artery is very small. The right vertebral artery is normal. Mild plaque within common carotid, internal carotid and external carotid arteries bilaterally. IMPRESSION: Mild plaque within the carotid arteries bilaterally The left vertebral artery is very small. 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 A meat cutter apprentice stacy dissection can have this appearance but is considered less likely. Further evaluation with MRA wo uld be helpful to differentiate between the 2 possibilities. NASCET criteria used. Mild 0-49% stenosis Moderate 50-69% stenosis Severe 70-99% stenosis
--- NOTE | 2020-07-20 19:14 | RAD REPORT ---
EXAM DESCRIPTION: CTHead angio07/20/2020 6:53 pm CLINICAL HISTORY: CVA COMPARISON: None TECHNIQUE: CT angiogram of the head was obtained. 3D MIPS reconstruction performed. All CT scans are performed using dose optimization technique as appropriate and may include automated exposure control or mA/KV adjustment according to patient size. FINDINGS: The basilar, right and left internal carotid, right and left anterior cerebral, left middl e cerebral and and right posterior cerebral arteries are normal caliber. An aneurysm is not seen. Diminished flow within branches of the right middle cerebral artery appears chronic There is diminished flow within the branches of the left posterior cerebral artery IMPRESSION: Diminished flow within the branches of the left posterior cerebral artery appears acute
[2020-07-20 22:06] VITALS: TEMP 99.2
[2020-07-20 22:19] VITALS: BP 131/102; O2SAT 94
== END 2020-07-20 21:57 ==
LOC: ER 15:37
PROC: 0JQ00ZZ Repair Scalp Subcutaneous Tissue and Fascia, Open Approach (ICD-10-PCS; principal; 2020-07-20)
DX: I63.9 Cerebral infarction, unspecified (principal); R47.01 Aphasia; S01.01XA Laceration without foreign body of scalp, initial encounter; I10 Essential (primary) hypertension; R29.714 NIHSS score 14; E11.9 Type 2 diabetes mellitus without complications; Z20.822 Contact with and (suspected) exposure to COVID-19; Z79.82 Long term (current) use of aspirin
CPT/HCPCS: 96365; 96361; 93005; 87040 ×2; 85025; 80048; 36415; 83735; 85610; 80076; 83605; 84484; 83880; 70450 ×2; 72125; 70496; 70498; 71045; 51702; 99285; 96366; 12001; U0003; Q9967; J7040; 81003; 81015

== ENCOUNTER 2020-08-20 09:10 | Inpatient (IN) | payer OTHER ==
[2020-08-20 09:42] LABS: Absolute Lymphocytes (CBC) 1.9 K/uL (0.7-4.9); Basophils % 0.6 % (0-1.3); Hematocrit 38.1 % (39.6-49.0); Lymphocytes % 13.8 % (15.3-44.8); MPV 7.5 fL (7.6-11.3); RBC Red Blood Cell Count 4.24 M/uL (4.33-5.43)
[2020-08-20 09:45] LABS: Blood Gas Oxyhemoglobin 48.5 % (94-97); Blood O2 Saturation 49.4 % (92-98.5)
[2020-08-20 09:49] LABS: Protime INR 1.08
[2020-08-20] MEDS ORDERED: NA CHLORIDE 0.9% 2,000 ML ONE (09:54)
[2020-08-20] MEDS ORDERED: PIPER/TAZO/NS 3.375gm 3.375 GM/100 ML BAG ONE (09:54)
--- NOTE | 2020-08-20 10:01 | RAD REPORT ---
EXAM DESCRIPTION: RAD - Chest Single View - 08/20/2020 9:49 am CLINICAL HISTORY: COUGH COMPARISON: Portable July 20 TECHNIQUE: AP portable chest image was obtained 08/20/2020 9:49 am . FINDINGS: Lung volumes are low, particularly right hemithorax. This accentuates the baseline fibroti c lung pattern. No new left lung finding. Stranding in the medial right base is believed to be the miller mmation of fibrotic lung pattern due to low lung volume. Significant failure or volume overload doubt ful. Heart and vasculature are normal. No measurable pleural effusion and no pneumothorax. No acute bony abnormality seen. No acute aortic findings suspected. IMPRESSION: No acute cardiopulmonary finding confirmed. Medial right base increased opacification is believed to be summation of fibrosis due to low lung vol umes. Patient can be monitored for right lung base exam findings and re-evaluated as warranted.
[2020-08-20 10:10] LABS: ALT/SGPT 23 U/L (12-78); AST/SGOT 17 U/L (15-37); Albumin 2.4 g/dL (3.4-5.0); Alkaline Phosphatase 60 U/L (45-117); BUN Blood Urea Nitrogen 19 mg/dL (7-18); Bicarbonate 26 mmol/L (21-32); Bilirubin Direct 0.2 mg/dL (0-0.2); Bilirubin Total 0.6 mg/dL (0.2-1.0); Glucose Level 194 mg/dL (74-106); Lipase 67 U/L (73-393); Magnesium 1.8 mg/dL (1.8-2.4); NT PRO-BNP 717 pg/mL (<450); Protein, Total 6.1 g/dL (6.4-8.2); Sodium Level 141 mmol/L (136-145)
[2020-08-20 10:11] LABS: Troponin (Emerg Dept Use Only) 0.54 ng/mL (0.0-0.045)
[2020-08-20] MEDS ORDERED: HYDROCORTISONE SUC 100 MG INJ ONE (10:15)
[2020-08-20] MEDS ORDERED: IPRATROPIUM BROM 0.5MG/2.5ML ONE (10:15)
[2020-08-20] MEDS ORDERED: LEVALBUTEROL 1.25 MG/3 ML NEB ONE (10:16)
--- NOTE | 2020-08-20 10:23 | ER ---
Nurse's Notes [facility] Name: Selvin Florentino Age: 85 yrs Sex: Male : 1935 Arrival Date: 08/20/2020 Time: 09:15 Bed 4 Private MD: Diagnosis: Hypoxemia;Dyspnea;Altered mental status, unspecified;Dehydration;Sepsis, unspecified organism;Pressure ulcer of buttock;Acute sinusitis Presentation: 08/20 09:17 Chief complaint: EMS states: Toned out for generalized weakness. states pt has ld1 been unresponsive, not eating or drinking for 3 days post d/c from [facility]. Coronavirus screen: At this time, the client does not indicate any symptoms associated with coronavirus-19. Ebola Screen: No symptoms or risks identified at this time. Initial Sepsis Screen: Does the patient meet any 2 criteria? RR > 20 per min. Altered Mental Status. HR > 90 bpm. Yes Does the patient have a suspected source of infection? Yes: Skin breakdown/wound. Risk Assessment: Do you want to hurt yourself or someone else? Patient reports no desire to harm self or others. Onset of symptoms was August 19, 2020. 09:17 Method Of Arrival: EMS: [facility] ld1 09:17 Acuity: TRACI 1 tw2 Triage Assessment: 09:24 General: Appears slender, malnourished, Behavior is calm, unresponsive. Pain: Unable to ld1 use pain scale. Patient is unresponsive. EENT: No signs and/or symptoms were reported regarding the EENT system. Neuro: Level of Consciousness is unresponsive, Oriented to none. Cardiovascular: Capillary refill < 3 seconds Rhythm is sinus tachycardia. Respiratory: Airway is patent Respiratory effort is even, labored, Respiratory pattern is symmetrical, hyperventilation. GI: Abdomen is flat, non-distended, Parent/caregiver reports the patient having. : Rodriguez in place to gravity drainage Urine is cloudy. Derm: Skin is thin, has skin tears on Stage 3 wound to sacrum. No drainage noted. Skin tears noted to area.. Wound noted coccyx. Musculoskeletal: Range of motion: limited in all extremities. Historical: - Allergies: 09:24 No Known Allergies; ld1 - Home Meds: 09:24 aspirin 81 mg Oral TbEC 1 tab once daily [Active]; atorvastatin 20 mg Oral tab 1 tab ld1 once daily [Active]; lisinopril 2.5 mg Oral tab 1 tab as needed [Active]; metformin 500 mg Oral tab 1 tab 2 times per day [Active]; potassium 99 mg daily [Active]; tamsulosin 0.4 mg Oral cp24 1 cap once daily [Active]; benzonatate 100 mg oral cap 3 times per day [Active]; clopidogrel 75 mg oral tab [Active]; mirtazapine 15 mg Oral tab 1 tab once daily [Active]; lisinopril 5 mg Oral tab 1 tab once daily [Active]; sertraline 25 mg oral tab 1 tab once daily [Active]; - Immunization history:: Adult Immunizations up to date. - Social history:: Smoking status: unknown. Screenin:30 Abuse screen: Denies threats or abuse. Denies injuries from another. Nutritional ld1 screening: No deficits noted. Tuberculosis screening: No symptoms or risk factors identified. Fall Risk IV access (20 points). Gait- Impaired (20 pts.). Total Griffiths Fall Scale indicates. Assessment: 09:17 Reassessment: RT at bedside a this time, NRB placed on pt at 15L, RT performed deep tw2 suction, 02 improved to 94%, provider at bedside at this time. 09:30 Reassessment: See triage assessment. ld1 10:15 Reassessment: No changes from previously documented assessment. Pt laying in bed with ld1 at bedside. RR 24. 11:11 Reassessment: SpO2 80's on NRB, PA Michelet aware. No new orders at this time. ld1 11:57 Reassessment: Respiratory at bedside suctioning. SpO2 100 on NRB at 15LPM. ld1 12:45 Reassessment: No changes from previously documented assessment. Patient and/or family hb updated on plan of care and expected duration. Pain level reassessed. 13:48 Reassessment: No changes from previously documented assessment. Patient and/or family hb updated on plan of care and expected duration. Pain level reassessed. RR 19, laying in bed resting. No signs of distress at this time. 15:05 Reassessment: No changes from previously documented assessment. Patient and/or family ld1 updated on plan of care and expected duration. Pain level reassessed. 16:18 Reassessment: No changes from previously documented assessment. Patient and/or family ld1 updated on plan of care and expected duration. Pain level reassessed. Vital Signs: 09:17 BP 103 / 79; Pulse 134; Resp 39; Pulse Ox 66% on 15% Non-rebreather mask; Weight 56.7 ld1 kg; 09:38 Temp 98.8(C); tw2 10:30 BP 119 / 68; Pulse 126; Resp 21; Temp 99.3(C); Pulse Ox 85% on 15% Non-rebreather mask; ld1 11:03 BP 98 / 81; Pulse 121; Resp 24; Temp 99.1(C); Pulse Ox 91% on 15% Non-rebreather mask; ld1 11:57 BP 119 / 77; Pulse 113; Resp 22; Temp 99.1(C); Pulse Ox 100% on 15% Non-rebreather mask;ld1 12:29 BP 124 / 79; Pulse 109; Resp 19; Temp 99.4(C); Pulse Ox 100% on Non-rebreather mask; tw2 13:51 BP 117 / 80; Pulse 105; Resp 20; Temp 99.6(C); Pulse Ox 98% on 4 lpm NC; hb 15:05 BP 128 / 82; Pulse 91; Resp 16; Temp 99.4(C); Pulse Ox 100% on 4 lpm NC; ld1 16:18 BP 138 / 86; Pulse 90; Resp 15; Temp 99.3(C); Pulse Ox 100% on 4 lpm NC; ld1 ED Course: 09:15 Patient arrived in ED. ss 09:17 Cami Parker RN is Primary Nurse. ld1 09:18 Edvin Barros MD is Attending Physician. anuja 09:20 Inserted saline lock: 20 gauge in left forearm, using aseptic technique. ,using aseptic tw2 technique. by KJ Blood collected. 09:21 Triage completed. ld1 09:24 Arm band placed on right wrist. EKG completed in triage. Results shown to . ld1 09:30 Patient has correct armband on for positive identification. Placed in gown. Bed in low ld1 position. Call light in reach. Side rails up X2. cardiac monitor on. Pulse ox on. NIBP on. Notified ED physician of vital signs. Noise minimized. Warm blanket given. 09:30 No provider procedures requiring assistance completed. Maintain EMS IV. Dressing ld1 intact. Gauge \T\ site: 20G RH. 09:36 Blood Culture Adult (2) Sent. tw2 09:49 XRAY Chest (1 view) In Process Unspecified. EDMS 10:10 CT Head Brain wo Cont In Process Unspecified. EDMS 10:20 Adrienne Jacobs MD is Hospitalizing Provider. anuja 10:32 Flu Sent. ld1 Administered Medications: 09:45 Drug: NS 0.9% 1000 ml Route: IV; Rate: 1 bolus; Site: right hand; ld1 10:52 Follow up: Response: No adverse reaction; IV Status: Completed infusion ld1 09:45 Drug: NS 0.9% 1000 ml Route: IV; Rate: 125 ml/hr; Site: left hand; ld1 09:45 Drug: Zosyn (piperacillin-tazobactam) 3.375 grams Route: IVPB; Infused Over: 60 mins; ld1 Site: right wrist; 09:45 Drug: NS 0.9% 1000 ml Route: IV; Rate: 1 bolus; Site: left hand; ld1 10:15 Drug: Xopenex (levalbuterol) 2.5 mg Route: Inhalation; ld1 10:51 Follow up: Response: No adverse reaction ld1 10:15 Drug: AtroVENT (ipratropium) Aerosol 0.5 mg Route: Inhalation; ld1 10:51 Follow up: Response: No adverse reaction ld1 10:15 Drug: Solu-CORTEF (hyrdoCORTISONE) 100 mg Route: IVP; Site: left hand; ld1 10:51 Follow up: Response: No adverse reaction ld1 11:03 Drug: Aspirin Suppository 300 mg Route: MD; ld1 11:56 Follow up: Response: No adverse reaction ld1 Point of Care Testing: Blood Glucose: 09:24 Blood Glucose: 238 mg/dL; ld1 Ranges: Outcome: 10:22 Decision to Hospitalize by Provider. anuja 17:16 Patient left the ED. ld1 Signatures: Dispatcher [employer] EDMS Edvin Barros MD MD cha Smirch, Shelby, RN RN Yi Pratt RN RN hb Wise, Tara, RN RN tw2 Cami Parker RN RN ld1 Corrections: (The following items were deleted from the chart) 09:33 09:17 Acuity: TRACI 2 ld1 tw2
--- NOTE | 2020-08-20 10:23 | EDPHYS ---
Physician Documentation [facility] Name: Selvin Florentino Age: 85 yrs Sex: Male : 1935 Arrival Date: 08/20/2020 Time: 09:15 Bed 4 Private MD: ED Physician Edvin Barros HPI: 08/20 09:56 This 85 yrs old Male presents to ER via EMS with complaints of General anuja Weakness. 09:56 The patient has shortness of breath at rest. Onset: The symptoms/episode began/occurred anuja last night, 1 day(s) ago. Duration: The symptoms are continuous, and are steadily getting worse. The patient's shortness of breath is aggravated by nothing, is alleviated by nothing. The patient presents with confusion, decreased mental status, decreased responsiveness. Possible causes: CVA or TIA, head injury, low blood sugar, seizure, sepsis. Associated signs and symptoms: Pertinent positives: non-productive cough, dizziness, nausea. Severity of symptoms: At their worst the symptoms were moderate in the emergency department the symptoms are unchanged. Associated signs and symptoms: Pertinent positives: confusion, shortness of breath, weakness. Current symptoms: In the emergency department the patient's symptoms are unchanged from the initial presentation. Historical: - Allergies: 09:24 No Known Allergies; ld1 - Home Meds: 09:24 aspirin 81 mg Oral TbEC 1 tab once daily [Active]; atorvastatin 20 mg Oral tab 1 tab ld1 once daily [Active]; lisinopril 2.5 mg Oral tab 1 tab as needed [Active]; metformin 500 mg Oral tab 1 tab 2 times per day [Active]; potassium 99 mg daily [Active]; tamsulosin 0.4 mg Oral cp24 1 cap once daily [Active]; benzonatate 100 mg oral cap 3 times per day [Active]; clopidogrel 75 mg oral tab [Active]; mirtazapine 15 mg Oral tab 1 tab once daily [Active]; lisinopril 5 mg Oral tab 1 tab once daily [Active]; sertraline 25 mg oral tab 1 tab once daily [Active]; - Immunization history:: Adult Immunizations up to date. - Social history:: Smoking status: unknown. ROS: 09:58 Constitutional: Positive for fatigue, malaise, poor PO intake. anuja 09:58 Cardiovascular: Positive for palpitations. 09:58 Respiratory: Positive for cough, shortness of breath, at rest. 09:58 Abdomen/GI: Positive for anorexia. 09:58 Skin: Positive for pallor, swelling, of the coccyx. Exam: 09:58 Eyes: Pupils equal round and reactive to light, extra-ocular motions intact. Lids and anuja lashes normal. Conjunctiva and sclera are non-icteric and not injected. Cornea within normal limits. Periorbital areas with no swelling, redness, or edema. 09:58 Cardiovascular: Rate: tachycardic, Rhythm: regular, Pulses: Pulses are 4+ in bilateral radial, brachial, femoral, popliteal, posterior tibial and and dorsalis pedis arteries.. Heart sounds: normal, Edema: is not appreciated, JVD: is not appreciated. 09:58 ECG was reviewed by the Attending Physician. 09:58 Respiratory: mild respiratory distress is noted, Respirations: labored breathing, that is mild, Breath sounds: decreased breath sounds, rhonchi, wheezing: expiratory Respiratory rate: 39 Vital Signs: 09:17 BP 103 / 79; Pulse 134; Resp 39; Pulse Ox 66% on 15% Non-rebreather mask; Weight 56.7 ld1 kg; 09:38 Temp 98.8(C); tw2 10:30 BP 119 / 68; Pulse 126; Resp 21; Temp 99.3(C); Pulse Ox 85% on 15% Non-rebreather mask; ld1 11:03 BP 98 / 81; Pulse 121; Resp 24; Temp 99.1(C); Pulse Ox 91% on 15% Non-rebreather mask; ld1 11:57 BP 119 / 77; Pulse 113; Resp 22; Temp 99.1(C); Pulse Ox 100% on 15% Non-rebreather mask;ld1 12:29 BP 124 / 79; Pulse 109; Resp 19; Temp 99.4(C); Pulse Ox 100% on Non-rebreather mask; tw2 13:51 BP 117 / 80; Pulse 105; Resp 20; Temp 99.6(C); Pulse Ox 98% on 4 lpm NC; hb 15:05 BP 128 / 82; Pulse 91; Resp 16; Temp 99.4(C); Pulse Ox 100% on 4 lpm NC; ld1 16:18 BP 138 / 86; Pulse 90; Resp 15; Temp 99.3(C); Pulse Ox 100% on 4 lpm NC; ld1 MDM: 09:18 Patient medically screened. [facility] 10:00 Differential diagnosis: Anemia Bronchitis CHF exacerbation, Chronic Obstructive anuja Pulmonary Disease Myocardial Infarction pneumonia, Pneumothorax pulmonary edema, reactive airway disease, Sepsis Unstable Angina. Antibiotic administration: zosyn. Differential Diagnosis: CVA, electrolyte abnormality, hypoglycemia, intracranial bleed, pneumonia, seizure, sepsis, TIA, UTI, volume depletion. The patient's Wells Deep Vein Thrombosis Score was calculated as follows: Heart Rate >100 BPM (1.5 Pts) Total Score: 0-2 Pts- Low Risk. The patient's pulmonary embolism risk score was calculated as follows: the patients heart rate is greater than 100 beats per minute (1.5 Pts) Total Score: 0-2 points. This patient was found to be at low risk for a pulmonary embolism by using the Well's assessment criteria. Immunization status: Pneumococcal vaccine: Not up to date Influenza vaccine: Data reviewed: vital signs, nurses notes, lab test result(s), EKG, radiologic studies, CT scan, plain films. Data interpreted: air sampling and monitoring: rate is 134 beats/min, rhythm is regular, Pulse oximetry: on room air is 66 %. Test interpretation: by ED physician or midlevel provider: ECG, plain radiologic studies. Counseling: I had a detailed discussion with the patient and/or guardian regarding: the historical points, exam findings, and any diagnostic results supporting the discharge/admit diagnosis, lab results, radiology results, the need for further work-up and treatment in the hospital. 08/20 09:22 Order name: Basic Metabolic Panel [facility] 08/20 08:22 Order name: CBC with Diff 08/20:22 Order name: LFT's; Complete Time: 10:13 [facility] 08/20 08:22 Order name: Magnesium; Complete Time: 10:13 [facility] 08/20 08:22 Order name: NT PRO-BNP; Complete Time: 10:13 [facility] 08/20 08:22 Order name: PT-INR; Complete Time: 10:13 [facility] 08/20 08:22 Order name: Troponin (emerg Dept Use Only); Complete Time: 10:13 [facility] 08/20 08:22 Order name: Lipase; Complete Time: 10:13 [facility] 06/15 09:22 Order name: Blood Culture Adult (2) [facility] 08/20 09:22 Order name: Type And Screen [facility] 08/20 09:22 Order name: Lactate; Complete Time: 10:13 [facility] 08/20 09:22 Order name: ABG [facility] 08/20 09:23 Order name: Basic Metabolic Panel; Complete Time: 10:13 EDMA 08/20 09:22 Order name: XRAY Chest (1 view); Complete Time: 10:13 [facility] 08/20 09:23 Order name: CBC with Automated Diff; Complete Time: 09:49 EDMA 08/20 09:32 Order name: Sputum Culture [facility] 08/20 09:32 Order name: Glucose, Ancillary Testing; Complete Time: 09:49 EDMA 08/20 09:49 Order name: Flu [facility] 08/20 09:49 Order name: Influenza Screen (A ; Complete Time: 10:13 [facility] 08/20 09:55 Order name: CT Head Brain wo Cont [facility] 08/20 10:41 Order name: SARS-COV-2 RT PCR [facility] 08/20 11:22 Order name: ABG 08/20 12:30 Order name: Troponin I [facility] 08/20 12:51 Order name: ABO/RH no charge [facility] 08/20 12:52 Order name: Lactate Sepsis 2 HR Follow-up [facility] 08/20 09:22 Order name: EKG; Complete Time: 09:23 [facility] 08/20 09:22 Order name: Cardiac monitoring; Complete Time: 09:34 [facility] 08/20 09:22 Order name: EKG - Nurse/Tech; Complete Time: 09:34 [facility] 08/20 09:22 Order name: IV Saline Lock; Complete Time: 09:34 [facility] 08/20 09:22 Order name: Labs collected and sent; Complete Time: 09:35 [facility] 08/20 09:22 Order name: O2 Per Protocol; Complete Time: 09:35 [facility] 08/20 09:22 Order name: O2 Sat Monitoring; Complete Time: 09:35 [facility] 08/20 09:22 Order name: Rodriguez; Complete Time: 09:34 [facility] 08/20 09:22 Order name: Blood Glucose Level; Complete Time: 09:34 [facility] 08/20 09:22 Order name: Wound Care; Complete Time: 09:49 [facility] 08/20 09:49 Order name: IV Saline Lock - Large Bore; Complete Time: 09:50 [facility] 08/20 12:30 Order name: TALAT RUANO EC:58 Rate is 133 beats/min. Rhythm is regular. QRS [place] is Normal. [place] interval is normal. anuja QRS interval is normal. QT interval is normal. No Q waves. T waves are Normal. No ST changes noted. Clinical impression: Abnormal EKG without significant change, Sinus tachycardia, and No evidence of ischemia. Interpreted by me. Reviewed by me. Administered Medications: 09:45 Drug: NS 0.9% 1000 ml Route: IV; Rate: 1 bolus; Site: right hand; ld1 10:52 Follow up: Response: No adverse reaction; IV Status: Completed infusion ld1 09:45 Drug: NS 0.9% 1000 ml Route: IV; Rate: 125 ml/hr; Site: left hand; ld1 09:45 Drug: Zosyn (piperacillin-tazobactam) 3.375 grams Route: IVPB; Infused Over: 60 mins; ld1 Site: right wrist; 09:45 Drug: NS 0.9% 1000 ml Route: IV; Rate: 1 bolus; Site: left hand; ld1 10:15 Drug: Xopenex (levalbuterol) 2.5 mg Route: Inhalation; ld1 10:51 Follow up: Response: No adverse reaction ld1 10:15 Drug: AtroVENT (ipratropium) Aerosol 0.5 mg Route: Inhalation; ld1 10:51 Follow up: Response: No adverse reaction ld1 10:15 Drug: Solu-CORTEF (hyrdoCORTISONE) 100 mg Route: IVP; Site: left hand; ld1 10:51 Follow up: Response: No adverse reaction ld1 11:03 Drug: Aspirin Suppository 300 mg Route: NH; ld1 11:56 Follow up: Response: No adverse reaction ld1 Point of Care Testing: Blood Glucose: 09:24 Blood Glucose: 238 mg/dL; ld1 Ranges: Critical Glucose Levels:Adult <50 mg/dl or >400 mg/dl <40 mg/dl or >180 mg/dl Disposition: 08/20/20 10:22 Hospitalization ordered by Adrienne Jacobs for Inpatient Admission. Preliminary diagnosis are Hypoxemia, Dyspnea, Altered mental status, unspecified, Dehydration, Sepsis, unspecified organism, Pressure ulcer of buttock, Acute sinusitis. - Bed requested for Telemetry/MedSurg (Inpatient). - Status is Inpatient Admission. ld1 - Condition is Serious. - Problem is new. - Symptoms have improved. Signatures: Dispatcher [employer] [facility] Edvin Barros MD MD cha Smirch, Shelby, RN RN ss Cami Parker RN RN ld1 Corrections: (The following items were deleted from the chart) 09:45 09:23 CORONAVIRUS+MR.LAB.BRZ ordered. [facility] 10:32 10:22 Hospitalization Ordered by Adrienne Jacobs MD for Inpatient Admission. Preliminary [facility] diagnosis is Hypoxemia; Dyspnea; Altered mental status, unspecified; Dehydration; Sepsis, unspecified organism; Pressure ulcer of buttock. Bed requested for Telemetry/MedSurg (Inpatient). Status is Inpatient Admission. Condition is Serious. Problem is new. Symptoms have improved. [facility] 16:07 10:32 08/20/2020 10:22 Hospitalization Ordered by Adrienne Jacobs MD for Inpatient ss Admission. Preliminary diagnosis is Hypoxemia; Dyspnea; Altered mental status, unspecified; Dehydration; Sepsis, unspecified organism; Pressure ulcer of buttock; Acute sinusitis. Bed requested for Telemetry/MedSurg (Inpatient). Status is Inpatient Admission. Condition is Serious. Problem is new. Symptoms have improved. [facility] 17:16 16:07 08/20/2020 10:22 Hospitalization Ordered by Adrienne Jacobs MD for Inpatient ld1 Admission. Preliminary diagnosis is Hypoxemia; Dyspnea; Altered mental status, unspecified; Dehydration; Sepsis, unspecified organism; Pressure ulcer of buttock; Acute sinusitis. Bed requested for Telemetry/MedSurg (Inpatient). Status is Inpatient Admission. Condition is Serious. Problem is new. Symptoms have improved. ss
--- NOTE | 2020-08-20 10:27 | RAD REPORT ---
EXAM DESCRIPTION: CT - Head Brain Wo Cont - 08/20/2020 10:10 am CLINICAL HISTORY: Declining state;Confused COMPARISON: Head C Spine Mpr Wo Con dated 07/20/2020 TECHNIQUE: Axial 5 mm thick images of the head were obtained without IV contrast. All CT scans are performed using dose optimization technique as appropriate and may include automated exposure control or mA/KV adjustment according to patient size. FINDINGS: No intracranial hemorrhage, mass, edema or shift of mid-line structures. No acute cortical based infarction identified. No cortical edema or sulcal effacement. Developing gliosis changes are present in the posteromedial left occipital lobe at the site of the CVA detailed on the July imaging. Patient has prominent underlying atrophy and advanced cerebral chronic ischemic change. Ventricles ar e in proportion to the volume loss. Chronic ischemic change extends into the basal ganglia, thalamus and brainstem tissues. Cerebellar atrophy also present. Mastoid air cells are clear. Air-fluid level is present in the right maxillary sinus with mucosal thi ckening. Anterior ethmoid air cell opacification on the right. Air-fluid level in the right frontal s inus. No acute bony findings. IMPRESSION: Right frontal sinus and right maxillary sinus show acute sinusitis change new from the M ay imaging study. Advanced atrophy and advanced chronic ischemic change with ventricles in proportion. Developing gliosis in the posteromedial left occipital lobe, site of prior CVA. This is normal aging of the prior CVA.
[2020-08-20] MEDS ORDERED: WATER FOR INJ,STERILE 10 ML ONE (11:14)
[2020-08-20] MEDS ORDERED: ASPIRIN 600 MG/SUPP PR ONE (11:15)
[2020-08-20 11:57] LABS: Arterial Blood Carboxyhemoglob 0.8 % (0-1.5); Blood Gas Oxyhemoglobin 86.6 % (94-97); Blood O2 Saturation 88.2 % (92-98.5)
[2020-08-20] MEDS ORDERED: NA CHLORIDE 0.9% 1,000 ML ONE (12:05)
[2020-08-20] MEDS ORDERED: ONDANSETRON 4 MG/2 ML VIAL IV PRN (12:25)
[2020-08-20] MEDS ORDERED: ACETAMINOPHEN 500 MG TAB PO PRN (12:25)
[2020-08-20] MEDS: NA CHLORIDE 0.9% 1,000 ML IV SCH ×2 (13:00→20:45)
[2020-08-20] MEDS: ALBUTEROL 2.5 MG/3 ML NEB SOL NEB SCH ×2 (14:00→19:45)
[2020-08-20] MEDS: IPRATROPIUM BROM 0.5MG/2.5ML NEB SCH ×2 (14:00→19:45)
[2020-08-20] MEDS: PIPER/TAZO/NS 3.375gm 3.375 GM/100 ML BAG IVPB SCH (20:45)
[2020-08-21] MEDS: PIPER/TAZO/NS 3.375gm 3.375 GM/100 ML BAG IVPB SCH ×4 (00:46→16:13)
[2020-08-21] MEDS: ALBUTEROL 2.5 MG/3 ML NEB SOL NEB SCH ×4 (01:10→20:00)
[2020-08-21] MEDS: IPRATROPIUM BROM 0.5MG/2.5ML NEB SCH ×4 (01:10→20:00)
[2020-08-21 05:43] LABS: Absolute Lymphocytes (CBC) 1.1 K/uL (0.7-4.9); Basophils % 0.8 % (0-1.3); Hematocrit 30.5 % (39.6-49.0); Lymphocytes % 11.1 % (15.3-44.8); MPV 7.6 fL (7.6-11.3); RBC Red Blood Cell Count 3.37 M/uL (4.33-5.43)
[2020-08-21 05:58] LABS: ALT/SGPT 17 U/L (12-78); AST/SGOT 21 U/L (15-37); Albumin 1.9 g/dL (3.4-5.0); Alkaline Phosphatase 46 U/L (45-117); BUN Blood Urea Nitrogen 18 mg/dL (7-18); Bicarbonate 26 mmol/L (21-32); Bilirubin Total 0.5 mg/dL (0.2-1.0); Glucose Level 135 mg/dL (74-106); HDL Cholesterol 41 mg/dL (40-60); LDL Cholesterol, Calculated 45 (<130); Magnesium 1.6 mg/dL (1.8-2.4); NT PRO-BNP 1042 pg/mL (<450); Phosphorus 3.2 mg/dL (2.5-4.9); Potassium 4.1 mmol/L (3.5-5.1); Sodium Level 147 mmol/L (136-145)
--- NOTE | 2020-08-21 07:08 | RAD REPORT ---
EXAM DESCRIPTION: [place] Single View08/21/2020 6:00 am CLINICAL HISTORY: Shortness of breath COMPARISON: August 20, 2020 FINDINGS: The lungs appear clear of acute infiltrate. The heart is normal size. The aorta is tortuo us/ectatic IMPRESSION: No acute abnormalities displayed
--- NOTE | 2020-08-21 07:39 | EKG ---
Test Date: 2020-08-20 Test Time: 09:22:14 Computer Numerical Control Programmer: LOUISA MEASUREMENT RESULTS: Intervals: Rate: 133 NE: 158 QRSD: 108 QT: 282 QTc: 419 [place]: P: NE: 158 QRS: -87 T: 116 INTERPRETIVE STATEMENTS: Sinus tachycardia with premature atrial complexes with aberrant conduction Left axis deviation Incomplete right bundle branch block Possible Lateral infarct, age undetermined Abnormal ECG Compared to ECG 07/20/2020 16:21:19 Atrial premature complex(es) now present Aberrant conduction of supraventricular beat(s) now present Left-axis deviation now present Myocardial infarct finding now present Atrial fibrillation no longer present Left anterior fascicular block no longer present ST (T wave) deviation no longer present Electronically Signed On 08-21-20 07:36:07 CDT by Johnny Ignacio
[2020-08-21] MEDS ORDERED: MAGNESIUM SULFATE 1 gm IVPB 1 GM/100 ML BAG IV ONE (09:00)
[2020-08-21] MEDS: ENOXAPARIN 40 MG/0.4 ML SQ SCH (09:27)
--- NOTE | 2020-08-21 09:30 | P.HP ---
Certification for Inpatient Patient admitted to: Inpatient With expected LOS: >2 Midnights Patient will require the following post-hospital care: None Practitioner: I am a practitioner with admitting privileges, knowledge of patient current condition, hospital course, and medical plan of care. Services: Services provided to patient in accordance with Admission requirements found in Title 42 Section 412.3 of the Code of Federal Regulations Patient History Date of Service: 08/20/20 Reason for admission: Sepsis/aspiration pneumonia History of Present Illness: Patient is a 85-year-old gentleman who came to the hospital with aspiration pneumonia. Patient is a very debilitated and bed-bound. Patient is very cachectic appearing. Patient came to the hospital for further evaluation. Patient has decubitus ulcer on his back. This is a stage I or stage II. Patient looks like he is unable to any protect his airway properly. High risk of persistent aspiration. Patient is hypotensive. Patient was also tachycardic. Patient was admitted to the hospital for further evaluation. Allergies No Known Allergies Allergy (Verified 07/02/20 19:45) Home Medications: Aspirin 81 mg PO DAILY 05/29/20 Atorvastatin Calcium [Lipitor*] 20 mg PO DAILY 05/29/20 Cyanocobalamin (Vitamin B-12) [B-12] 1,000 mcg PO DAILY 05/29/20 Lisinopril [Zestril] 2.5 mg PO PRN PRN 05/29/20 Metformin HCl [Glucophage*] 500 mg PO DAILY 05/29/20 Tamsulosin HCl 0.4 mg PO DAILY 05/29/20 Benzonatate [Tessalon Perle*] 100 mg PO TID PRN #10 cap 07/05/20 Metoprolol Tartrate [Lopressor*] 25 mg PO BID #60 tab 07/05/20 Clopidogrel Bisulfate [Plavix*] 75 mg PO DAILY 08/21/20 Mirtazapine [Remeron*] 15 mg PO BEDTIME 08/21/20 Sertraline HCl 25 mg PO BEDTIME 08/21/20 - Past Medical/Surgical History Diabetic: Yes -: diabetes -: Dyslipidemia -: GERD -: HTN -: neuropathy -: urinary incontinence -: Aortic Stent -: Hernia repair -: appendectomy -: Cholecystectomy - Family History Father Medical History: Hypertension, Diabetes, Other (see notes) Notes: Urinary incontinence - Social History Smoking Status: Former smoker Alcohol use: No CD- Drugs: No Caffeine use: Yes Review of Systems 10-point ROS is otherwise unremarkable Physical Examination - Vital Signs Temperature: 97.2 F Blood Pressure: 126/65 Pulse: 83 Respirations: 16 Pulse Ox (%): 99 - Physical Exam General: Cachectic, Demented HEENT: Atraumatic, PERRLA, Mucous membr. moist/pink, EOMI, Sclerae nonicteric Neck: Supple, 2+ carotid pulse no bruit, No LAD, Without JVD or thyroid abnormality Respiratory: Diminished, Rhonchi/gurgles Cardiovascular: Regular rate/rhythm, Normal S1 S2, No murmurs Gastrointestinal: Normal bowel sounds, Soft and benign, Non-distended, No tenderness Musculoskeletal: No clubbing, No swelling, No tenderness Integumentary: Skin breakdown Neurological: Abnormal gait, Abnormal speech, Abnormal strength, Abnormal tone (Contractures), Dementia Lymphatics: No axilla or inguinal lymphadenopathy - Studies Laboratory Data (last 24 hrs) 08/20/20 09:25: PT 12.4, INR 1.08 08/20/20 09:25: WBC 13.60 H D, Hgb 12.7 L, Hct 38.1 L, Plt Count 438 H D 08/20/20 09:25: Sodium 141, Potassium 5.0, BUN 19 H, Creatinine 0.74, Glucose 194 H, Magnesium 1.8, Total Bilirubin 0.6, AST 17, ALT 23, Alkaline Phosphatase 60, Lipase 67 L Microbiology Data (last 24 hrs): 08/20/20 09:25 Blood - Blood Blood Culture Gram Stain - Final 08/20/20 09:34 Sputum Sputum Gram Stain - Final 08/20/20 09:30 Nasopharnyx Influenza Type A Antigen Screen - Final 08/20/20 09:30 Nasopharnyx Influenza Type B Antigen Screen - Final Assessment & Plan - Problems (Diagnosis) (1) Aspiration pneumonia Current Visit: Yes Status: Acute (2) Septic shock Current Visit: Yes Status: Acute (3) AAA (abdominal aortic aneurysm) Onset Date: 01/19/17 Current Visit: No Status: Chronic Qualifiers: (4) BPH (benign prostatic hyperplasia) Current Visit: No Status: Chronic Qualifiers: (5) CAD (coronary artery disease) Onset Date: 01/19/17 Current Visit: No Status: Chronic Qualifiers: (6) Diabetes mellitus Onset Date: 01/19/17 Current Visit: No Status: Chronic Qualifiers: (7) HTN (hypertension) Onset Date: 01/19/17 Current Visit: No Status: Chronic Qualifiers: (8) Hyperlipidemia Current Visit: No Status: Chronic Qualifiers: - Plan 1. Continue with IV antibiotics; patient given aggressive IV hydration. Monitor volume status closely for fluid overload 2. Awaiting sputum and blood culture 3. Repeat chest x-ray 4. Will proceed with CT scan of the chest if pneumonia is not improved 5. Appreciate pulmonary consultation 6. Continue with nebs as needed 7. O2 per protocol 8. Continue with gentle hydration 9. Repeat labs including CBC and renal function in a.m. 10. Continue with wound care 11. GI and DVT prophylaxis Discharge Plan: Home Plan to discharge in: Greater than 2 days - Advance Directives Does patient have a Living Will: No Does patient have a Durable POA for Healthcare: Yes - Code Status/Comfort Care Code Status Assessed: Yes Code Status: Full Code Critical Care: No Time Spent Managing PTS Care (In Minutes): 45
[2020-08-21] MEDS: NA CHLORIDE 0.9% 1,000 ML IV SCH (16:03)
[2020-08-22] MEDS: PIPER/TAZO/NS 3.375gm 3.375 GM/100 ML BAG IVPB SCH ×3 (00:38→18:40)
[2020-08-22] MEDS: IPRATROPIUM BROM 0.5MG/2.5ML NEB SCH ×4 (01:40→20:18)
[2020-08-22] MEDS: ALBUTEROL 2.5 MG/3 ML NEB SOL NEB SCH ×4 (01:40→20:18)
[2020-08-22] MEDS: NA CHLORIDE 0.9% 1,000 ML IV SCH ×2 (05:00→18:20)
--- NOTE | 2020-08-22 08:20 | EKG ---
Test Date: 2020-08-21 Test Time: 02:54:12 Hospital Carrier: SREG MEASUREMENT RESULTS: Intervals: Rate: 96 [place]: 186 QRSD: 122 QT: 430 QTc: 543 [place]: P: 67 [place]: 186 QRS: -79 T: 65 INTERPRETIVE STATEMENTS: Sinus rhythm with marked sinus arrhythmia Right bundle branch block Left anterior fascicular block Bifascicular block Septal infarct, age undetermined Possible Lateral infarct, age undetermined Abnormal ECG Compared to ECG 08/20/2020 09:22:14 Right bundle-branch block now present Left anterior fascicular block now present Bifascicular block now present Sinus tachycardia no longer present Atrial premature complex(es) no longer present Aberrant conduction of supraventricular beat(s) no longer present Electronically Signed On 08-22-20 08:18:34 CDT by Johnny Ignacio
[2020-08-22] MEDS: ENOXAPARIN 40 MG/0.4 ML SQ SCH (10:34)
[2020-08-22] MEDS ORDERED: D5W 1,000 ML IV SCH (11:00)
[2020-08-22] MEDS: GLUCERNA SHAKE 237 ML CAN PO SCH (20:56)
[2020-08-22] MEDS: JUVEN PACKET PO SCH (20:56)
[2020-08-23] MEDS: PIPER/TAZO/NS 3.375gm 3.375 GM/100 ML BAG IVPB SCH ×3 (00:53→17:22)
[2020-08-23] MEDS: IPRATROPIUM BROM 0.5MG/2.5ML NEB SCH ×4 (02:40→20:18)
[2020-08-23] MEDS: ALBUTEROL 2.5 MG/3 ML NEB SOL NEB SCH ×4 (02:40→20:18)
--- NOTE | 2020-08-23 03:43 | P.PN ---
Subjective Date of Service: 08/21/20 Subjective: No new changes, No C/O voiced, Improving Review of Systems 10-point ROS is otherwise unremarkable Physical Examination - Vital Signs Temperature: 97.3 F Blood Pressure: 159/88 Pulse: 92 Respirations: 17 Pulse Ox (%): 96 - Physical Exam General: Alert, In no apparent distress, Oriented x1, Demented, Confused Respiratory: Clear to auscultation bilaterally, Normal air movement Cardiovascular: Regular rate/rhythm, Normal S1 S2, No murmurs Gastrointestinal: Normal bowel sounds, Soft and benign, Non-distended, No tenderness Musculoskeletal: No clubbing, No swelling, No tenderness Integumentary: Skin lesion Neurological: Cranial nerves 3-12 intact, Abnormal speech, Abnormal strength - Studies Microbiology Data (last 24 hrs): 08/20/20 09:34 Sputum Sputum Gram Stain - Final 08/20/20 09:25 Blood - Blood Blood Culture Gram Stain - Final Medications List Reviewed: Yes Assessment & Plan - Problems (Diagnosis) (1) Aspiration pneumonia Current Visit: Yes Status: Acute (2) Septic shock Current Visit: Yes Status: Acute (3) AAA (abdominal aortic aneurysm) Onset Date: 01/19/17 Current Visit: No Status: Chronic Qualifiers: (4) BPH (benign prostatic hyperplasia) Current Visit: No Status: Chronic Qualifiers: (5) CAD (coronary artery disease) Onset Date: 01/19/17 Current Visit: No Status: Chronic Qualifiers: (6) Diabetes mellitus Onset Date: 01/19/17 Current Visit: No Status: Chronic Qualifiers: (7) HTN (hypertension) Onset Date: 01/19/17 Current Visit: No Status: Chronic Qualifiers: (8) Hyperlipidemia Current Visit: No Status: Chronic Qualifiers: - Plan Continue with plan of care as mentioned below 1. Continue with IV antibiotics; patient given aggressive IV hydration. Advanced diet; ensure with meals 2. Awaiting cultures 3. Repeat chest x-ray 4. Advanced diet as tolerated 5. Speech therapy consultation 6. Continue with nebs as needed 7. O2 per protocol 8. Continue with gentle hydration; if tolerating diet then Hep-Lock IV 9. Repeat labs 10. Continue with wound care 11. GI and DVT prophylaxis Discharge Plan: Home Plan to discharge in: Greater than 2 days - Advance Directives Does patient have a Living Will: No Does patient have a Durable POA for Healthcare: Yes - Code Status/Comfort Care Code Status: Full Code Critical Care: No Time Spent Managing PTS Care (In Minutes): 35
--- NOTE | 2020-08-23 03:45 | P.PN ---
Date of Service: 08/22/20 Subjective Patient continues to wake up in improved. Patient did well with ice cream. Will have speech therapy do a modified barium swallow study. Discuss with family regarding discharge home with home health or hospice care. If they are unable to take care of patient he will need to go to a skilled facility Review of Systems 10-point ROS is otherwise unremarkable Physical Examination - Vital Signs Reviewed - Physical Exam General: Alert, In no apparent distress, Oriented x1, Demented, Confused Respiratory: Clear to auscultation bilaterally, Normal air movement Cardiovascular: Regular rate/rhythm, Normal S1 S2, No murmurs Gastrointestinal: Normal bowel sounds, Soft and benign, Non-distended, No tender ness Musculoskeletal: No clubbing, No swelling, No tenderness Integumentary: Skin lesion Neurological: Cranial nerves 3-12 intact, Abnormal speech, Abnormal strength Assessment & Plan - Problems (Diagnosis) (1) Aspiration pneumonia Current Visit: Yes Status: Acute (2) Septic shock Current Visit: Yes Status: Acute (3) AAA (abdominal aortic aneurysm) Onset Date: 01/19/17 Current Visit: No Status: Chronic Qualifiers: (4) BPH (benign prostatic hyperplasia) Current Visit: No Status: Chronic Qualifiers: (5) CAD (coronary artery disease) Onset Date: 01/19/17 Current Visit: No Status: Chronic Qualifiers: (6) Diabetes mellitus Onset Date: 01/19/17 Current Visit: No Status: Chronic Qualifiers: (7) HTN (hypertension) Onset Date: 01/19/17 Current Visit: No Status: Chronic Qualifiers: (8) Hyperlipidemia Current Visit: No Status: Chronic Qualifiers: - Plan Continue with plan of care as mentioned below 1. Continue with IV antibiotics; Advanced diet; ensure with meals; Hep-Lock IV 2. Awaiting cultures 3. Repeat chest x-ray if pulmonary symptoms worsen 4. Advanced diet as tolerated 5. Speech therapy consultation 6. Continue with nebs as needed 7. O2 per protocol 8. Physical therapy evaluation 9. Repeat labs 10. Continue with wound care 11. GI and DVT prophylaxis
[2020-08-23] MEDS ORDERED: ASPIRIN 81 MG CHEWABLE TABLET PO SCH (09:00)
[2020-08-23] MEDS: JUVEN PACKET PO SCH (09:00)
[2020-08-23] MEDS ORDERED: METOPROLOL TAR 25 MG TAB PO SCH (09:00)
[2020-08-23] MEDS ORDERED: TAMSULOSIN 0.4 MG SR CAP PO SCH (09:00)
[2020-08-23] MEDS ORDERED: CYANOCOBALAMIN 1,000 MCG TAB PO SCH (09:00)
[2020-08-23] MEDS ORDERED: ATORVASTATIN 20 MG TAB PO SCH (09:00)
[2020-08-23] MEDS ORDERED: CLOPIDOGREL 75 MG TABLET PO SCH (09:00)
[2020-08-23] MEDS: GLUCERNA SHAKE 237 ML CAN PO SCH (09:00)
[2020-08-23] MEDS: ENOXAPARIN 40 MG/0.4 ML SQ SCH (10:28)
--- NOTE | 2020-08-23 10:34 | RAD REPORT ---
EXAM DESCRIPTION: RAD - Barium Swallow Modified - 08/23/2020 10:16 am CLINICAL HISTORY: Dysphagia COMPARISON: Abdomen Pelvis Wo Contrast dated 05/28/2020 TECHNIQUE: The patient was given liquid, semi-solid and solid forms of barium. Lateral view fluorosc opic imaging was performed in conjunction with speech pathology service. FINDINGS: Laryngeal penetration not cleared with thin liquid, residue in laryngeal vestibule. Pharyngeal residue moderate to severe with thin vallecular, trace with thin pyriform. Limited study due to pt refusal and spitting out nectar, honey and pudding barium despite encourageme nt and coaxing. Total fluoroscopy time: 1 minutes and 14 seconds
[2020-08-23 11:13] LABS: Absolute Lymphocytes (CBC) 0.8 K/uL (0.7-4.9); Basophils % 0.4 % (0-1.3); Hematocrit 34.2 % (39.6-49.0); Lymphocytes % 8.8 % (15.3-44.8); MPV 7.4 fL (7.6-11.3); RBC Red Blood Cell Count 3.77 M/uL (4.33-5.43)
[2020-08-23 11:40] LABS: BUN Blood Urea Nitrogen 13 mg/dL (7-18); Bicarbonate 25 mmol/L (21-32); Glucose Level 163 mg/dL (74-106); Magnesium 1.7 mg/dL (1.8-2.4); NT PRO-BNP 2655 pg/mL (<450); Potassium 3.3 mmol/L (3.5-5.1); Sodium Level 138 mmol/L (136-145)
[2020-08-23 17:32] VITALS: BMI 21.6
[2020-08-23 17:54] VITALS: BP 101/67; TEMP 97
[2020-08-23] MEDS ORDERED: MIRTAZAPINE 15 MG TAB PO SCH (21:00)
[2020-08-23] MEDS ORDERED: SERTRALINE HCL 50 MG TAB PO SCH (21:00)
[2020-08-23 22:53] VITALS: O2SAT 96
--- NOTE | 2020-09-03 17:12 | P.DS ---
Discharge Date: 08/23/20 Disposition: HOSPICE-HOME Discharge Condition: FAIR Reason for Admission: Sepsis/aspiration pneumonia - Problems (1) Aspiration pneumonia Status: Acute (2) Septic shock Status: Acute (3) AAA (abdominal aortic aneurysm) Onset Date: 01/19/17 Status: Chronic Qualifiers: (4) BPH (benign prostatic hyperplasia) Status: Chronic Qualifiers: (5) CAD (coronary artery disease) Onset Date: 01/19/17 Status: Chronic Qualifiers: (6) Diabetes mellitus Onset Date: 01/19/17 Status: Chronic Qualifiers: (7) HTN (hypertension) Onset Date: 01/19/17 Status: Chronic Qualifiers: (8) Hyperlipidemia Status: Chronic Qualifiers: Brief History of Present Illness: Patient is a 85-year-old gentleman who came to the hospital with aspiration pneumonia. Patient is a very debilitated and bed-bound. Patient is very cachectic appearing. Patient came to the hospital for further evaluation. Patient has decubitus ulcer on his back. This is a stage I or stage II. Patient looks like he is unable to any protect his airway properly. High risk of persistent aspiration. Patient is hypotensive. Patient was also tachy cardic. Patient was admitted to the hospital for further evaluation. Hospital Course: Patient was treated with antibiotics. Patient's clinical symptoms have improved. Patient is severely debilitated any is a high risk of recurrent aspiration because of his severe debility. Family decided to proceed with hospice. Spoke with hospice care team per family's choice and we arrange for discharge to home with hospice. Patient will be discharge once all the arrangements are completed. Continue with comfort measures going forward and comfort foods. Vital Signs/Physical Exam: Temp Pulse Resp BP Pulse Ox 97 F 72 18 101/67 98 08/23/20 16:00 08/23/20 16:00 08/23/20 16:00 08/23/20 16:00 08/23/20 16:00 General: Demented, Confused Cardiovascular: Regular rate/rhythm, Normal S1 S2, Systolic murmur Laboratory Data at Discharge: WBC 9.00 K/uL (4.3-10.9) 08/23/20 11:00 Hgb 11.2 g/dL (13.6-17.9) L 08/23/20 11:00 Hct 34.2 % (39.6-49.0) L 08/23/20 11:00 Plt Count 354 K/uL (152-406) 08/23/20 11:00 PT 12.4 SECONDS (9.5-12.5) 08/20/20 09:25 INR 1.08 08/20/20 09:25 Sodium 138 mmol/L (136-145) 08/23/20 11:00 Potassium 3.3 mmol/L (3.5-5.1) L 08/23/20 11:00 BUN 13 mg/dL (7-18) 08/23/20 11:00 Creatinine 0.59 mg/dL (0.55-1.3) 08/23/20 11:00 Glucose 163 mg/dL (74-106) H 08/23/20 11:00 Phosphorus 3.2 mg/dL (2.5-4.9) 08/21/20 05:20 Magnesium 1.7 mg/dL (1.8-2.4) L 08/23/20 11:00 Total Bilirubin 0.5 mg/dL (0.2-1.0) 08/21/20 05:20 AST 21 U/L (15-37) 08/21/20 05:20 ALT 17 U/L (12-78) 08/21/20 05:20 Alkaline Phosphatase 46 U/L (45-117) 08/21/20 05:20 Troponin I 0.90 ng/mL (0.0-0.045) H* 08/21/20 01:33 Triglycerides 78 mg/dL (<150) 08/21/20 05:20 Cholesterol 102 mg/dL (<200) 08/21/20 05:20 HDL Cholesterol 41 mg/dL (40-60) 08/21/20 05:20 Cholesterol/HDL Ratio 2.49 08/21/20 05:20 Lipase 67 U/L (73-393) L 08/20/20 09:25 Home Medications: Aspirin 81 mg PO DAILY 05/29/20 Atorvastatin Calcium [Lipitor*] 20 mg PO DAILY 05/29/20 Cyanocobalamin (Vitamin B-12) [B-12] 1,000 mcg PO DAILY 05/29/20 Tamsulosin HCl 0.4 mg PO DAILY 05/29/20 Benzonatate [Tessalon Perle*] 100 mg PO TID PRN #10 cap 07/05/20 Metoprolol Tartrate [Lopressor*] 25 mg PO BID #60 tab 07/05/20 Clopidogrel Bisulfate [Plavix*] 75 mg PO DAILY 08/21/20 Mirtazapine [Remeron*] 15 mg PO BEDTIME 08/21/20 Sertraline HCl 25 mg PO BEDTIME 08/21/20 Glucerna Shake [Glucerna*] 237 ml PO BID #60 can 08/23/20 Kiel [Kiel*] 1 pkt PO BID #30 powd.pack 08/23/20 New Medications: Glucerna Shake [Glucerna*] 237 ml PO BID #60 can Kiel [Kiel*] 1 pkt PO BID #30 powd.pack Diet: ADA Activity: Fall precautions Followup: Brayan Bauer MD [Primary Care Provider] - Time spent managing pt's care (in minutes): 35
== END 2020-08-23 20:45 | disposition hospice, home (50) | DRG 871 ==
LOC: ER 09:10 → ERHOLD 12:26 → 2ND 16:27
PROVIDERS: ADMIT Hospitalist; ATTEND Hospitalist
DX: A41.9 Sepsis, unspecified organism (principal); J18.9 Pneumonia, unspecified organism; J69.0 Pneumonitis due to inhalation of food and vomit; R64 Cachexia; I71.4 Abdominal aortic aneurysm, without rupture; N40.0 Benign prostatic hyperplasia without lower urinary tract symptoms; I25.10 Atherosclerotic heart disease of native coronary artery without angina pectoris; E11.9 Type 2 diabetes mellitus without complications; I10 Essential (primary) hypertension; E78.5 Hyperlipidemia, unspecified; Z68.21 Body mass index [BMI] 21.0-21.9, adult; L89.102 Pressure ulcer of unspecified part of back, stage 2; Z74.01 Bed confinement status; Z20.822 Contact with and (suspected) exposure to COVID-19
CPT/HCPCS: 36415; 70450; 71045; 74230; 80048; 80053; 80061; 80076; 82805; 82947; 83605; 83690; 83735; 83880; 84100; 84145; 84484; 85025; 85610; 86850; 86900; 86901; 87040; 87070; 87077; 87186; 87205; 87804; 92611; 93005; 94760; 99291; J1650; J1720; J2543; J3475; J7030; U0003